=== PATIENT | female | born 1950 | race Caucasian/White ===

== ENCOUNTER 2020-04-17 18:19 | Emergency (ER) | payer MEDICARE, SELFPAY ==
[2020-04-17 18:28] VITALS: BP 155/68; PULSE 83; RESP 18; TEMP 38.6; O2SAT 99; BMI 28.3
--- NOTE | 2020-04-17 18:55 | W.ED.FEVER ---
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 On Sunday she had spent a significant amount of time sitting and talking to the patient's granddaughter across a table. Neither was masked. The granddaughter was positive for COVID at that time and had apparently been symptomatic. My patient started running a fever and having body aches yesterday. She has had a cough, decreased taste and smell, sore throat. She has body aches but notes that she has had a recent flareup of polymyalgia rheumatica and is not currently on medications for it. She denies any other medical history. She does not feel short of breath and her oxygen saturation here is 100%. Associated symptoms: Reports chills; Deny abdominal pain, flank pain, chest pain, headache(s), nausea or vomiting Review of Systems General: Reports: 10 or more systems reviewed and unremarkable except in HPI and below Const: Reports: fever(s), chills and malaise; Denies: fatigue Eyes: Denies: change in vision ENMT: Denies: odynophagia Card: Denies: chest pain or swelling of feet/ankles Resp: Reports: non-productive cough; Denies: dyspnea or productive cough GI: Denies: abdominal pain, nausea or vomiting : Denies: flank pain or difficulty voiding Musc: Denies: neck pain or back pain Skin/Breast: Denies: rash Neuro: Denies: headache(s), numbness in extremities or weakness in extremities Osmany/Lymph: Denies: easy bruising or easy bleeding Physical Exam Const: COMMON NORMALS: no acute distress, patient oriented x3, no limitations and alert GENERAL APPEARANCE: cooperative and comfortable HENMT: HEAD & SCALP: normal to inspection FACE & SINUS: normal facial exam Eye: GENERAL EYE: appearance normal, both eyes and all related structures Neck/C-Spine: COMMON NORMALS: supple, no meningeal signs and no JVD Chest: COMMONS NORMALS: normal inspection of the chest Resp: COMMON NORMALS: normal respiratory effort, No use of accessory muscles and clear to auscultation bilaterally AUSCULTATION: clear to auscultation bilaterally Cardio: COMMON NORMALS: no JVD, regular rate, regular rhythm and No murmurs present (Cardio) RATE: regular rate RHYTHM: regular rhythm GI: COMMON NORMALS: Normal to inspection, nondistended, normoactive bowel sounds present, Soft to palpation and non-tender INSPECTION: Yes normal to inspection AUSCULTATION: Yes normoactive bowel sounds PALPATION: Yes Soft to palpation Back/Pelvis: COMMON NORMALS: thoracic and lumbar spine normal to inspection Extremity: COMMON NORMALS: normal to inspection Neuro: COMMON NORMALS: patient oriented x3, moves all extremities, no focal motor deficits and no sensory deficits noted SENSORIUM/ORIENTATION: Yes alert MENINGEAL SIGNS: Yes no meningeal signs Psych: COMMON NORMALS: mental status grossly normal, cooperative and normal affect Skin: COMMON NORMALS: no rashes or lesions noted and turgor normal GENERAL SKIN EXAM: no rashes or lesions noted and turgor normal Course Vital Signs: Vital signs: Vital Signs Temperature 101.5 F H 04/17/20 18:28 Pulse Rate 86 04/17/20 19:56 Respiratory Rate 16 04/17/20 19:56 Blood Pressure 144/83 04/17/20 19:56 Pulse Oximetry 98 04/17/20 19:56 MDM - Fever MDM Narrative: Medical decision making narrative: Patient with a potentially significant exposure to a COVID positive person. This would have occurred on Sunday. Her symptoms started last night with fever. Her symptoms are also consistent with COVID. COVID test was sent and we discussed at some length when admission was recommended, when dexamethasone was recommended. She asked about hydroxychloroquine and I did not want to prescribe that as there is no evidence showing benefit and there is evidence of potential harm. We discussed checking her oxygen saturations at home and she is able to do that. She will return if she has low oxygen saturations or feels short of breath or has any other new symptoms. She will stay off work until the test result is back and if positive will stay home beyond that. Discharge Plan Discharge Patient Disposition: Home Clinical Impression: COVID-19 virus test result unknown Fever Qualifiers: Fever type: unspecified Qualified Code(s): R50.9 - Fever, unspecified Condition: Stable Discharge Orders: Discharge Order (Routine); Ordered 04/17/20 Ordered By: Elizabeth Resendiz Referrals: Beto Hoffmann MD [Primary Care Provider] - Discharge Diet: Usual diet Discharge Activity: Resume usual activity Patient Instructions: Fever in Adults (ED) Activity Restrictions/Additional Instructions: Self isolate while awaiting tests results. Continue ibuprofen and or Tylenol for fever or body aches. Check your oxygen level with a pulse ox at home. If your saturations are consistently lower than 93%, or you feel short of breath please return to the ER immediately. Discharge Date/Time: 04/17/20 20:00 Coding Level of Care Code ED Dental Laboratory Technician for Herberth Stewart
[2020-04-17] MEDS: acetaminophen 500 mg Tablet 1000 MG PO (19:38)
[2020-04-17 19:56] VITALS: BP 144/83; PULSE 86; RESP 16; O2SAT 98
[2020-04-19 15:00] LABS: Quest SARS-CoV-2 RNA DETECTED (NOT DETECTED)
== END 2020-04-17 20:00 | disposition home or self-care (01) ==
PROVIDERS: Emergency Provider Emergency Medicine; PCP Family Medicine
DX: U07.1 COVID-19 (principal)
CPT/HCPCS: 12345; 87635; 99281; 99283

== ENCOUNTER → 2020-05-10 11:05 | Outpatient (BNVA) | payer MEDICARE, SELFPAY | PROVIDERS: PCP Family Medicine; Visit Provider Internal Medicine Rheumatology | DX: M35.3 Polymyalgia rheumatica (principal); Z79.899 Other long term (current) drug therapy; Z11.59 Encounter for screening for other viral diseases; Z11.1 Encounter for screening for respiratory tuberculosis; U07.1 COVID-19; M19.90 Unspecified osteoarthritis, unspecified site | CPT/HCPCS: 20610; 36415; 80076; 82306; 82565; 85025; 85651; 86140; 86431; 86480; 86704; 86803; 87340; 99204 ==

== ENCOUNTER 2020-06-08 14:35 | Outpatient (CLI) | payer MEDICARE, SELFPAY ==
--- NOTE | 2020-06-08 14:42 | XR_ITS ---
WS: [id number] CHEST 2 VIEWS HISTORY: inflammatory arthritis COMPARISON: None available. Lungs: Clear with no abnormality. No pleural effusion or pneumothorax. Cardiac size: Normal. Mediastinum/Aorta: Normal mediastinum. Bones: Mild increase in thoracic kyphosis. XR/XR chest 2V* [id number] IMPRESSION: No acute cardiopulmonary disease.
--- NOTE | 2020-06-08 14:42 | XR_ITS ---
WS: [id number] RIGHT KNEE: 3 VIEW(S) TECHNIQUE: AP, oblique(s) and lateral. HISTORY: inflammatory arthritis COMPARISON: None available. No fracture or dislocation. Mild tricompartment joint space narrowing. No erosions or osteophytes of any significance. No joint effusion. No soft tissue abnormality. XR/XR knee RT 3V* [id number] IMPRESSION: Mild tricompartment joint space narrowing. No erosions.
--- NOTE | 2020-06-08 14:42 | XR_ITS ---
WS: [id number] LEFT KNEE: 3 VIEW(S) TECHNIQUE: AP, oblique(s) and lateral. HISTORY: inflammatory arthritis COMPARISON: None available. No fracture or dislocation. Minimal tricompartment joint space narrowing. No erosions. No joint effusion. No soft tissue abnormality. XR/XR knee LT 3V* [id number] IMPRESSION: Minimal tricompartment joint space narrowing.
== END 2020-06-08 14:36 | disposition home or self-care (01) ==
LOC: RADWPI 14:38
PROVIDERS: PCP Family Medicine; Visit Provider Internal Medicine Rheumatology
DX: M19.90 Unspecified osteoarthritis, unspecified site (principal)
CPT/HCPCS: 71046; 73562

== ENCOUNTER → 2020-06-16 14:40 | Outpatient (BNVA) | payer MEDICARE, SELFPAY | PROVIDERS: PCP Family Medicine; Visit Provider Internal Medicine Rheumatology | DX: M05.79 Rheumatoid arthritis with rheumatoid factor of multiple sites without organ or systems involvement (principal); Z79.899 Other long term (current) drug therapy; Z87.39 Personal history of other diseases of the musculoskeletal system and connective tissue; Z86.19 Personal history of other infectious and parasitic diseases | CPT/HCPCS: 99214 ==

== ENCOUNTER → 2020-07-13 13:50 | Outpatient (BNVA) | payer MEDICARE, SELFPAY | PROVIDERS: PCP Family Medicine; Visit Provider Internal Medicine Rheumatology | DX: Z79.899 Other long term (current) drug therapy (principal) | CPT/HCPCS: 36415; 80076; 82565; 85025; 85651; 86140 ==

== ENCOUNTER 2020-07-30 08:47 | Outpatient (CLI) | payer MEDICARE, SELFPAY ==
--- NOTE | 2020-07-30 09:00 | CT_ITS ---
WS: [id number] CT scan of the abdominal aorta. Additional two-dimensional coronal and sagittal reconstruction was pe rformed. MIP images were also performed. 07/30/2020 Clinical Data: AAA Comparison: None. DLP: 897.[address] scans at [facility] use at least one of these dose optimization techniques: automat ed exposure control; mA and/or kV adjustment per patient size (includes targeted exams where dose is matched to clinical indication); or iterative reconstruction. Findings: Vascular findings: The abdominal aorta is normal in size. There is minimal atherosclerotic change of the abdominal aorta extending into the common iliac arteries. The renal arteries, celiac artery, SMA and MARTHA are all normal. The common iliac arteries bifurcate into the internal and external iliac lisette kailyn and these are normal. Abdominal findings: The lower lungs show no nodules masses or effusions. There is a small hiatal hernia. The liver, splee n, gallbladder, pancreas and adrenal glands are not remarkable. The kidneys show excellent bilateral contrast excretion with small bilateral cortical cysts. No masses, hydronephrosis or renal calculi ar e noted. The stomach, small bowel and colon show no abnormalities. There is fecal material throughout the colon and numerous sigmoid diverticula. No appendicitis or diverticulitis is seen. No abscess, a denopathy, ascites, mass, obstruction, or free air is seen. There is a minute anterior umbilical ruby ia containing only fat. The bladder and uterus are unremarkable. There is minimal osteoarthritic abad ges of the lumbar vertebral bodies with disc narrowing at L4-L5. CT/CT angio abdomen pelvis [id number] Impression: 1. Negative for abdominal aortic aneurysm. 2. Negative for acute intra-abdominal or pelvic abnormalities.
[2020-07-30] MEDS: iohexol 350 mg/mL 100 mL Btl IV (09:39)
== END 2020-07-30 08:48 | disposition home or self-care (01) ==
LOC: RADWPI 08:50
PROVIDERS: PCP Family Medicine; Visit Provider Internal Medicine Cardiovascular Disease
DX: I71.4 Abdominal aortic aneurysm, without rupture (principal)
CPT/HCPCS: 74174; Q9967

== ENCOUNTER 2020-08-31 09:01 | Outpatient (CLI) | payer MEDICARE, SELFPAY ==
--- NOTE | 2020-08-31 09:37 | ECG_ITS ---
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 Baseline heart rate was 65 beats per minute. Baseline blood pressure was 166/81 millimeters of mercury. Target heart rate was 151 beats per minute. Maximum heart rate achieved was 130, which was 86 % of the target heart rate. Maximum blood pressure was 215/96 millimeters of mercury. Total exercise time was 4 minutes 30 seconds. Maximum METs achieved was 5.4, maximum VO2 was 18.9 . The reason for ending the test was maximum effort achieved. The patient complained of shortness of breath during the stress test, which then resolved at the end of the test. ELECTROCARDIOGRAM: BASELINE: Sinus rhythm, normal axis, interventricular conduction delay, otherwise no significant ST-T changes at the baseline noted. EXERCISE: At the peak exercise level, no significant ST-T changes suggestive of ischemia noted. RECOVERY: During the recovery period, heart rate dropped appropriately. No significant ST-T changes in the recovery suggestive of ischemia noted. CONCLUSION: 1. Exercise capacity poor. 2. Heart rate response was appropriate. 3. Blood pressure response was hypertensive. 4. Symptoms not suggestive of ischemia. 5. Electrocardiogram portion of the stress test was not suggestive of ischemia. 6. Nuclear scan will be documented separately. Please note that due to underachievement of METs and low exercise capacity specificity and sensitivity of EKG portion of the stress test will be low. Electronically Signed On 08-31-2020 18:52:51 CASINO MANAGER by TERESITA RÍOS [id number]
--- NOTE | 2020-08-31 09:37 | NMCV_ITS ---
NM bienvenido perf SPECT r/s* [id number] Armida Lawler Age: 69 Gender: F : 1950 Exam Date: 08/31/2020 09:37 Ordering Phys: Sierra Ríos MD ([email or web address]) Technologist: PARIS Capps Exam Location: [facility] Indications: Chest pain STRESS TEST Please see separate stress test report in [facility] for full findings IMAGE PROTOCOL Rest/Stress 1 Exercise Day Radiopharmaceutical Dose (mCi) Administration Site Administered by Rest: Tc-99m 10.7 IV Gisella Dung, POWER CLEANER OPERATOR Sestamibi Stress:Tc-99m 32.6 IV Gisella Dung, POWER CLEANER OPERATOR Sestamibi Rest: 31-Aug-2020 60 Discovery 630 Stress: 31-Aug-2020 45 Discovery 630 Radiopharmaceutical was injected at 85 % maximum heart rate. Images obtained in supine and prone position. SPECT RESULTS Technical Quality: Good Raw Data Analysis: Breast attenuation Image Corrections: Patient motion artifact - motion correction applied supine stress only. Summed Stress Score: 0 Summed Rest Score: 0 Summed Difference Score: 0 PERFUSION FINDINGS SPECT images demonstrate homogeneous tracer distribution throughout the myocardium. FUNCTIONAL RESULTS (calculated via Gated SPECT) Stress Image LV EF (%): 76 Stress EDV (mL):54 TID: 0.84 Stress ESV (mL):13 Rest Image LV EF (%): 76 FUNCTIONAL FINDINGS: There is normal left ventricular systolic function. IMPRESSIONS Myocardial perfusion imaging is normal and low probability for obstructive coronary artery disease. EKG segment will be documented separately. Sierra Ríos MD (Electronically Signed) Final Date: 31 August 2020 18:46 S
[2020-08-31 09:40] VITALS: BMI 28.3
[2020-08-31 11:39] VITALS: BP 193/74; PULSE 98
== END 2020-08-31 09:02 | disposition home or self-care (01) ==
LOC: CDL 09:05
PROVIDERS: PCP Family Medicine; Visit Provider Internal Medicine Cardiovascular Disease
DX: R07.9 Chest pain, unspecified (principal)
CPT/HCPCS: 78452; 93017; A9500

== ENCOUNTER → 2020-09-23 12:56 | Outpatient (BNVA) | payer MEDICARE, SELFPAY | PROVIDERS: PCP Family Medicine; Visit Provider Internal Medicine Rheumatology | DX: M05.79 Rheumatoid arthritis with rheumatoid factor of multiple sites without organ or systems involvement (principal); Z87.39 Personal history of other diseases of the musculoskeletal system and connective tissue; Z79.899 Other long term (current) drug therapy; Z86.19 Personal history of other infectious and parasitic diseases | CPT/HCPCS: 99214 ==

== ENCOUNTER 2021-02-23 15:32 | Outpatient (RCR) | payer MEDICARE, SELFPAY | END 2021-03-16 23:59 | disposition home or self-care (01) | LOC: SPT 15:32 | PROVIDERS: PCP Family Medicine; Referring Provider Internal Medicine Rheumatology; Visit Provider Internal Medicine Rheumatology | DX: M05.79 Rheumatoid arthritis with rheumatoid factor of multiple sites without organ or systems involvement (principal) | CPT/HCPCS: 97161 ==

== ENCOUNTER 2021-03-17 06:00 | Outpatient (RCR) | payer MEDICARE, SELFPAY | END 2021-04-16 23:59 | disposition home or self-care (01) | LOC: SPT 06:00 | PROVIDERS: PCP Family Medicine; Referring Provider Internal Medicine Rheumatology; Visit Provider Internal Medicine Rheumatology | DX: M05.79 Rheumatoid arthritis with rheumatoid factor of multiple sites without organ or systems involvement (principal) | CPT/HCPCS: 97110 ==

== ENCOUNTER 2021-05-18 14:12 | Outpatient (CLI) | payer MEDICARE, SELFPAY | END 2021-05-18 16:00 | disposition home or self-care (01) | LOC: LAB 07-18 15:30 | PROVIDERS: PCP Family Medicine; Referring Provider Internal Medicine Rheumatology; Visit Provider Internal Medicine Rheumatology | DX: M05.79 Rheumatoid arthritis with rheumatoid factor of multiple sites without organ or systems involvement (principal); Z79.899 Other long term (current) drug therapy | CPT/HCPCS: 36415; 80076; 82565; 85025; 86140; 99214 ==

== ENCOUNTER → 2021-06-14 14:49 | Outpatient (BNVA) | payer MEDICARE, SELFPAY | PROVIDERS: PCP Family Medicine; Visit Provider Podiatrist Foot & Ankle Surgery | DX: M77.32 Calcaneal spur, left foot (principal); M25.572 Pain in left ankle and joints of left foot; M25.571 Pain in right ankle and joints of right foot | CPT/HCPCS: 73630 ==

== ENCOUNTER 2021-08-04 14:14 | Inpatient (IN) | payer MEDICARE, SELFPAY ==
[2021-08-04] VITALS (8 sets, daily range): BP systolic 86–129; BP diastolic 48–105; PULSE 67–92; RESP 19–38; TEMP 36.2–36.6; O2SAT 88–99; BMI 27.9
--- NOTE | 2021-08-04 15:17 | XR_ITS ---
WS: [id number] Exam: XR chest 1V portable [id number] Date/Time of Exam: 08/04/2021 3:33 PM Reason For Exam: SOB Comparison 06/08/2020 Mild interstitial groundglass infiltrate in the mid left lung. The right lung is clear. No pleural ef fusion or pneumothorax. Normal cardiomediastinal structures and bony elements. XR/XR chest 1V portable [id number] IMPRESSION: 1. Mild interstitial groundglass infiltrate in the mid left lung suspicious for pneumonia
--- NOTE | 2021-08-04 16:21 | ED_ITS ---
Documented by User: [email or web address] Peña 08/04/21 16:23 HPI - SOB/Dyspnea General: Chief Complaint: Shortness of Breath/Dyspnea Stated Complaint: SOB Time Seen by Provider: 08/04/21 15:10 History of Present Illness: HPI Narrative: Patient presents with increasing shortness of breath over the last 4 weeks. Has had labs drawn by primary care provider and they are still trying to figure out what is going on. Patient is post Covid 1 year. Patient complains about dizziness with standing. Feels weak. Also was told she had low iron. MD elicited complaint: shortness of breath Pertinent past history: other (Covid x1 year ago) Onset (ago): week(s) Timing: constant and progressively worsening Severity: severe Exacerbating factors: exertion Relieving factors: rest Associated symptoms: Reports lightheadedness and other (Denies black tarry stools or vomiting of blood); Deny abdominal pain, extremity pain, fever(s), nausea or vomiting Treatment prior to arrival: none Review of Systems Const: Reports: other (Weakness); Denies: fever(s), chills or body aches Eyes: Denies: change in vision or blurry vision ENMT: Denies: throat pain or nasal congestion Card: Reports: lightheadedness Resp: Reports: dyspnea; Denies: productive cough or non-productive cough GI: Denies: abdominal pain, nausea or vomiting Musc: Denies: extremity pain Skin/Breast: Denies: rash Neuro: Denies: headache(s) Psych: Denies: anxiety or depression Osmany/Lymph: Denies: easy bruising PFSH ED PFSH: Medical History Chest pain COVID-19 virus infection Family history of aortic aneurysm Family history of aortic aneurysm Frequent epistaxis High risk medication use History of polymyalgia rheumatica Hypertension Immunization counseling Inflammatory arthritis Joint pain Osteoarthritis Polymyalgia rheumatica Seropositive rheumatoid arthritis of multiple sites Uncontrolled hypertension Surgical History History of ankle surgery Family History Mother Aortic aneurysm Other Hypertension Rheumatoid arthritis Stroke Denies family history of Diabetes Lupus CAD (coronary artery disease) Cancer Social History Alcohol intake: never History of recent travel: No Physical Exam Const: COMMON NORMALS: no acute distress, average body habitus and patient oriented x3 HENMT: COMMON NORMALS: normocephalic HEAD & SCALP: normal to inspection and normocephalic FACE & SINUS: normal facial exam Eye: GENERAL EYE: appearance normal, both eyes and all related structures CONJUNCTIVA: Yes conjunctival abnormal (Very pale) Neck/C-Spine: COMMON NORMALS: no JVD Chest: COMMONS NORMALS: normal inspection of the chest Resp: COMMON NORMALS: normal respiratory effort and clear to auscultation bilaterally AUSCULTATION: clear to auscultation bilaterally Cardio: COMMON NORMALS: no JVD, regular rate and regular rhythm RATE: regular rate RHYTHM: regular rhythm GI: COMMON NORMALS: Normal to inspection, nondistended, normoactive bowel sounds present Extremity: COMMON NORMALS: normal to inspection and full ROM Neuro: COMMON NORMALS: patient oriented x3 Skin: OTHER: Patient appears pale Course Vital Signs: Vital signs: Vital Signs Temperature 97.2 F L 08/04/21 14:49 Pulse Rate 67 08/04/21 19:00 Respiratory Rate 36 H 08/04/21 19:00 Blood Pressure 120/67 08/04/21 19:00 Pulse Oximetry 88 L 08/04/21 19:00 MDM - SOB/Dyspnea Lab Data: Labs: Lab Results 08/04/21 08/04/21 08/04/21 16:43 16:43 16:43 WBC 11.7 10^3/uL H 10 ^3/uL (4.0-10.0) RBC 4.69 10^6/uL 10^6 /uL (4.1-5.3) Hgb 14.6 g/dL g/dL (11.5-15.3) Hct 40.2 % % (37.0-47.0) MCV 85.7 fl fl (81-99) MCH 31.1 pg pg (28.0-34.0) MCHC 36.3 g/dL H g/dL (30.0-36.0) RDW 13.6 % % (12.1-15.1) Plt Count 359 10^3/cmm 10^3 /cmm (130-400) MPV 10.4 fL fL (7.4-10.4) Lymph % (Auto) Not Reportable Carbon % (Auto) Not Reportable Lymph # (Auto) Not Reportable Carbon # (Auto) Not Reportable Total Counted 100 (0-100) Atypical Lymphs % 3.0 % % (0-5) Absolute Neutrophi ls 7.4 10^3/cmm H 10 ^3/cmm (1.4-6.5) Segmented Neutroph ils 49 % % Abs Segm Neuts (Ma n) 5.7 10/cmm 10/cmm (1.6-7.1) Band Neutrophils 14.0 % % Abs Band Neuts (Ma n) 1.6 10^3/cmm H 10 ^3/cmm (0.0-1.2) Absolute Lymphocyt es 2.7 10^3/cmm 10^3 /cmm (1.2-3.4) Lymphocytes (Manua l) 20 % % Monocytes (Manual) 8.0 % % Absolute Monocytes 0.9 10^3/cmm H 10 ^3/cmm (0.1-0.6) Eosinophils (Manua l) 5 % % Absolute Eosinophi ls 0.5 10^3/cmm 10^3 /cmm (0.0-0.7) Basophils (Manual) 0.0 % % Absolute Basophils 0.0 10^3/cmm 10^3 /cmm (0.0-0.2) Metamyelocytes 1.0 % % Platelet Estimate Normal (Normal) PT 15.30 SECONDS H S ECONDS (12.1-14.9) INR 1.17 (0.8-1.2) D-Dimer 1.91 ug/mIFEU H u g/mIFEU (0-0.59) Specimen Type Sample Site Jose Test VBG pH VBG pCO2 VBG pO2 VBG HCO3 VBG Base Excess VBG Hematocrit O2 Delivery Device Crib Pad Maker ID Sodium 125 mmol/L L mmol /L (136-145) Potassium 3.3 mmol/L L mmol /L (3.5-5.1) Chloride 87 mmol/L L mmol/ L (98-107) Carbon Dioxide 22 mmol/L mmol/L (22-29) Anion Gap 19.3 H (5-19) BUN 23 mg/dL mg/dL (8-23) Creatinine 2.0 mg/dL H mg/dL (0.5-0.9) GFR Calculation 24.6 mL/min L mL/ min (90-130) Glucose 95 mg/dL mg/dL (65-115) Calculated Osmolal ity 263 mOsm/kg L mOs m/kg (285-295) Lactic Acid Calcium 10.8 mg/dL H mg/d L (8.5-10.5) Total Bilirubin 0.2 mg/dL mg/dL (0.15-1.2) AST 20 U/L U/L (0-32) ALT 11 U/L U/L (0-33) Alkaline Phosphata se 74 IU/L IU/L (35-105) NT-Pro-B Natriuret Pep Total Protein 6.8 g/dL g/dL (6.6-8.7) Albumin 3.5 g/dL g/dL (3.5-5.2) Globulin 3.3 g/dL g/dL (1.3-4.6) Blood Type Rho(D) Type Antibody Screen 08/04/21 08/04/21 08/04/21 16:43 16:43 16:43 WBC RBC Hgb Hct MCV MCH MCHC RDW Plt Count MPV Lymph % (Auto) Carbon % (Auto) Lymph # (Auto) Carbon # (Auto) Total Counted Atypical Lymphs % Absolute Neutrophi ls Segmented Neutroph ils Abs Segm Neuts (Ma n) Band Neutrophils Abs Band Neuts (Ma n) Absolute Lymphocyt es Lymphocytes (Manua l) Monocytes (Manual) Absolute Monocytes Eosinophils (Manua l) Absolute Eosinophi ls Basophils (Manual) Absolute Basophils Metamyelocytes Platelet Estimate PT INR D-Dimer Specimen Type Sample Site Jose Test VBG pH VBG pCO2 VBG pO2 VBG HCO3 VBG Base Excess VBG Hematocrit O2 Delivery Device Crib Pad Maker ID Sodium Potassium Chloride Carbon Dioxide Anion Gap BUN Creatinine GFR Calculation Glucose Calculated Osmolal ity Lactic Acid 1.3 mmol/L mmol/L (0.5-2.2) Calcium Total Bilirubin Cancelled AST ALT Alkaline Phosphata se NT-Pro-B Natriuret Pep Total Protein Albumin Globulin Blood Type A Negative Rho(D) Type Negative Antibody Screen Negative 08/04/21 08/04/21 16:43 18:18 WBC RBC Hgb Hct MCV MCH MCHC RDW Plt Count MPV Lymph % (Auto) Carbon % (Auto) Lymph # (Auto) Carbon # (Auto) Total Counted Atypical Lymphs % Absolute Neutrophi ls Segmented Neutroph ils Abs Segm Neuts (Ma n) Band Neutrophils Abs Band Neuts (Ma n) Absolute Lymphocyt es Lymphocytes (Manua l) Monocytes (Manual) Absolute Monocytes Eosinophils (Manua l) Absolute Eosinophi ls Basophils (Manual) Absolute Basophils Metamyelocytes Platelet Estimate PT INR D-Dimer Specimen Type Venous Sample Site Not Reportable Jose Test N/a VBG pH 7.35 (7.32-7.42) VBG pCO2 44.2 mmHg mmHg (41-51) VBG pO2 29.8 mmHg mmHg (25-40) VBG HCO3 24.6 mmol/L mmol/ L (24-28) VBG Base Excess -1.0 mmol/L mmol/ L (-3.0-3.0) VBG Hematocrit 30.8 % L % (37-47) O2 Delivery Device Not Reportable Crib Pad Maker ID Cak Sodium Potassium Chloride Carbon Dioxide Anion Gap BUN Creatinine GFR Calculation Glucose Calculated Osmolal ity Lactic Acid Calcium Total Bilirubin AST ALT Alkaline Phosphata se NT-Pro-B Natriuret Pep 201 pg/mL H pg/mL (0-125) Total Protein Albumin Globulin Blood Type Rho(D) Type Antibody Screen Discharge Plan Discharge Patient Disposition: Admitted As Inpatient Clinical Impression: Hypoxia, NATALIA (acute kidney injury) Condition: Stable Coding Level of Care Code ED Physician Recruiter for g Fwd Exam Comprehensive Documented by User: Nickolas Pena MD 08/04/21 19:58 HPI - SOB/Dyspnea General: Chief Complaint: Shortness of Breath/Dyspnea Stated Complaint: SOB Time Seen by Provider: 08/04/21 15:10 PFSH ED PFSH: Medical History Chest pain COVID-19 virus infection Family history of aortic aneurysm Family history of aortic aneurysm Frequent epistaxis High risk medication use History of polymyalgia rheumatica Hypertension Immunization counseling Inflammatory arthritis Joint pain Osteoarthritis Polymyalgia rheumatica Seropositive rheumatoid arthritis of multiple sites Uncontrolled hypertension Surgical History History of ankle surgery Family History Mother Aortic aneurysm Other Hypertension Rheumatoid arthritis Stroke Denies family history of Diabetes Lupus CAD (coronary artery disease) Cancer Social History Alcohol intake: never History of recent travel: No Course ED course: Assumed care of patient at 1630 this afternoon. Reexamined and took history from patient. States she has had a generalized weakness intermittent nausea and vomiting shortness of breath for the last 4 weeks. No significant change today. She has had numerous visit with her primary care provider with labs as recently as last week. Has not gotten any answers with this. No significant change today she is here because her primary doctor was afraid that she had a blood clot. Denies fevers chills chest pain endorses shortness of breath nausea vomiting no diarrhea or constipation no rashes no altered mental status endorses generalized weakness denies dysuria. Patient has an elevated creatinine at 2.0 which is much higher than her baseline. She also continues to require 3 L of oxygen. Imaging did not show any acute issues but did show a contrast-enhancing lesion behind the gallbladder to the liver which will need further evaluation. Will discuss with hospitalist regarding admission Spoke to hospitalist who agrees with admission Vital Signs: Vital signs: Vital Signs Temperature 97.2 F L 08/04/21 14:49 Pulse Rate 67 08/04/21 19:00 Respiratory Rate 36 H 08/04/21 19:00 Blood Pressure 120/67 08/04/21 19:00 Pulse Oximetry 88 L 08/04/21 19:00 MDM - SOB/Dyspnea MDM Narrative: Medical decision making narrative: Patient is a 70-year-old female here with hypotension generalized weakness nausea and vomiting. Requiring oxygen Differential is broad including sepsis, pneumonia, pulmonary embolism, neoplasm. Will do broad work-up on her as far as immediate concerns she is hypotensive Lab Data: Labs: Lab Results 08/04/21 08/04/21 08/04/21 16:43 16:43 16:43 WBC 11.7 10^3/uL H 10 ^3/uL (4.0-10.0) RBC 4.69 10^6/uL 10^6 /uL (4.1-5.3) Hgb 14.6 g/dL g/dL (11.5-15.3) Hct 40.2 % % (37.0-47.0) MCV 85.7 fl fl (81-99) MCH 31.1 pg pg (28.0-34.0) MCHC 36.3 g/dL H g/dL (30.0-36.0) RDW 13.6 % % (12.1-15.1) Plt Count 359 10^3/cmm 10^3 /cmm (130-400) MPV 10.4 fL fL (7.4-10.4) Lymph % (Auto) Not Reportable Carbon % (Auto) Not Reportable Lymph # (Auto) Not Reportable Carbon # (Auto) Not Reportable Total Counted 100 (0-100) Atypical Lymphs % 3.0 % % (0-5) Absolute Neutrophi ls 7.4 10^3/cmm H 10 ^3/cmm (1.4-6.5) Segmented Neutroph ils 49 % % Abs Segm Neuts (Ma n) 5.7 10/cmm 10/cmm (1.6-7.1) Band Neutrophils 14.0 % % Abs Band Neuts (Ma n) 1.6 10^3/cmm H 10 ^3/cmm (0.0-1.2) Absolute Lymphocyt es 2.7 10^3/cmm 10^3 /cmm (1.2-3.4) Lymphocytes (Manua l) 20 % % Monocytes (Manual) 8.0 % % Absolute Monocytes 0.9 10^3/cmm H 10 ^3/cmm (0.1-0.6) Eosinophils (Manua l) 5 % % Absolute Eosinophi ls 0.5 10^3/cmm 10^3 /cmm (0.0-0.7) Basophils (Manual) 0.0 % % Absolute Basophils 0.0 10^3/cmm 10^3 /cmm (0.0-0.2) Metamyelocytes 1.0 % % Platelet Estimate Normal (Normal) PT 15.30 SECONDS H S ECONDS (12.1-14.9) INR 1.17 (0.8-1.2) D-Dimer 1.91 ug/mIFEU H u g/mIFEU (0-0.59) Specimen Type Sample Site Jose Test VBG pH VBG pCO2 VBG pO2 VBG HCO3 VBG Base Excess VBG Hematocrit O2 Delivery Device Crib Pad Maker ID Sodium 125 mmol/L L mmol /L (136-145) Potassium 3.3 mmol/L L mmol /L (3.5-5.1) Chloride 87 mmol/L L mmol/ L (98-107) Carbon Dioxide 22 mmol/L mmol/L (22-29) Anion Gap 19.3 H (5-19) BUN 23 mg/dL mg/dL (8-23) Creatinine 2.0 mg/dL H mg/dL (0.5-0.9) GFR Calculation 24.6 mL/min L mL/ min (90-130) Glucose 95 mg/dL mg/dL (65-115) Calculated Osmolal ity 263 mOsm/kg L mOs m/kg (285-295) Lactic Acid Calcium 10.8 mg/dL H mg/d L (8.5-10.5) Total Bilirubin 0.2 mg/dL mg/dL (0.15-1.2) AST 20 U/L U/L (0-32) ALT 11 U/L U/L (0-33) Alkaline Phosphata se 74 IU/L IU/L (35-105) NT-Pro-B Natriuret Pep Total Protein 6.8 g/dL g/dL (6.6-8.7) Albumin 3.5 g/dL g/dL (3.5-5.2) Globulin 3.3 g/dL g/dL (1.3-4.6) Blood Type Rho(D) Type Antibody Screen 08/04/21 08/04/21 08/04/21 16:43 16:43 16:43 WBC RBC Hgb Hct MCV MCH MCHC RDW Plt Count MPV Lymph % (Auto) Carbon % (Auto) Lymph # (Auto) Carbon # (Auto) Total Counted Atypical Lymphs % Absolute Neutrophi ls Segmented Neutroph ils Abs Segm Neuts (Ma n) Band Neutrophils Abs Band Neuts (Ma n) Absolute Lymphocyt es Lymphocytes (Manua l) Monocytes (Manual) Absolute Monocytes Eosinophils (Manua l) Absolute Eosinophi ls Basophils (Manual) Absolute Basophils Metamyelocytes Platelet Estimate PT INR D-Dimer Specimen Type Sample Site Jose Test VBG pH VBG pCO2 VBG pO2 VBG HCO3 VBG Base Excess VBG Hematocrit O2 Delivery Device Crib Pad Maker ID Sodium Potassium Chloride Carbon Dioxide Anion Gap BUN Creatinine GFR Calculation Glucose Calculated Osmolal ity Lactic Acid 1.3 mmol/L mmol/L (0.5-2.2) Calcium Total Bilirubin Cancelled AST ALT Alkaline Phosphata se NT-Pro-B Natriuret Pep Total Protein Albumin Globulin Blood Type A Negative Rho(D) Type Negative Antibody Screen Negative 08/04/21 08/04/21 16:43 18:18 WBC RBC Hgb Hct MCV MCH MCHC RDW Plt Count MPV Lymph % (Auto) Carbon % (Auto) Lymph # (Auto) Carbon # (Auto) Total Counted Atypical Lymphs % Absolute Neutrophi ls Segmented Neutroph ils Abs Segm Neuts (Ma n) Band Neutrophils Abs Band Neuts (Ma n) Absolute Lymphocyt es Lymphocytes (Manua l) Monocytes (Manual) Absolute Monocytes Eosinophils (Manua l) Absolute Eosinophi ls Basophils (Manual) Absolute Basophils Metamyelocytes Platelet Estimate PT INR D-Dimer Specimen Type Venous Sample Site Not Reportable Jose Test N/a VBG pH 7.35 (7.32-7.42) VBG pCO2 44.2 mmHg mmHg (41-51) VBG pO2 29.8 mmHg mmHg (25-40) VBG HCO3 24.6 mmol/L mmol/ L (24-28) VBG Base Excess -1.0 mmol/L mmol/ L (-3.0-3.0) VBG Hematocrit 30.8 % L % (37-47) O2 Delivery Device Not Reportable Crib Pad Maker ID Cak Sodium Potassium Chloride Carbon Dioxide Anion Gap BUN Creatinine GFR Calculation Glucose Calculated Osmolal ity Lactic Acid Calcium Total Bilirubin AST ALT Alkaline Phosphata se NT-Pro-B Natriuret Pep 201 pg/mL H pg/mL (0-125) Total Protein Albumin Globulin Blood Type Rho(D) Type Antibody Screen EKG Data^: EKG 1: Attestation: I personally reviewed and interpreted this EKG as follows: EKG Interpretation Date: 08/04/21 EKG interpretation time: 18:13 Interpretation: Normal sinus rhythm rate 67 MS interval 145 QRS 98 QTC 410 axis normal no evidence of ischemia or infarct Discharge Plan Discharge Patient Disposition: Admitted As Inpatient Clinical Impression: Hypoxia, NATALIA (acute kidney injury) Condition: Stable Coding Level of Care Code ED Physician Recruiter for [place] Fwd Exam Comprehensive
--- NOTE | 2021-08-04 16:34 | ECG_ITS ---
[facility] Test Date: 2021-08-04 Pat Name: Armida Lawler Department: Room: Gender: Female [employer] Professional: : 1950 Requested By: Nickolas Isaac Order Number: [id number] Aris MD: Irais Isaac M.D. 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 [id number]
--- NOTE | 2021-08-04 16:46 | CTR_ITS ---
PROCEDURE INFORMATION: Exam: CTA Chest With Contrast Exam date and time: 08/04/2021 4:46 PM Age: 70 years old Clinical indication: Nausea and vomiting; Shortness of breath; Additional info: SOB, o2 req. Eval for pe. N/v, hypotension TECHNIQUE: Imaging protocol: Computed tomographic angiography of the chest with contrast. 3D rendering (Not supervised by radiologist): MIP and/or 3D reconstructed images were created by the technologist. Radiation optimization: All CT scans at this facility use at least one of these dose optimization techniques: automated exposure control; mA and/or kV adjustment per patient size (includes targeted exams where dose is matched to clinical indication); or iterative reconstruction. Contrast material: VISI 320; Contrast volume: 95 ml; Contrast route: INTRAVENOUS (IV); COMPARISON: CR XR chest 1V portable [id number] 08/04/2021 3:31 PM RADIATION DOSE METRICS: Total DLP (mGy-cm): 1377.28 FINDINGS: Pulmonary arteries: Normal. No pulmonary emboli. Aorta: Unremarkable. No aortic aneurysm. No aortic dissection. Lungs: Patchy bilateral ground-glass airspace opacities suggestive of an infectious process. Pleural spaces: Unremarkable. No pneumothorax. No pleural effusion. Heart: Coronary artery atherosclerotic calcifications. Lymph nodes: Prominent mediastinal lymph nodes measuring up to 17 mm, nonspecific. Bones/joints: Unremarkable. No acute fracture. Soft tissues: Unremarkable. IMPRESSION: 1. Negative for pulmonary embolus. 2. Prominent mediastinal lymph nodes measuring up to 17 mm, nonspecific. 3. Coronary artery atherosclerotic calcifications. 4. Patchy bilateral ground-glass airspace opacities suggestive of an infectious process. PROCEDURE INFORMATION: Exam: CT Abdomen And Pelvis With Contrast Exam date and time: 08/04/2021 4:46 PM Age: 70 years old Clinical indication: Nausea and vomiting; Shortness of breath; Additional info: SOB, o2 req. Eval for pe. N/v, hypotension TECHNIQUE: Imaging protocol: Computed tomography of the abdomen and pelvis with contrast. Radiation optimization: All CT scans at this facility use at least one of these dose optimization techniques: automated exposure control; mA and/or kV adjustment per patient size (includes targeted exams where dose is matched to clinical indication); or iterative reconstruction. Contrast material: VISI 320; Contrast volume: 95 ml; Contrast route: INTRAVENOUS (IV); COMPARISON: CR XR chest 1V portable [id number] 08/04/2021 3:31 PM RADIATION DOSE METRICS: Total DLP (mGy-cm): 1377.28 FINDINGS: Liver: Cystic lesion adjacent to the posterior aspect of the gallbladder measuring 3.6 cm in with suggestion of a small enhancing mural nodule on series 3, image 29, appears to be arising from the liver, similar to prior exam, consider further evaluation with a MRI given small enhancing nodule. Gallbladder and bile ducts: Normal. No calcified stones. No ductal dilation. Pancreas: Normal. No ductal dilation. Spleen: Normal. No splenomegaly. Adrenal glands: Normal. No mass. Kidneys and ureters: Right kidney cyst, negative for follow-up advised. Right kidney cysts, negative for follow-up advised. Stomach and bowel: Diverticulosis without diverticulitis. Appendix: No evidence of appendicitis. Intraperitoneal space: Unremarkable. No free air. No significant fluid collection. Vasculature: Unremarkable. No abdominal aortic aneurysm. Lymph nodes: Unremarkable. No enlarged lymph nodes. Urinary bladder: Unremarkable as visualized. Reproductive: Unremarkable as visualized. Bones/joints: Unremarkable. No acute fracture. Soft tissues: Unremarkable. CT/CT angio chest w abd pel w con IMPRESSION: 1. Negative for focal acute inflammatory process in the abdomen or pelvis. 2. Right kidney cyst, negative for follow-up advised. 3. Cystic lesion adjacent to the posterior aspect of the gallbladder measuring 3.6 cm in with suggestion of a small enhancing mural nodule on series 3, image 29, appears to be arising from the liver, similar to prior exam, consider further evaluation with a MRI given small enhancing nodule. 4. Right kidney cysts, negative for follow-up advised. 5. Diverticulosis without diverticulitis. Radiation Dose CTDIVOL = (mGy): DLP = 1377.28~1377.28 (mGy-cm)
[2021-08-04] MEDS: sodium chloride 0.9% 1,000 ML 999 ML IV (16:52)
--- NOTE | 2021-08-04 17:02 | PC.PHAR ---
PT STATES SHE TAKES CARE OF HER OWN MEDICATIONS-PT STATES SHE STOP TAKING HER METHOTREXATE ON SUNDAY STATES SHE DIDNT THINK IT WAS HELPING HER SO SHE STOPPED-PT STATES SHE IS NOT ALLERGIC TO IT-
[2021-08-04 17:27] LABS: Hematocrit 40.2 % (37.0-47.0); Hemoglobin 14.6 g/dL (11.5-15.3); Mean Corpuscular HGB Conc 36.3 g/dL (30.0-36.0); Mean Corpuscular Hemoglobin 31.1 pg (28.0-34.0); Mean Corpuscular Volume 85.7 fl (81-99); Mean Platelet Volume 10.4 fL (7.4-10.4); Platelet Count 359 10^3/cmm (130-400); Red Blood Count 4.69 10^6/uL (4.1-5.3); Red Cell Distribution Width 13.6 % (12.1-15.1); White Blood Count 11.7 10^3/uL (4.0-10.0)
[2021-08-04 17:29] LABS: Lactic Sepsis W/Reflex 1.3 mmol/L (0.5-2.2); Slide Review Slide Review Perform
[2021-08-04 17:31] LABS: Absolute Eosinophils 0.5 10^3/cmm (0.0-0.7); Absolute Segmented Neutrophil 5.7 10/cmm (1.6-7.1); Band Neutrophils Absolute 1.6 10^3/cmm (0.0-1.2); Eosinophils 5 %; Lymphocytes 20 %; Lymphocytes Absolute 2.7 10^3/cmm (1.2-3.4); Monocytes Absolute 0.9 10^3/cmm (0.1-0.6); Segmented Neutrophils 49 %; Total Cells Counted 100 (0-100)
[2021-08-04 17:33] LABS: Absolute Neutrophil 7.4 10^3/cmm (1.4-6.5); Platelet Estimate Normal (Normal)
[2021-08-04 17:35] LABS: Alanine Aminotransferase 11 U/L (0-33); Albumin Level 3.5 g/dL (3.5-5.2); Alkaline Phosphatase 74 IU/L (35-105); Anion Gap 19.3 (5-19); Aspartate Amino Transferase 20 U/L (0-32); Blood Urea Nitrogen 23 mg/dL (8-23); Calcium 10.8 mg/dL (8.5-10.5); Carbon Dioxide 22 mmol/L (22-29); Chloride 87 mmol/L (98-107); Globulin 3.3 g/dL (1.3-4.6); Glomerular Filtration Rate 24.6 mL/min (90-130); Glucose 95 mg/dL (65-115); INR 1.17 (0.8-1.2); Osmolality Calculated 263 mOsm/kg (285-295); Potassium 3.3 mmol/L (3.5-5.1); Sodium 125 mmol/L (136-145); Total Bilirubin 0.2 mg/dL (0.15-1.2); Total Protein 6.8 g/dL (6.6-8.7)
[2021-08-04 17:38] LABS: D Dimer 1.91 ug/mIFEU (0-0.59)
[2021-08-04] MEDS: iodixanol 320 mg/mL 100mL Btl IV (17:53)
[2021-08-04 18:14] LABS: NT Pro B Type Natriuretic Pept 201 pg/mL (0-125)
[2021-08-04 18:49] LABS: Blood Gas Operator Identificat CAK; Blood Gas Sample Type Venous; HCO3 VBG 24.6 mmol/L (24-28); PCO2 VBG 44.2 mmHg (41-51); PO2 VBG 29.8 mmHg (25-40); Venous Blood Gas Hematocrit 30.8 % (37-47); pH VBG 7.35 (7.32-7.42)
[2021-08-04 20:55] LABS: SARS Covid-2 Antigen Negative (Negative)
--- NOTE | 2021-08-04 21:55 | PM.HP ---
Providers/Chief Complaint Admitting Physician: Dacia Evans MD Primary Care Provider: Beto Hoffmann MD Chief Complaint: SOB History of Present Illness Armida Lawler is a 70 year old female with h/o RA on MTX and intermittent prn steroids, reports frequency to be once every 2-3 months, takes 10 days at a time. Presenting today with worsening shortness of breath over the past 4-6 weeks. Does not recall any preceeding URi symptoms or acute events priro to onset. Has noticed increased dyspnea on exertion over this time frame, now feeling SOB with less than usual activity. Dry cough+. No expectoration or hemoptysis. no chest pain, palpitations, syncope. No LE edema. No orthopnea. No known cardiac history. No fever. No past h/o COPD. reports seasonal asthma but has not needed inhalers in 10 years. h/o COVID 04/2020. Currently unvaccinated for covid 19. influenza vaccination taken. Non smoker. No occupational exposure. No significant travel history. ROS + for frequent nausea, vomiting, weight loss ~15 pounds over last 8 weeks. Upon presentation her sytsolic BP was noted to be 60s, improved with iv hydration Review of Systems General: Reports: 10 or more systems reviewed and unremarkable except in HPI and below Const: Denies: fever(s), chills or body aches Eyes: Denies: change in vision, blurry vision or photophobia ENMT: Reports: hoarseness; Denies: throat pain, enlarged tonsils, odynophagia or nasal congestion Card: Denies: chest pain, palpitations, irregular heart rhythm, edema, swelling of feet/ankles, lightheadedness, pre-syncope, dyspnea on exertion or orthopnea Resp: Denies: dyspnea, productive cough, non-productive cough, wheezing, stridor, pain on inspiration, change in phlegm color, hemoptysis or chest congestion GI: Denies: abdominal pain, nausea, vomiting, hematemesis, coffee ground emesis, dysphagia, heartburn, diarrhea, constipation, GI cramping, change in stool character, hematochezia or melena : Denies: flank pain, difficulty voiding, dysuria, urinary frequency, urinary urgency, urinary hesitancy or hematuria Musc: Denies: neck pain, back pain, extremity pain, joint swelling, joint warmth or deformity Neuro: Denies: headache(s), numbness in extremities, weakness in extremities, sensory changes, difficulty walking, frequent falls, dizziness, vertigo, behavioral changes, Slurred speech present or seizure-like activity Psych: Denies: anxiety, depression, suicidal ideation or homicidal ideation Endo: Denies: polyuria, polydipsia, tired all the time, cold intolerance or hot flashes Osmany/Lymph: Denies: easy bruising or easy bleeding Medications/Allergies Home Medications Medication Instructions Recorded Confirmed Last Taken Type venlafaxine 150 mg 300 mg PO QAM cap 05/10/20 08/04/21 08/04/21 07:00 History capsule,extended release 24 hr ondansetron HCl 4 mg tablet 4 mg PO DAILY PRN tab 07/21/20 08/04/21 Unknown History prednisone 10 mg tablet See Rx Instructions PO .COMPLEX 05/18/21 08/04/21 Unknown Rx PRN #30 tab cholecalciferol (vitamin D3) 25 mcg PO DAILY 08/04/21 08/04/21 Unknown History [Vitamin D3] diclofenac sodium 2 g TOPICAL QID PRN 08/04/21 08/04/21 Unknown History folic acid 1 mg PO QAM 08/04/21 08/04/21 08/04/21 07:00 History melatonin 10 mg PO BEDTIME PRN 08/04/21 08/04/21 Unknown History pantoprazole 40 mg PO QAM 08/04/21 08/04/21 08/04/21 07:00 History valsartan-hydrochlorothiazide 1 tab PO QAM 08/04/21 08/04/21 08/04/21 07:00 History Allergies Allergy/AdvReac Type Severity Reaction Status Date / Time No Known Allergies Allergy Verified 08/04/21 21:46 PFSH Acute PFSH: Medical History (Updated 08/05/21 @ 06:58 by Dacia Evans MD) Chest pain COVID-19 virus infection 04/2020 Family history of aortic aneurysm Family history of aortic aneurysm Frequent epistaxis High risk medication use History of polymyalgia rheumatica Hypertension Immunization counseling Inflammatory arthritis Joint pain Osteoarthritis Polymyalgia rheumatica Seropositive rheumatoid arthritis of multiple sites Uncontrolled hypertension Surgical History History of ankle surgery Family History Mother Aortic aneurysm Other Hypertension Rheumatoid arthritis Stroke Denies family history of Diabetes Lupus CAD (coronary artery disease) Cancer Social History Alcohol intake: never History of recent travel: No Vitals/I&O/Wt Last Vital Signs Temp 97.8 F 08/04/21 21:33 Pulse 71 08/04/21 21:33 Resp 19 H 08/04/21 21:33 BP 108/64 08/04/21 21:33 Pulse Ox 93 08/04/21 21:33 08/04/21 08/04/21 08/04/21 06:59 14:59 22:59 Intake Total 1000 / 1000 Balance 1000 / 1000 Weight last 48 hrs Weight 76.204 kg Physical Exam Narrative: EXAM NARRATIVE: General: No acute distress, AO x3 HEENT: PERRLA, pupils bilaterally equal and reactive, pallors not present Chest: Normal vesicular breath sounds, no added sounds, equal good air entry bilaterally CVS: S1-S2 regular, no murmurs, no tachycardia, no gallops, no rubs Abdomen: Soft, nontender, no organomegaly, bowel sounds present Neuro: No focal deficits, no facial deformity, AO x3, power 5/5 in all limbs Data : 08/04/21 16:43 08/05/21 04:56 Micro: Microbiology 08/04/21 18:00 Blood Culture - Preliminary Blood SPECIMEN COLLECTED 08/04/21 18:18 Blood Culture - Preliminary Blood SPECIMEN COLLECTED Attestation for Other Data: I personally reviewed and interpreted the following: Other data: Laboratory Results WBC 11.7 10^3/uL (4.0-10.0) H 08/04/21 16:43 RBC 4.69 10^6/uL (4.1-5.3) 08/04/21 16:43 Hgb 14.6 g/dL (11.5-15.3) 08/04/21 16:43 Hct 40.2 % (37.0-47.0) 08/04/21 16:43 MCV 85.7 fl (81-99) 08/04/21 16:43 MCH 31.1 pg (28.0-34.0) 08/04/21 16:43 MCHC 36.3 g/dL (30.0-36.0) H 08/04/21 16:43 RDW 13.6 % (12.1-15.1) 08/04/21 16:43 Plt Count 359 10^3/cmm (130-400) 08/04/21 16:43 MPV 10.4 fL (7.4-10.4) 08/04/21 16:43 Lymph % (Auto) Not Reportable 08/04/21 16:43 [place] % (Auto) Not Reportable 08/04/21 16:43 Lymph # (Auto) Not Reportable 08/04/21 16:43 [place] # (Auto) Not Reportable 08/04/21 16:43 Total Counted 100 (0-100) 08/04/21 16:43 Atypical Lymphs % 3.0 % (0-5) 08/04/21 16:43 Absolute Neutrophils 7.4 10^3/cmm (1.4-6.5) H 08/04/21 16:43 Segmented Neutrophils 49 % 08/04/21 16:43 Abs Segm Neuts (Man) 5.7 10/cmm (1.6-7.1) 08/04/21 16:43 Band Neutrophils 14.0 % 08/04/21 16:43 Abs Band Neuts (Man) 1.6 10^3/cmm (0.0-1.2) H 08/04/21 16:43 Absolute Lymphocytes 2.7 10^3/cmm (1.2-3.4) 08/04/21 16:43 Lymphocytes (Manual) 20 % 08/04/21 16:43 Monocytes (Manual) 8.0 % 08/04/21 16:43 Absolute Monocytes 0.9 10^3/cmm (0.1-0.6) H 08/04/21 16:43 Eosinophils (Manual) 5 % 08/04/21 16:43 Absolute Eosinophils 0.5 10^3/cmm (0.0-0.7) 08/04/21 16:43 Basophils (Manual) 0.0 % 08/04/21 16:43 Absolute Basophils 0.0 10^3/cmm (0.0-0.2) 08/04/21 16:43 Metamyelocytes 1.0 % 08/04/21 16:43 Platelet Estimate Normal (Normal) 08/04/21 16:43 PT 15.30 SECONDS (12.1-14.9) H 08/04/21 16:43 INR 1.17 (0.8-1.2) 08/04/21 16:43 D-Dimer 1.91 ug/mIFEU (0-0.59) H 08/04/21 16:43 Specimen Type Venous 08/04/21 18:18 Sample Site Not Reportable 08/04/21 18:18 Jose Test N/a 08/04/21 18:18 VBG pH 7.35 (7.32-7.42) 08/04/21 18:18 VBG pCO2 44.2 mmHg (41-51) 08/04/21 18:18 VBG pO2 29.8 mmHg (25-40) 08/04/21 18:18 VBG HCO3 24.6 mmol/L (24-28) 08/04/21 18:18 VBG Base Excess -1.0 mmol/L (-3.0-3.0) 08/04/21 18:18 VBG Hematocrit 30.8 % (37-47) L 08/04/21 18:18 O2 Delivery Device Not Reportable 08/04/21 18:18 Executive Officer ID Cak 08/04/21 18:18 Sodium 131 mmol/L (136-145) L 08/05/21 04:56 Potassium 3.2 mmol/L (3.5-5.1) L 08/05/21 04:56 Chloride 96 mmol/L (98-107) L 08/05/21 04:56 Carbon Dioxide 20 mmol/L (22-29) L 08/05/21 04:56 Anion Gap 18.2 (5-19) 08/05/21 04:56 BUN 23 mg/dL (8-23) 08/05/21 04:56 Creatinine 1.6 mg/dL (0.5-0.9) H 08/05/21 04:56 GFR Calculation 31.9 mL/min (90-130) L 08/05/21 04:56 Glucose 88 mg/dL (65-115) 08/05/21 04:56 Calculated Osmolality 275 mOsm/kg (285-295) L 08/05/21 04:56 Lactic Acid 1.3 mmol/L (0.5-2.2) 08/04/21 16:43 Calcium 9.3 mg/dL (8.5-10.5) 08/05/21 04:56 Total Bilirubin 0.2 mg/dL (0.15-1.2) 08/05/21 04:56 AST 15 U/L (0-32) 08/05/21 04:56 ALT 9 U/L (0-33) 08/05/21 04:56 Alkaline Phosphatase 62 IU/L (35-105) 08/05/21 04:56 Lactate Dehydrogenase 313 U/L (135-214) H 08/04/21 16:43 NT-Pro-B Natriuret Pep 201 pg/mL (0-125) H 08/04/21 16:43 Total Protein 5.6 g/dL (6.6-8.7) L 08/05/21 04:56 Albumin 3.0 g/dL (3.5-5.2) L 08/05/21 04:56 Globulin 2.6 g/dL (1.3-4.6) 08/05/21 04:56 Procalcitonin 0.34 ng/mL (0-0.5) 08/04/21 16:43 TSH 15.44 uIU/mL (0.27-4.20) H 08/04/21 16:43 Random Cortisol 26.29 ug/dL (2.47-19.5) H 08/04/21 16:43 Influenza Type A Ag Negative (Negative) 08/04/21 23:00 Influenza Type B Ag Negative (Negative) 08/04/21 23:00 SARS-CoV-2 Ag (Rapid) Negative (Negative) 08/04/21 19:43 Blood Type A Negative 08/04/21 16:43 Rho(D) Type Negative 08/04/21 16:43 Antibody Screen Negative 08/04/21 16:43 Impressions Chest X-Ray 08/04/21 15:17 IMPRESSION: 1. Mild interstitial groundglass infiltrate in the mid left lung suspicious for pneumonia Chest/Abdomen/Pelvis CT 08/04/21 16:46 IMPRESSION: 1. Negative for focal acute inflammatory process in the abdomen or pelvis. 2. Right kidney cyst, negative for follow-up advised. 3. Cystic lesion adjacent to the posterior aspect of the gallbladder measuring 3.6 cm in with suggestion of a small enhancing mural nodule on series 3, image 29, appears to be arising from the liver, similar to prior exam, consider further evaluation with a MRI given small enhancing nodule. 4. Right kidney cysts, negative for follow-up advised. 5. Diverticulosis without diverticulitis. Radiation Dose CTDIVOL = (mGy): DLP = 1377.28~1377.28 (mGy-cm) A&P Assessment and plan (1) Ground glass opacity present on imaging of lung: non specific GGOs present B/L in all ling gudino new 02 requirement of 3lpm supplemental 02 denies URI type symptoms however cannot exclude viral pneumonitis- check influenza and COVID 19 PCR CTa negative for PE clinically does appear to have hypervolemia and pulmonary edema given chronic intermittent steroids concern also for possible mild PJP with imaging findings, check screening LDH and BDG, PJP PCR from induced aputum preferentially. Sputum gram stain and cx, urine legionella ag monitor off abx for now echocardiogram Status: Acute (2) NATALIA (acute kidney injury): hypotensive on admission to 60s, given 2L fluid bolus with improvement. NS to continue at 50 cc/hr hold valsartan- HCTZ Given also mild hypercalcemia and NATALIA, will check SPEP for MM/MGUS Status: Acute (3) Hypotension: may be dehydration from GI fluid loses hold antihypertensives Check random cortisol, TSH (not currently on prednisone, last used 10 days ago) Status: Acute Qualifiers: Hypotension type: other hypotension type Qualified Code(s): I95.89 - Other hypotension (4) Recurrent vomiting: Status: Acute (5) Seropositive rheumatoid arthritis of multiple sites: Holding off steroids for now patient stopped MTX on Sunday Status: Acute (6) Hyponatremia: may be related to dehydration vs HCTZ check urine lytes hold HCTZ recheck with am labs TSH, random cortisol as above Status: Acute Attestations Medical Necessity Statement*: antcipate >2midnight admission for above care Coding Level of Care Code 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
[2021-08-04] MEDS: sodium chloride 0.9% 1,000 ML 50 ML IV (21:57)
[2021-08-04 22:51] LABS: Cortisol Random 26.29 ug/dL (2.47-19.5); Procalcitonin 0.34 ng/mL (0-0.5); Thyroid Stimulating Hormone 15.44 uIU/mL (0.27-4.20)
[2021-08-04 23:01] LABS: Lactate Dehydrogenase 313 U/L (135-214)
[2021-08-05] VITALS: BP 98/59; PULSE 71; RESP 18; TEMP 37.1; O2SAT 92
[2021-08-05 00:14] LABS: Influenza A by IFA Negative (Negative); Influenza B by IFA Negative (Negative)
[2021-08-05 04:00] VITALS: BP 98/62; PULSE 65; RESP 17; TEMP 36.7; O2SAT 94
[2021-08-05 05:57] LABS: Basophils # 0.1 10^3/uL (0.0-0.1); Basophils % 0.9 %; Eosinophils # 0.5 10^3/uL (0.0-0.8); Eosinophils % 4.8 %; Hematocrit 27.2 % (37.0-47.0); Hemoglobin 9.3 g/dL (11.5-15.3); Lymphocytes # 2.8 10^3/uL (0.8-4.8); Mean Corpuscular HGB Conc 34.2 g/dL (30.0-36.0); Mean Corpuscular Hemoglobin 31.7 pg (28.0-34.0); Mean Corpuscular Volume 92.8 fl (81-99); Mean Platelet Volume 10.4 fL (7.4-10.4); Monocytes # 1.5 10^3/uL (0.2-0.9); Monocytes % 15.1 %; Neutrophils # 4.98 10^3/uL (1.8-7.7); Neutrophils % 49.7 %; Nucleated Red Blood Cells % 0 %; Platelet Count 364 10^3/cmm (130-400); Red Blood Count 2.93 10^6/uL (4.1-5.3); Red Cell Distribution Width 13.7 % (12.1-15.1)
[2021-08-05 06:23] LABS: Alanine Aminotransferase 9 U/L (0-33); Alkaline Phosphatase 62 IU/L (35-105); Anion Gap 18.2 (5-19); Aspartate Amino Transferase 15 U/L (0-32); Blood Urea Nitrogen 23 mg/dL (8-23); Calcium 9.3 mg/dL (8.5-10.5); Carbon Dioxide 20 mmol/L (22-29); Chloride 96 mmol/L (98-107); Globulin 2.6 g/dL (1.3-4.6); Glomerular Filtration Rate 31.9 mL/min (90-130); Glucose 88 mg/dL (65-115); Osmolality Calculated 275 mOsm/kg (285-295); Potassium 3.2 mmol/L (3.5-5.1); Sodium 131 mmol/L (136-145); Total Bilirubin 0.2 mg/dL (0.15-1.2); Total Protein 5.6 g/dL (6.6-8.7)
[2021-08-05] MEDS: folic acid 1 mg Tablet PO (06:41)
[2021-08-05] MEDS: pantoprazole DR 40 mg Tablet PO (06:42)
[2021-08-05] MEDS: venlafaxine ER (24HR) 150 mg Capsule 300 MG PO (06:42)
[2021-08-05 07:34] VITALS: BP 103/64; PULSE 67; RESP 17; TEMP 36.6; O2SAT 94
[2021-08-05 07:47] LABS: Slide Review Slide Review Perform
[2021-08-05 11:42] VITALS: BP 105/71; PULSE 74; RESP 18; TEMP 36.8; O2SAT 94
[2021-08-05] MEDS: levothyroxine 25 mcg Tablet PO (12:30)
--- NOTE | 2021-08-05 13:22 | P.PN_ITS ---
Subjective Subjective: Interval history: Patient was seen this morning, she tells me that she has a family history of rheumatoid arthritis, and a family history of Sridhar's granulomatosis, she was taking methotrexate rheumatoid arthritis, but she stopped taking it a week ago, she is thought that maybe it was a reason why she was not feeling well, she has been feeling well for the last few weeks, has been experiencing increased shortness of breath with exertion, no fevers, no cough, no lightheadedness, dizziness, no chest pain, no palpitations, no asthma history no COPD history, no smoking, no cardiovascular history, 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 [employer] Vitals/I&O/Wt Last Vital Signs Temp 98.2 F 08/05/21 11:42 Pulse 74 08/05/21 11:42 Resp 18 08/05/21 11:42 BP 105/71 08/05/21 11:42 Pulse Ox 94 08/05/21 11:42 08/04/21 08/05/21 08/05/21 22:59 06:59 14:59 Intake Total 1200 / 1200 200 / 1400 360 / 360 Balance 1200 / 1200 200 / 1400 360 / 360 Weight last 48 hrs Weight 76.204 kg Physical Exam Const: COMMON NORMALS: no acute distress and patient oriented x3 Resp: COMMON NORMALS: normal respiratory effort, No retractions, No use of accessory muscles and clear to auscultation bilaterally AUSCULTATION: clear to auscultation bilaterally Cardio: COMMON NORMALS: regular rate, regular rhythm, S1 normal heart sound present and S2 normal heart sound present RATE: regular rate RHYTHM: regular rhythm HEART SOUNDS: S1 normal heart sound present and S2 normal heart sound present GI: COMMON NORMALS: Normal to inspection, nondistended, normoactive bowel sounds present, Soft to palpation and non-tender PALPATION: Yes Soft to palpation Extremity: COMMON NORMALS: no pedal edema Neuro: COMMON NORMALS: patient oriented x3 Psych: COMMON NORMALS: mental status grossly normal Data : 08/05/21 04:56 08/05/21 04:56 Micro: Microbiology 08/04/21 18:00 Blood Culture - Preliminary Blood SPECIMEN COLLECTED 08/04/21 18:18 Blood Culture - Preliminary Blood SPECIMEN COLLECTED A&P Assessment and plan (1) Ground glass opacity present on imaging of lung: non specific GGOs present B/L in all ling gudino new 02 requirement of 3lpm supplemental 02 denies URI type symptoms however cannot exclude viral pneumonitis- COVID 19 PCR CTa negative for PE clinically does appear to have hypervolemia and pulmonary edema given chronic intermittent steroids concern also for possible mild PJP with imaging findings, check screening LDH and BDG, PJP PCR from induced aputum preferentially. Sputum gram stain and cx, urine legionella ag C-ANCA given family history of Sridhar's granulomatosis echocardiogram Status: Acute (2) NATALIA (acute kidney injury): hypotensive on admission to 60s, given 2L fluid bolus with improvement. NS to continue at 50 cc/hr hold valsartan- HCTZ Given also mild hypercalcemia and NATALIA, will check SPEP for MM/MGUS Status: Acute (3) Hypotension: may be dehydration from GI fluid loses hold antihypertensives Check random cortisol elevated, TSH elevated, will start 25 mcg of levothyroxine Status: Acute Qualifiers: Hypotension type: other hypotension type Qualified Code(s): I95.89 - Other hypotension (4) Recurrent vomiting: Status: Acute (5) Seropositive rheumatoid arthritis of multiple sites: Holding off steroids for now patient stopped MTX on Sunday Status: Acute (6) Hyponatremia: may be related to dehydration vs HCTZ check urine lytes hold HCTZ recheck with am labs Receiving IV fluids Status: Acute Attestations Medical Necessity Statement*: Patient requires hospitalization due to hypoxia, NATALIA, hyponatremia Coding Level of Care Code 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 [employer] Fwd Diagnoses Ground glass opacity present on imaging of lung R91.8 NATALIA (acute kidney injury) N17.9 Hypotension I95.89 Hypotension type: other hypotension type Recurrent vomiting R11.10 Seropositive rheumatoid arthritis of multiple sites M05.79 Hyponatremia E87.1
--- NOTE | 2021-08-05 13:26 | PC.CHAP ---
Pastoral Care Encounter/Spiritual Assessment Type of Contact [] Declined termite treater helper visit [] Patient/Family/Request visit [] Outpatient visit [] Follow-up visit [] Physician referral [] Code/Alert [] Routine visit [] Staff referral [] Actively dying [] Patient sleeping [] Family support [] [] Out of room [] Palliative care [] [] Receiving care in room [] Pre-surgical visit [] Trauma [] Long length of stay [] ICU visit [xx] Other: ISOLATION Relational/Emotional Strength [] Patient feels connected with others/family/visitors/staff [] Distress [] Loneliness/isolation [] Abandonment Spirituality of Patient [] Person of [place]u [] Attends Zoroastrianism of their [place] [] Believes in Prayer [] Reads Bible or Latter-Day materials [] There are Spiritual issues to be addressed Steamfitter Supervisor Interventions [] Prayer [] Active listening [] Non-anxious presence [] Spiritual/emotional support [] Crisis/trauma care [] Spiritual counseling [] Bereavement support [] Provided bereavement packet [] Provided Bible/devotional materials [] Provided toy/stuffed animal, coloring book to patient or family member [] Provided Communion [] Anointing/[place] [] Salvation [] Completed spiritual assessment [] Other: Impact on Illness or Injury [] Angry [] Fearful [] Anxious [] Often cries [] Exhaustion [] Unable to work [] Unable to attend baptism [] Unable to walk/stand [] Unable to read [] Unable to drive [] Unable to eat/drink [] Unable to sleep [] Unable to be with family [] Patient intubated [] Other: Summary Time spent with patient
[2021-08-05 14:53] LABS: Coronavirus Test Green County Not Detected
[2021-08-05 15:06] LABS: HIV 1 & 2 Antigen Non-Reactive (Non-Reactiv)
[2021-08-05 15:07] LABS: HIV 1 & 2 Antibody Non-Reactive (Non-Reactiv)
[2021-08-05 15:16] LABS: Hepatitis A Antibody IgM Non-Reactive (Nonreactive); Hepatitis B Core IgM Non-Reactive (Nonreactive); Hepatitis B Surface Antigen Non-Reactive (Nonreactive); Hepatitis C Virus Antibody Non-Reactive (Nonreactive)
[2021-08-05 16:00] VITALS: BP 112/69; PULSE 71; RESP 16; TEMP 36.8; O2SAT 90
[2021-08-05] MEDS: potassium chloride ER 20 mEq Tablet 40 MEQ PO (17:11)
[2021-08-05] MEDS: sodium chloride 0.9% 1,000 ML 50 ML IV (17:11)
[2021-08-05 20:00] VITALS: BP 132/73; PULSE 96; RESP 16; TEMP 37.1; O2SAT 98
--- NOTE | 2021-08-05 21:50 | USCV_ITS ---
Armida Lawler Age: 70 Gender: F : 1950 Exam Date: 08/05/2021 05:14 Ordering Phys: Dacia Evans MD Technologist: Elham Whitehead Exam Location: [facility] [place] Indication: SOB BP: 98 / 59 HR: 63 Rhythm: Sinus Technical Quality: Fair MEASUREMENTS (Male / Female) Normal Values 2D ECHO LV Diastolic Diameter PLAX 3.7 cm 4.2 - 5.9 / 3.9 - 5.3 cm LV Systolic Diameter PLAX 2.3 cm LV Chamber Size 3.1 cm IVS Diastolic Thickness 1.4 cm 0.6 - 1.0 / 0.6 - 0.9 cm IVS Systolic Thickness 2.0 cm LVPW Diastolic Thickness 1.5 cm 0.6 - 1.0 / 0.6 - 0.9 cm LVPW Systolic Thickness 1.6 cm RV Chamber Size 3.1 cm LVOT Diameter 2.0 cm LV Ejection Fraction 2D Teich 67.8 % LV Ejection Fraction MOD 2C 67.2 % LV Ejection Fraction 2C AL 65.3 % LA Diameter 2.9 cm LA Width 2.8 cm LA Height 3.6 cm RA Width 2.8 cm RA Height 3.4 cm Aorta at Sinotubular Diameter 2.6 cm M-MODE LV Diastolic Diameter MM 3.8 cm 4.2 - 5.9 / 3.9 - 5.3 cm LV Systolic Diameter MM 2.5 cm LV Ejection Fraction MM Teich 63.1 % IVS Diastolic Thickness MM 1.3 cm 0.6 - 1.0 / 0.6 - 0.9 cm IVS Systolic Thickness MM 1.5 cm LVPW Diastolic Thickness MM 1.6 cm 0.6 - 1.0 / 0.6 - 0.9 cm LVPW Systolic Thickness MM 1.8 cm Aortic Annulus Diameter 2.5 cm LA Ao Ratio MM 1.5 MV E Point Septal Separation 0.5 cm DOPPLER AV Peak Velocity 158.0 cm/s LVOT Peak Velocity 114.0 cm/s AV Area Cont Eq vti 2.4 cm squared AV Area Cont Eq pk 2.4 cm squared MV Area PHT 3.2 cm squared Mitral E to A Ratio 1.1 MV E' Velocity 50.0 cm/s Mitral E to MV E' Ratio 10.1 Mitral E to LV E' Lateral Ratio 10.1 Mitral E to LV E' Septal Ratio 10.2 TR Peak Velocity 161.1 cm/s TR Peak Gradient 10.4 mmHg TR Mean Velocity 123.5 cm/s TR Mean Gradient 7.5 mmHg TR Velocity Time Integral 48.0 cm TV Peak E Velocity 63.0 cm/s PV Peak Velocity 67.0 cm/s RV Acceleration Time 0.1 s RV Ejection Time 0.4 s RV AcT/ET 0.3 FINDINGS Left Ventricle Normal left ventricular size and systolic function, EF 55 %. No regional wall motion abnormalities. Right Ventricle The right ventricle is normal in size and function. Right Atrium The right atrium is normal in size. Left Atrium The left atrium is normal in size. Mitral Valve Trace mitral valve regurgitation. Aortic Valve Thickened aortic valve. Tricuspid Valve Trace tricuspid valve regurgitation. Pulmonic Valve No gross abnormalities noted Pericardium Normal pericardium without effusion. Aorta Normal ascending aorta dimension. CONCLUSIONS Normal left ventricular size and systolic function, EF 55 %. No regional wall motion abnormalities. Minimally thickened aortic valve Trace mitral valve regurgitation. There is no pericardial effusion. There are no intracardiac masses. No previous study is available for comparison. Dr Nelson Ambrose MD FACC (Electronically Signed) Final Date: 05 August 2021 14:02 S
[2021-08-06] VITALS (8 sets, daily range): BP systolic 99–110; BP diastolic 58–70; PULSE 70–85; RESP 16–18; TEMP 36.7–38; O2SAT 91–98
[2021-08-06] MEDS: levothyroxine 25 mcg Tablet PO (06:20)
[2021-08-06] MEDS: pantoprazole DR 40 mg Tablet PO (06:20)
[2021-08-06] MEDS: venlafaxine ER (24HR) 150 mg Capsule 300 MG PO (06:20)
[2021-08-06] MEDS: folic acid 1 mg Tablet PO (06:20)
[2021-08-06 06:39] LABS: Basophils # 0.1 10^3/uL (0.0-0.1); Basophils % 0.7 %; Eosinophils # 0.5 10^3/uL (0.0-0.8); Eosinophils % 6.2 %; Hematocrit 28.6 % (37.0-47.0); Hemoglobin 9.3 g/dL (11.5-15.3); Lymphocytes # 1.6 10^3/uL (0.8-4.8); Lymphocytes % 21.6 %; Mean Corpuscular HGB Conc 32.5 g/dL (30.0-36.0); Mean Corpuscular Hemoglobin 31.1 pg (28.0-34.0); Mean Corpuscular Volume 95.7 fl (81-99); Mean Platelet Volume 10.3 fL (7.4-10.4); Monocytes # 0.8 10^3/uL (0.2-0.9); Monocytes % 11.1 %; Neutrophils # 4.49 10^3/uL (1.8-7.7); Neutrophils % 59.1 %; Nucleated Red Blood Cells % 0 %; Platelet Count 322 10^3/cmm (130-400); Red Blood Count 2.99 10^6/uL (4.1-5.3); White Blood Count 7.6 10^3/uL (4.0-10.0)
[2021-08-06 07:04] LABS: Alanine Aminotransferase 8 U/L (0-33); Albumin Level 2.7 g/dL (3.5-5.2); Alkaline Phosphatase 60 IU/L (35-105); Aspartate Amino Transferase 15 U/L (0-32); Blood Urea Nitrogen 14 mg/dL (8-23); Calcium 9.7 mg/dL (8.5-10.5); Carbon Dioxide 19 mmol/L (22-29); Chloride 98 mmol/L (98-107); Creatinine Clr Calc Pharmacy 53.4522; Globulin 2.7 g/dL (1.3-4.6); Glomerular Filtration Rate 54.8 mL/min (90-130); Glucose 107 mg/dL (65-115); Magnesium 1.5 mg/dL (1.7-2.3); Osmolality Calculated 271 mOsm/kg (285-295); Phosphorus 3.5 mg/dL (2.5-4.5); Sodium 130 mmol/L (136-145); Total Bilirubin 0.2 mg/dL (0.15-1.2); Total Protein 5.4 g/dL (6.6-8.7)
[2021-08-06] MEDS: diphenhydrAMINE 50 mg/mL SDV 1mL 25 MG IVP (11:06)
[2021-08-06] MEDS: vancomycin 1,250 MG/250 ML PIGGYBACK 250 MG IV (11:59)
[2021-08-06] MEDS: levofloxacin-dextrose 5 % 750 MG/150 ML PREMIX 100 MG IV (13:08)
[2021-08-06] MEDS: piperacillin-tazobactam 3.375 GM in sodium chloride 0.9% (plus) 50 ML IV (15:07)
[2021-08-06] MEDS: sodium chloride 0.9% 1,000 ML 50 ML IV (16:50)
--- NOTE | 2021-08-06 17:01 | P.PN_ITS ---
Subjective Subjective: Interval history: Patient was seen this morning, she was febrile overnight, low-grade fevers, is on 3 L, no chest pain, no shortness of breath, no lightheadedness or dizziness, no nausea, vomiting, no diarrhea Vitals/I&O/Wt Last Vital Signs Temp 98.1 F 08/06/21 16:00 Pulse 82 08/06/21 16:00 Resp 16 08/06/21 16:00 BP 108/70 08/06/21 16:00 Pulse Ox 98 08/06/21 16:00 08/06/21 08/06/21 08/06/21 06:59 14:59 22:59 Intake Total 240 / 2161.667 1600 / 1600 Output Total 400 / 400 Balance 240 / 9324.303 2940 / 1600 -400 / 1200 Physical Exam Const: COMMON NORMALS: no acute distress and patient oriented x3 Resp: COMMON NORMALS: normal respiratory effort, No retractions, No use of accessory muscles and clear to auscultation bilaterally AUSCULTATION: clear to auscultation bilaterally Cardio: COMMON NORMALS: regular rate, regular rhythm, S1 normal heart sound present and S2 normal heart sound present RATE: regular rate RHYTHM: reg ular rhythm HEART SOUNDS: S1 normal heart sound present and S2 normal heart sound present GI: COMMON NORMALS: Normal to inspection, nondistended, normoactive bowel sounds present, Soft to palpation, non-tender and No hepatosplenomegaly present PALPATION: Yes Soft to palpation and Yes No hepatosplenomegaly present Extremity: COMMON NORMALS: no pedal edema Neuro: COMMON NORMALS: patient oriented x3 Psych: COMMON NORMALS: mental status grossly normal Data : 08/06/21 06:00 08/06/21 06:00 Micro: Microbiology 08/04/21 18:00 Blood Culture - Preliminary Blood NEGATIVE TO DATE 08/04/21 18:18 Blood Culture - Preliminary Blood NEGATIVE TO DATE A&P Assessment and plan (1) Ground glass opacity present on imaging of lung: non specific GGOs present B/L in all ling gudino new 02 requirement of 3lpm supplemental 02 -COVID-19 PCR negative denies URI type symptoms however cannot exclude viral pneumonitis CTa negative for PE clinically does appear to have hypervolemia and pulmonary edema given chronic intermittent steroids concern also for possible mild PJP with imaging findings, check screening LDH high at 313 and BDG pending, PJP PCR from induced aputum preferentially however she cannot cough. Sputum gram stain and cx, urine legionella ag C-ANCA given family history of Sridhar's granulomatosis echocardiogram shows normal ejection fraction of 55%, no regional wall motion abnormalities Blood cultures so far unremarkable For now we will start vancomycin, Zosyn, Levaquin Hopefully will have a bronchoscopy on Sunday by pulmonary service Status: Acute (2) NATALIA (acute kidney injury): hypotensive on admission to 60s, given 2L fluid bolus with improvement. NS to continue at 50 cc/hr hold valsartan- HCTZ Given also mild hypercalcemia and NATALIA, will check SPEP for MM/MGUS Status: Acute (3) Hypotension: may be dehydration from GI fluid loses hold antihypertensives Check random cortisol elevated, TSH elevated, will start 25 mcg of levothyroxine Status: Acute Qualifiers: Hypotension type: other hypotension type Qualified Code(s): I95.89 - Other hypotension (4) Recurrent vomiting: Status: Acute (5) Seropositive rheumatoid arthritis of multiple sites: Holding off steroids for now patient stopped MTX on Sunday Status: Acute (6) Hyponatremia: may be related to dehydration vs HCTZ check urine lytes hold HCTZ recheck with am labs Receiving IV fluids Status: Acute (7) Hypoxia: Status: Acute Attestations Medical Necessity Statement*: Patient requires hospitalization for hypoxia, groundglass opacities in lungs, Coding Level of Care Code 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
[2021-08-06] MEDS: magnesium sulfate premix 2 GM/50 ML PIGGYBACK IV (21:07)
[2021-08-07] VITALS: BP 104/60; PULSE 88; RESP 20; TEMP 37.6; O2SAT 96
[2021-08-07] MEDS: piperacillin-tazobactam 3.375 GM in sodium chloride 0.9% (plus) 50 ML IV ×3 (03:13→20:41)
[2021-08-07 04:00] VITALS: BP 98/62; PULSE 82; RESP 18; TEMP 37.7; O2SAT 90
[2021-08-07 05:28] LABS: Basophils % 0.2 %; Eosinophils # 1.1 10^3/uL (0.0-0.8); Eosinophils % 11.6 %; Hematocrit 28.9 % (37.0-47.0); Hemoglobin 9.5 g/dL (11.5-15.3); Lymphocytes # 1.3 10^3/uL (0.8-4.8); Lymphocytes % 13.9 %; Mean Corpuscular HGB Conc 32.9 g/dL (30.0-36.0); Mean Corpuscular Hemoglobin 31.1 pg (28.0-34.0); Mean Corpuscular Volume 94.8 fl (81-99); Mean Platelet Volume 10.5 fL (7.4-10.4); Monocytes # 1.1 10^3/uL (0.2-0.9); Monocytes % 11.6 %; Neutrophils # 5.52 10^3/uL (1.8-7.7); Neutrophils % 60.2 %; Nucleated Red Blood Cells % 0 %; Platelet Count 350 10^3/cmm (130-400); Red Blood Count 3.05 10^6/uL (4.1-5.3); Red Cell Distribution Width 14.1 % (12.1-15.1); White Blood Count 9.2 10^3/uL (4.0-10.0)
[2021-08-07] MEDS: levothyroxine 25 mcg Tablet PO (05:40)
[2021-08-07] MEDS: venlafaxine ER (24HR) 150 mg Capsule 300 MG PO (05:41)
[2021-08-07] MEDS: pantoprazole DR 40 mg Tablet PO (05:41)
[2021-08-07] MEDS: folic acid 1 mg Tablet PO (05:41)
[2021-08-07 05:46] LABS: NT Pro B Type Natriuretic Pept 408 pg/mL (0-125); Procalcitonin 0.11 ng/mL (0-0.5)
[2021-08-07 06:00] LABS: Alanine Aminotransferase 7 U/L (0-33); Albumin Level 2.6 g/dL (3.5-5.2); Alkaline Phosphatase 57 IU/L (35-105); Anion Gap 15.1 (5-19); Aspartate Amino Transferase 13 U/L (0-32); Blood Urea Nitrogen 11 mg/dL (8-23); C Reactive Protein 67.7 mg/L (0.0-4.9); Calcium 9.1 mg/dL (8.5-10.5); Carbon Dioxide 21 mmol/L (22-29); Chloride 97 mmol/L (98-107); Creatine Phosphokinase 26 U/L (26-192); Ferritin 228 ng/mL (15-150); Globulin 2.5 g/dL (1.3-4.6); Glomerular Filtration Rate 54.8 mL/min (90-130); Glucose 90 mg/dL (65-115); Magnesium 1.6 mg/dL (1.7-2.3); Osmolality Calculated 267 mOsm/kg (285-295); Phosphorus 2.8 mg/dL (2.5-4.5); Potassium 4.1 mmol/L (3.5-5.1); Sodium 129 mmol/L (136-145); Total Bilirubin 0.2 mg/dL (0.15-1.2); Total Protein 5.1 g/dL (6.6-8.7)
[2021-08-07 06:01] LABS: Creatinine Clr Calc Pharmacy 53.4522
[2021-08-07 06:18] LABS: Slide Review Slide Review Perform
[2021-08-07 07:15] VITALS: BP 96/62; PULSE 78; RESP 16; TEMP 36.6; O2SAT 92
[2021-08-07] MEDS: vancomycin 1,250 MG/250 ML PIGGYBACK 250 MG IV (10:11)
[2021-08-07] MEDS: levofloxacin-dextrose 5 % 750 MG/150 ML PREMIX 100 MG IV (11:39)
[2021-08-07 11:54] VITALS: BP 98/68; PULSE 79; RESP 16; TEMP 36.9; O2SAT 95
--- NOTE | 2021-08-07 12:10 | PC.SOCIAL ---
IMM Update Pg. 2 of IMM Updated and reviewed with patient, who verbalized understanding. Copy provided.
--- NOTE | 2021-08-07 15:04 | P.PN_ITS ---
Subjective Subjective: Interval history: Patient continued to have low-grade fevers overnight, no nausea, no vomiting, no chest pain, no palpitations, no diarrhea, no dysuria, Vitals/I&O/Wt Last Vital Signs Temp 98.4 F 08/07/21 11:54 Pulse 79 08/07/21 11:54 Resp 16 08/07/21 11:54 BP 98/68 08/07/21 11:54 Pulse Ox 95 08/07/21 11:54 08/07/21 08/07/21 08/07/21 06:59 14:59 22:59 Intake Total 50 / 50 Output Total 550 / 550 Balance -500 / -500 Physical Exam Const: COMMON NORMALS: no acute distress and patient oriented x3 Resp: COMMON NORMALS: normal respiratory effort, No retractions, No use of accessory muscles and clear to auscultation bilaterally AUSCULTATION: clear to auscultation bilaterally Cardio: COMMON NORMALS: regular rate, regular rhythm, S1 normal heart sound present and S2 normal heart sound present RATE: regular rate RHYTHM: regu lar rhythm HEART SOUNDS: S1 normal heart sound present and S2 normal heart sound present GI: COMMON NORMALS: Normal to inspection, nondistended, normoactive bowel sounds present, Soft to palpation, non-tender and No hepatosplenomegaly present PALPATION: Yes Soft to palpation and Yes No hepatosplenomegaly present Extremity: COMMON NORMALS: no pedal edema Neuro: COMMON NORMALS: patient oriented x3 Psych: COMMON NORMALS: mental status grossly normal Data : 08/07/21 04:33 08/07/21 04:33 A&P Assessment and plan (1) Ground glass opacity present on imaging of lung: non specific GGOs present B/L in all ling gudino new 02 requirement of 3lpm supplemental 02 -COVID-19 PCR negative denies URI type symptoms however cannot exclude viral pneumonitis CTa negative for PE clinically does not appearto have hypervolemia and pulmonary edema given chronic intermittent steroids concern also for possible mild PJP with imaging findings, check screening LDH high at 313 and BDG pending, PJP PCR from induced aputum preferentially however she cannot cough. Sputum gram stain and cx, urine legionella ag C-ANCA given family history of Sridhar's granulomatosis echocardiogram shows normal ejection fraction of 55%, no regional wall motion abnormalities Blood cultures so far unremarkable For now we will start vancomycin, Zosyn, Levaquin Hopefully will have a bronchoscopy on Sunday by pulmonary service Status: Acute (2) NATALIA (acute kidney injury): hypotensive on admission to 60s, given 2L fluid bolus with improvement. Status post IV fluids, creatinine 1.0 hold valsartan- HCTZ Given also mild hypercalcemia and NATALIA, will check SPEP for MM/MGUS Status: Acute (3) Hypotension: may be dehydration from GI fluid loses hold antihypertensives Check random cortisol elevated, TSH elevated, will start 25 mcg of levothyroxine Status: Acute Qualifiers: Hypotension type: other hypotension type Qualified Code(s): I95.89 - Other hypotension (4) Recurrent vomiting: Status: Acute (5) Seropositive rheumatoid arthritis of multiple sites: Holding off steroids for now patient stopped MTX on Sunday Status: Acute (6) Hyponatremia: may be related to dehydration vs HCTZ check urine lytes hold HCTZ recheck with am labs Stop IV fluids Status: Acute (7) Hypoxia: Status: Acute Attestations Medical Necessity Statement*: Patient requires hospitalization for groundglass opacities, requiring bronchoscopy Coding Level of Care Code 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
[2021-08-07 15:19] VITALS: BP 93/61; PULSE 92; RESP 21; TEMP 36.7; O2SAT 91
[2021-08-07] MEDS: magnesium sulfate premix 2 GM/50 ML PIGGYBACK IV ×2 (16:30→16:32)
[2021-08-07] MEDS: sodium chloride 0.9% 1,000 ML 50 ML IV (16:31)
[2021-08-07 20:00] VITALS: BP 100/66; PULSE 89; RESP 17; TEMP 36.8; O2SAT 96
[2021-08-08] VITALS (7 sets, daily range): BP systolic 92–149; BP diastolic 47–84; PULSE 71–81; RESP 16–18; TEMP 36.3–37.1; O2SAT 93–100
[2021-08-08] MEDS: piperacillin-tazobactam 3.375 GM in sodium chloride 0.9% (plus) 50 ML IV ×2 (03:40→17:25)
[2021-08-08 03:56] LABS: Basophils % 0.4 %; Eosinophils # 1.4 10^3/uL (0.0-0.8); Eosinophils % 14.6 %; Hematocrit 27.8 % (37.0-47.0); Lymphocytes # 1.5 10^3/uL (0.8-4.8); Lymphocytes % 15.5 %; Mean Corpuscular HGB Conc 32.4 g/dL (30.0-36.0); Mean Corpuscular Volume 95.9 fl (81-99); Mean Platelet Volume 10.6 fL (7.4-10.4); Monocytes # 1.3 10^3/uL (0.2-0.9); Monocytes % 12.6 %; Neutrophils # 5.24 10^3/uL (1.8-7.7); Nucleated Red Blood Cells % 0 %; Platelet Count 322 10^3/cmm (130-400); Red Cell Distribution Width 14.3 % (12.1-15.1); White Blood Count 9.9 10^3/uL (4.0-10.0)
[2021-08-08 04:26] LABS: NT Pro B Type Natriuretic Pept 160 pg/mL (0-125); Procalcitonin 0.12 ng/mL (0-0.5)
[2021-08-08 04:39] LABS: Alanine Aminotransferase 7 U/L (0-33); Albumin Level 2.6 g/dL (3.5-5.2); Alkaline Phosphatase 57 IU/L (35-105); Anion Gap 12.1 (5-19); Aspartate Amino Transferase 13 U/L (0-32); Blood Urea Nitrogen 12 mg/dL (8-23); C Reactive Protein 72.6 mg/L (0.0-4.9); Calcium 8.9 mg/dL (8.5-10.5); Carbon Dioxide 25 mmol/L (22-29); Chloride 98 mmol/L (98-107); Creatine Phosphokinase 26 U/L (26-192); Ferritin 231 ng/mL (15-150); Globulin 2.4 g/dL (1.3-4.6); Glomerular Filtration Rate 49.1 mL/min (90-130); Glucose 88 mg/dL (65-115); Magnesium 1.8 mg/dL (1.7-2.3); Osmolality Calculated 271 mOsm/kg (285-295); Phosphorus 3.3 mg/dL (2.5-4.5); Potassium 4.1 mmol/L (3.5-5.1); Sodium 131 mmol/L (136-145); Total Bilirubin 0.2 mg/dL (0.15-1.2)
[2021-08-08] MEDS: pantoprazole DR 40 mg Tablet PO (06:03)
[2021-08-08] MEDS: folic acid 1 mg Tablet PO (06:04)
[2021-08-08] MEDS: levothyroxine 25 mcg Tablet PO (06:04)
[2021-08-08] MEDS: venlafaxine ER (24HR) 150 mg Capsule 300 MG PO (06:04)
[2021-08-08 10:11] LABS: ABG PCO2 33.9 mmHg (35-45); ABG PH Result 7.47 (7.35-7.45); Alveolar-Arterial Oxygen Gradi 15.2 mmHg (5-10); Arterial Blood Gas Hematocrit 29.6 % (37-47); Base Excess ABG 1.2 mmol/L (-2.0-2.0); Blood Gas Allen Test Pos; Blood Gas Operator Identificat MONRO; Blood Gas Sample Site Radial, right; Blood Gas Sample Type Arterial; HCO3 ABG 24.7 mmol/L (22-26); HGB O2 Sat 94.1 % (95-100); Ionized Calcium Level - ABG 1.3 mmol/L (1.1-1.4); Methemoglobin 0.8 % (0.4-1.5); Oxygen Device NC; Oxygen Saturation ABG 95.8; PO2 ABG 70.8 mmHg (80.0-100.0); Total Hemoglobin 9.7 g/dL (12-16)
[2021-08-08] MEDS: vancomycin 1,250 MG/250 ML PIGGYBACK 250 MG IV (10:57)
--- NOTE | 2021-08-08 11:43 | PC.NURSE ---
Vancomycin paused d/t pt being taken to GI lab.
[2021-08-08] MEDS: sodium chloride 0.9% 1,000 ML 30 ML IV (11:50)
[2021-08-08 12:12] LABS: COMPLEMENT COMPONENT C3C 133 mg/dL (83-193); COMPLEMENT COMPONENT C4C 21 mg/dL (15-57)
[2021-08-08 12:41] LABS: CENTROMERE B ANTIBODY <1.0 NEG AI (<1.0 NEG); JO-1 ANTIBODY <1.0 NEG AI (<1.0 NEG); RNP ANTIBODY <1.0 NEG AI (<1.0 NEG); SCL-70 ANTIBODY <1.0 NEG AI (<1.0 NEG); SJOGREN'S ANTIBODY (SS-A) <1.0 NEG AI (<1.0 NEG); SM ANTIBODY <1.0 NEG AI (<1.0 NEG); SS-B <1.0 NEG AI (<1.0 NEG)
--- NOTE | 2021-08-08 12:48 | ANES.PREANE2 ---
Pre-Anesthetic Assessment Pre-Anesthetic Assessment: Height/Weight: Height 5 ft 5 in Weight 76.204 kg Temp Pulse Resp BP Pulse Ox 97.9 F 71 18 109/59 99 08/08/21 11:32 08/08/21 11:32 08/08/21 11:32 08/08/21 11:32 08/08/21 11:32 Preop Diagnosis: SOB Proposed Procedure: Operation Date: 08/08/21 15:10 Proposed Procedures p Bronchoscopy(Not Applicable) Olga Suárez MD Was Beta Skyla taken within 24 hours: N/A Was Clonidine taken within 24 hours: N/A Social: Social History: No alcohol and No tobacco Exam: Pre-Anes Outpt Exam: alert, oriented x 3, clear to auscultation bilaterally and regular rate & rhythm Airway: Submandibular: WNL MP: 2 Dentition: False (upper) History/ROS: No significant history except as noted Pulmonary: Pulmonary: LAN and SOB Comments: requiring O2 during hospital stay CV/HEM: CV/HEM: HTN : Comments: NATALIA Hepatic: Hepatic: None reported GI: GI: None reported Metabolic: Metabolic: None reported Musc/skel: Musc/skel: RA (methotrexate therapy) Neuropsych: Neuropsych: Anxiety and Depression Anesthetic Plan: ASA status: 2 Anesthesia: Anesthesia Evaluation and MAC Risk of > 500 ml blood loss (7ml/kg in children): No Meds/Allergies Current Medications: Current Medications Generic Name Dose Route Start Last Admin Trade Name Freq PRN Reason Stop Dose Admin Folic Acid 1 mg 08/05/21 06:00 08/08/21 06:04 Folic Acid 1 Mg Tablet PO 1 mg QAM AMADOR Administration Vancomycin/PEG/NAD A/Lysine/Water 1,250 mg in 250 m ls @ 250 mls/hr 08/06/21 10:00 08/08/21 11:12 Vancocin IV 0 mls/hr Q24H AMADOR Infusion Piperacillin Sod/T azobactam 50 mls @ 12.5 mls /hr 08/06/21 11:30 08/08/21 07:49 Sod 3.375 gm/ So dium Chloride IV Infused Q8H AMADOR Infusion Levofloxacin/Dextr ose 750 mg in 150 mls @ 100 mls/hr 08/06/21 11:00 08/07/21 18:53 Levaquin-D5w IV Infused Q24H AMADOR Infusion Protocol Levothyroxine Sodi um 25 mcg 08/05/21 09:05 08/08/21 06:04 Levothyroxine 25 Mcg Tablet PO 25 mcg QAM AMADOR Administration Pantoprazole Sodiu m 40 mg 08/05/21 06:00 08/08/21 06:[address] 40 Mg Tablet PO 40 mg QAM AMADOR Administration Venlafaxine HCl 300 mg 08/05/21 06:00 08/08/21 06:04 Venlafaxine Er ( 24hr) 150 Mg Capsu le PO 300 mg QAM AMADOR Administration PFSH Anesthesia PFSH: Medical History (Updated 08/05/21 @ 06:58 by Dacia Evans MD) Chest pain COVID-19 virus infection 04/2020 Family history of aortic aneurysm Family history of aortic aneurysm Frequent epistaxis High risk medication use History of polymyalgia rheumatica Hypertension Immunization counseling Inflammatory arthritis Joint pain Osteoarthritis Polymyalgia rheumatica Seropositive rheumatoid arthritis of multiple sites Uncontrolled hypertension Surgical History History of ankle surgery Family History Mother Aortic aneurysm Other Hypertension Rheumatoid arthritis Stroke Denies family history of Diabetes Lupus CAD (coronary artery disease) Cancer Social History Alcohol intake: never History of recent travel: No Data Anesthesia CBC & Chem 7: 08/08/21 03:03 08/08/21 03:03 Other Labs: Laboratory Results - last 48 hr 08/05/21 08/07/21 08/07/21 14:17 04:33 04:33 WBC 9.2 RBC 3.05 L Hgb 9.5 L Hct 28.9 L MCV 94.8 MCH 31.1 MCHC 32.9 RDW 14.1 Plt Count 350 MPV 10.5 H Neut % (Auto) 60.2 Lymph % (Auto) 13.9 [place] % (Auto) 11.6 Eos % (Auto) 11.6 Baso % (Auto) 0.2 Neut # (Auto) 5.52 Lymph # (Auto) 1.3 Madison # (Auto) 1.1 H Eos # (Auto) 1.1 H Baso # (Auto) 0.0 Nucleated RBC % (auto) 0 Nucleated RBCs # 0.0 Specimen Type Sample Site ABG pH ABG pCO2 ABG pO2 ABG HCO3 ABG O2 Saturation ABG Base Excess Jose Test A-a O2 Gradient Hematocrit Hgb O2 Saturation Carboxyhemoglobin Methemoglobin Total Hemoglobin Ionized Calcium O2 Delivery Device O2 Liters/Min FiO2 Gauge And Weigh Machine Operator ID Sodium 129 L Potassium 4.1 Chloride 97 L Carbon Dioxide 21 L Anion Gap 15.1 BUN 11 Creatinine 1.0 H GFR Calculation 54.8 L Glucose 90 Calculated Osmolality 267 L Calcium 9.1 Phosphorus 2.8 Magnesium 1.6 L Ferritin 228 H Total Bilirubin 0.2 AST 13 ALT 7 Alkaline Phosphatase 57 Creatine Kinase 26 C-Reactive Protein 67.7 H NT-Pro-B Natriuret Pep 408 H Total Protein 5.1 L Albumin 2.6 L Globulin 2.5 Procalcitonin 0.11 HIMANSHU-1 Antibody <1.0 neg SS-A Antibody <1.0 neg SS-B Antibody <1.0 neg Sm (Desir) Antibody <1.0 neg BRICK SIDING APPLICATOR Antibody <1.0 neg Scl-70 Antibody <1.0 neg Centromere B Antibody <1.0 neg Complement C3c 133 Complement C4c 08/08/21 08/08/21 08/08/21 03:03 03:03 10:00 WBC 9.9 RBC 2.90 L Hgb 9.0 L Hct 27.8 L MCV 95.9 MCH 31.0 MCHC 32.4 RDW 14.3 Plt Count 322 MPV 10.6 H Neut % (Auto) 53.0 Lymph % (Auto) 15.5 [place] % (Auto) 12.6 Eos % (Auto) 14.6 Baso % (Auto) 0.4 Neut # (Auto) 5.24 Lymph # (Auto) 1.5 Madison # (Auto) 1.3 H Eos # (Auto) 1.4 H Baso # (Auto) 0.0 Nucleated RBC % (auto) 0 Nucleated RBCs # 0.0 Specimen Type Arterial Sample Site Radial, right ABG pH 7.47 H ABG pCO2 33.9 L ABG pO2 70.8 L ABG HCO3 24.7 ABG O2 Saturation 95.8 ABG Base Excess 1.2 Jose Test Pos A-a O2 Gradient 15.2 H Hematocrit 29.6 L Hgb O2 Saturation 94.1 L Carboxyhemoglobin 1.0 Methemoglobin 0.8 Total Hemoglobin 9.7 L Ionized Calcium 1.3 O2 Delivery Device Nc O2 Liters/Min 3.0 FiO2 32.0 Gauge And Weigh Machine Operator ID Monro Sodium 131 L 133.0 Potassium 4.1 4.0 Chloride 98 Carbon Dioxide 25 Anion Gap 12.1 BUN 12 Creatinine 1.1 H GFR Calculation 49.1 L Glucose 88 88.0 Calculated Osmolality 271 L Calcium 8.9 Phosphorus 3.3 Magnesium 1.8 Ferritin 231 H Total Bilirubin 0.2 AST 13 ALT 7 Alkaline Phosphatase 57 Creatine Kinase 26 C-Reactive Protein 72.6 H NT-Pro-B Natriuret Pep 160 H Total Protein 5.0 L Albumin 2.6 L Globulin 2.4 Procalcitonin 0.12 HIMANSHU-1 Antibody SS-A Antibody SS-B Antibody Sm (Desir) Antibody BRICK SIDING APPLICATOR Antibody Scl-70 Antibody Centromere B Antibody Complement C3c Complement C4c Micro: Microbiology 08/04/21 15:00 Urine Culture - Final Urine,Clean Catch Cardiac Studies: Echocardiogram 08/05/21
[2021-08-08 12:56] LABS: COMPLEMENT, TOTAL (CH50) >60 U/mL (31-60)
--- NOTE | 2021-08-08 13:03 | P.CONIM_ITS ---
Providers/Reason For Consult Consulting Physician/Specialty*: Chepe Suárez MD/ Pulmonary Critical Care Reason for Consult*: Acute hypoxia in patient with underlying seropositive rheumatoid arthritis on immunosuppression Requesting Physician: Gianni Rueda MD Attending Physician: To Harris MD Primary Care Provider: Beto Hoffmann MD History of Present Illness History of Present Illness Upon chart review since admission, patient sent from GI clinic to ER on 08/04/2021 for worsening shortness of breath and desaturation to mid to low 80s on room air. Armida Lawler is a 70 year old female with h/o RA on MTX and intermittent prn steroids, reports frequency to be once every 2-3 months, takes 10 days at a time. Presented to ED on 08/04/2021 with worsening shortness of breath over the past 4-6 weeks. As per admitting note, she does not recall any preceeding URi symptoms or acute events prior to onset. Has noticed increased dyspnea on exertion over this time frame, now feeling SOB with less than usual activity. Dry cough+. No expectoration or hemoptysis. no chest pain, palpitations, syncope. No LE edema. No orthopnea. No known cardiac history. No fever. No past h/o COPD. reports seasonal asthma but has not needed inhalers in 10 years. h/o COVID 04/2020. Currently unvaccinated for covid 19. influenza vaccination taken. Non smoker. No occupational exposure. No significant travel history. Reported family history of rheumatoid arthritis and Sridhar's granulomatosis. She stopped taking her methotrexate 1 week back. 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 ROS + for frequent nausea, vomiting for several days, weight loss ~15 pounds over last 8 weeks. Upon presentation her sytsolic BP was noted to be 60s, improved with iv hydration. She required 3 L oxygen to maintain saturations greater than 90%. Since admission patient has a low-grade fevers and still requiring 3 L nasal cannula. CTA showed patchy bilateral ground-glass airspace opacities but negative for PE. Blood cultures negative to date. urine cultures were negative, low procalcitonin 0.12. Flu antigen, Covid rapid antigen and PCR negative. ANCA screen pending. LDH 313, CRP 72, BNP 160. Echo 08/05/2021 reported normal LV size and systolic function with EF 55% with no regional wall motion abnormalities. Minimally thickened AV and trace MV regurgitation. Pulmonary consultation requested for acute hypoxia and patient's with underlying rheumatoid arthritis on methotrexate and intermittent steroids and possible bronchoscopy to obtain BAL samples. Patient seen at bedside today Currently on 3 L nasal cannula saturating 93% -ABG today morning 7.4 /70/20 4/95% saturation on 3 L nasal cannula -Reported mild respiratory distress, no other complaints Labs and imaging reviewed Review of Systems General: Reports: 10 or more systems reviewed and unremarkable except in HPI and below Meds/Allergies Home Medications and Allergies Home Medications Medication Instructions Recorded Confirmed Last Taken Type venlafaxine 150 mg 300 mg PO QAM cap 05/10/20 08/04/21 08/04/21 07:00 History capsule,extended release 24 hr ondansetron HCl 4 mg tablet 4 mg PO DAILY PRN tab 07/21/20 08/04/21 Unknown History prednisone 10 mg tablet See Rx Instructions PO .COMPLEX 05/18/21 08/04/21 Unknown Rx PRN #30 tab cholecalciferol (vitamin D3) 25 mcg PO DAILY 08/04/21 08/04/21 Unknown History [Vitamin D3] diclofenac sodium 2 g TOPICAL QID PRN 08/04/21 08/04/21 Unknown History folic acid 1 mg PO QAM 08/04/21 08/04/21 08/04/21 07:00 History melatonin 10 mg PO BEDTIME PRN 08/04/21 08/04/21 Unknown History pantoprazole 40 mg PO QAM 08/04/21 08/04/21 08/04/21 07:00 History valsartan-hydrochlorothiazide 1 tab PO QAM 08/04/21 08/04/21 08/04/21 07:00 History Allergies Allergy/AdvReac Type Severity Reaction Status Date / Time No Known Allergies Allergy Verified 08/04/21 21:46 Current Medications Current Medications Generic Name Dose Route Start Last Admin Trade Name Freq PRN Reason Stop Dose Admin Folic Acid 1 mg 08/05/21 06:00 08/08/21 06:04 Folic Acid 1 Mg Tablet PO 1 mg QAM AMADOR Administration Vancomycin/PEG/NADA/Lysine/Water 1,250 mg in 250 mls @ 250 mls/hr 08/06/21 10:00 08/08/21 11:12 Vancocin IV 0 mls/hr Q24H AMADOR Infusion Piperacillin Sod/Tazobactam 50 mls @ 12.5 mls/hr 08/06/21 11:30 08/08/21 07:49 Sod 3.375 gm/ Sodium Chloride IV Infused Q8H AMADOR Infusion Levofloxacin/Dextrose 750 mg in 150 mls @ 100 mls/hr 08/06/21 11:00 08/07/21 18:53 Levaquin-D5w IV Infused Q24H AMADOR Infusion Protocol Levothyroxine Sodium 25 mcg 08/05/21 09:05 08/08/21 06:04 Levothyroxine 25 Mcg Tablet PO 25 mcg QAM AMADOR Administration Pantoprazole Sodium 40 mg 08/05/21 06:00 08/08/21 06:[address] 40 Mg Tablet PO 40 mg QAM AMADOR Administration Venlafaxine HCl 300 mg 08/05/21 06:00 08/08/21 06:04 Venlafaxine Er (24hr) 150 Mg Capsule PO 300 mg QAM AMADOR Administration PFSH Acute PFSH: Medical History Chest pain COVID-19 virus infection 04/2020 Family history of aortic aneurysm Family history of aortic aneurysm Frequent epistaxis High risk medication use History of polymyalgia rheumatica Hypertension Immunization counseling Inflammatory arthritis Joint pain Osteoarthritis Polymyalgia rheumatica Seropositive rheumatoid arthritis of multiple sites Uncontrolled hypertension Surgical History History of ankle surgery Family History Mother Aortic aneurysm Other Hypertension Rheumatoid arthritis Stroke Denies family history of Diabetes Lupus CAD (coronary artery disease) Cancer Social History Alcohol intake: never History of recent travel: No Vitals/I&O/Wt Last Vital Signs Temp 97.9 F 08/08/21 11:32 Pulse 71 08/08/21 11:32 Resp 18 08/08/21 11:32 BP 109/59 08/08/21 11:32 Pulse Ox 99 08/08/21 11:32 08/07/21 08/08/21 08/08/21 22:59 06:59 14:59 Intake Total 570 / 1620 50 / 1670 1212.5 / 1212.5 Output Total 300 / 850 Balance 270 / 770 50 / 820 1212.5 / 1212.5 Physical Exam Narrative: EXAM NARRATIVE: General: alert, NAD HEENT: conj clear, EOMI, PERRL, mmm, Neck: supple, no meningismus Heme: no cervical LAP Pulmonary: CTAB, no wheezing, rhonchi, crackles Cardiovascular: rrr, nl s1s2, no mrg Abdomen: soft, nt, nd, no r/g, bs+ Extremities: pulses +, no edema, no c/c : no CVA tenderness Skin: intact, no rash MSK: no back or neck pain Neurologic: grossly intact Data Labs: Other Labs: Laboratory Results WBC 9.9 10^3/uL (4.0- 10.0) 08/08/21 03:03 RBC 2.90 10^6/uL (4.1 -5.3) L 08/08/21 03:03 Hgb 9.0 g/dL (11.5-15 .3) L 08/08/21 03:03 Hct 27.8 % (37.0-47.0 ) L 08/08/21 03:03 MCV 95.9 fl (81-99) 08/08/21 03:03 MCH 31.0 pg (28.0-34. 0) 08/08/21 03:03 MCHC 32.4 g/dL (30.0-3 6.0) 08/08/21 03:03 RDW 14.3 % (12.1-15.1 ) 08/08/21 03:03 Plt Count 322 10^3/cmm (130 -400) 08/08/21 03:03 MPV 10.6 fL (7.4-10.4 ) H 08/08/21 03:03 Neut % (Auto) 53.0 % 08/08/21 03:03 Lymph % (Auto) 15.5 % 08/08/21 03:03 [place] % (Auto) 12.6 % 08/08/21 03:03 Eos % (Auto) 14.6 % 08/08/21 03:03 Baso % (Auto) 0.4 % 08/08/21 03:03 Neut # (Auto) 5.24 10^3/uL (1.8 -7.7) 08/08/21 03:03 Lymph # (Auto) 1.5 10^3/uL (0.8- 4.8) 08/08/21 03:03 [place] # (Auto) 1.3 10^3/uL (0.2- 0.9) H 08/08/21 03:03 Eos # (Auto) 1.4 10^3/uL (0.0- 0.8) H 08/08/21 03:03 Baso # (Auto) 0.0 10^3/uL (0.0- 0.1) 08/08/21 03:03 Nucleated RBC % (a uto) 0 % 08/08/21 03:03 Total Counted 100 (0-100) 08/04/21 16:43 Atypical Lymphs % 3.0 % (0-5) 08/04/21 16:43 Absolute Neutrophi ls 7.4 10^3/cmm (1.4 -6.5) H 08/04/21 16:43 Segmented Neutroph ils 49 % 08/04/21 16:43 Abs Segm Neuts (Ma n) 5.7 10/cmm (1.6-7 .1) 08/04/21 16:43 Band Neutrophils 14.0 % 08/04/21 16:43 Abs Band Neuts (Ma n) 1.6 10^3/cmm (0.0 -1.2) H 08/04/21 16:43 Absolute Lymphocyt es 2.7 10^3/cmm (1.2 -3.4) 08/04/21 16:43 Lymphocytes (Manua l) 20 % 08/04/21 16:43 Monocytes (Manual) 8.0 % 08/04/21 16:43 Absolute Monocytes 0.9 10^3/cmm (0.1 -0.6) H 08/04/21 16:43 Eosinophils (Manua l) 5 % 08/04/21 16:43 Absolute Eosinophi ls 0.5 10^3/cmm (0.0 -0.7) 08/04/21 16:43 Basophils (Manual) 0.0 % 08/04/21 16:43 Absolute Basophils 0.0 10^3/cmm (0.0 -0.2) 08/04/21 16:43 Metamyelocytes 1.0 % 08/04/21 16:43 Nucleated RBCs # 0.0 /100WBC 08/08/21 03:03 Platelet Estimate Normal (Normal) 08/04/21 16:43 PT 15.30 SECONDS (12 .1-14.9) H 08/04/21 16:43 INR 1.17 (0.8-1.2) 08/04/21 16:43 D-Dimer 1.91 ug/mIFEU (0- 0.59) H 08/04/21 16:43 Specimen Type Arterial 08/08/21 10:00 Sample Site Radial, right 08/08/21 10:00 ABG pH 7.47 (7.35-7.45) H 08/08/21 10:00 ABG pCO2 33.9 mmHg (35-45) L 08/08/21 10:00 ABG pO2 70.8 mmHg (80.0-1 00.0) L 08/08/21 10:00 ABG HCO3 24.7 mmol/L (22-2 6) 08/08/21 10:00 ABG O2 Saturation 95.8 08/08/21 10:00 ABG Base Excess 1.2 mmol/L (-2.0- 2.0) 08/08/21 10:00 Jose Test Pos 08/08/21 10:00 VBG pH 7.35 (7.32-7.42) 08/04/21 18:18 VBG pCO2 44.2 mmHg (41-51) 08/04/21 18:18 VBG pO2 29.8 mmHg (25-40) 08/04/21 18:18 VBG HCO3 24.6 mmol/L (24-2 8) 08/04/21 18:18 VBG Base Excess -1.0 mmol/L (-3.0 -3.0) 08/04/21 18:18 VBG Hematocrit 30.8 % (37-47) L 08/04/21 18:18 A-a O2 Gradient 15.2 mmHg (5-10) H 08/08/21 10:00 Hematocrit 29.6 % (37-47) L 08/08/21 10:00 Hgb O2 Saturation 94.1 % (95-100) L 08/08/21 10:00 Carboxyhemoglobin 1.0 %THgb (0.4-20 .1) 08/08/21 10:00 Methemoglobin 0.8 % (0.4-1.5) 08/08/21 10:00 Total Hemoglobin 9.7 g/dL (12-16) L 08/08/21 10:00 Sodium 133.0 mmol/L (131 -143) 08/08/21 10:00 Potassium 4.0 mmol/L (3.5-5 .0) 08/08/21 10:00 Glucose 88.0 mg/dL (70-11 5) 08/08/21 10:00 Ionized Calcium 1.3 mmol/L (1.1-1 .4) 08/08/21 10:00 O2 Delivery Device Nc 08/08/21 10:00 O2 Liters/Min 3.0 % 08/08/21 10:00 FiO2 32.0 % 08/08/21 10:00 Lithopone [employer] Worker ID [place] 08/08/21 10:00 Sodium 131 mmol/L (136-1 45) L 08/08/21 03:03 Potassium 4.1 mmol/L (3.5-5 .1) 08/08/21 03:03 Chloride 98 mmol/L (98-107 ) 08/08/21 03:03 Carbon Dioxide 25 mmol/L (22-29) 08/08/21 03:03 Anion Gap 12.1 (5-19) 08/08/21 03:03 BUN 12 mg/dL (8-23) 08/08/21 03:03 Creatinine 1.1 mg/dL (0.5-0. 9) H 08/08/21 03:03 GFR Calculation 49.1 mL/min (90-1 30) L 08/08/21 03:03 Glucose 88 mg/dL (65-115) 08/08/21 03:03 Calculated Osmolal ity 271 mOsm/kg (285- 295) L 08/08/21 03:03 Lactic Acid 1.3 mmol/L (0.5-2 .2) 08/04/21 16:43 Calcium 8.9 mg/dL (8.5-10 .5) 08/08/21 03:03 Phosphorus 3.3 mg/dL (2.5-4. 5) 08/08/21 03:03 Magnesium 1.8 mg/dL (1.7-2. 3) 08/08/21 03:03 Ferritin 231 ng/mL (15-150 ) H 08/08/21 03:03 Total Bilirubin 0.2 mg/dL (0.15-1 .2) 08/08/21 03:03 AST 13 U/L (0-32) 08/08/21 03:03 ALT 7 U/L (0-33) 08/08/21 03:03 Alkaline Phosphata se 57 IU/L (35-105) 08/08/21 03:03 Lactate Dehydrogen ase 313 U/L (135-214) H 08/04/21 16:43 Creatine Kinase 26 U/L (26-192) 08/08/21 03:03 C-Reactive Protein 72.6 mg/L (0.0-4. 9) H 08/08/21 03:03 NT-Pro-B Natriuret Pep 160 pg/mL (0-125) H 08/08/21 03:03 Total Protein 5.0 g/dL (6.6-8.7 ) L 08/08/21 03:03 Albumin 2.6 g/dL (3.5-5.2 ) L 08/08/21 03:03 Globulin 2.4 g/dL (1.3-4.6 ) 08/08/21 03:03 Jhtwo-5-Kztqxtdji 0.5 g/dL (0.2-0.3 ) H 08/04/21 04:56 Qutjn-0-Teqedisfd 1.0 g/dL (0.5-0.9 ) H 08/04/21 04:56 Gzzj-8-Ujaosamz 0.3 g/dL (0.4-0.6 ) L 08/04/21 04:56 Uylw-1-Bzbwksmp 0.3 g/dL (0.2-0.5 ) 08/04/21 04:56 Gamma Globulins 0.5 g/dL (0.8-1.7 ) L 08/04/21 04:56 Abnorm Protein Ban d 1 Not Reportable 08/04/21 04:56 Procalcitonin 0.12 ng/mL (0-0.5 ) 08/08/21 03:03 TSH 15.44 uIU/mL (0.2 7-4.20) H 08/04/21 16:43 Random Cortisol 26.29 ug/dL (2.47 -19.5) H 08/04/21 16:43 Ur Random Sodium 67 mmol/L 08/08/21 16:15 Ur Random Potassiu m 36 mmol/L 08/08/21 16:15 Ur Random Chloride 32 mmol/L 08/08/21 16:15 U Abnormal Prot Ba nd 2 Not Reportable 08/04/21 04:56 U Abnormal Prot Ba nd 3 Not Reportable 08/04/21 04:56 Pro Electrophoresi s Int See note 08/04/21 04:56 SARA IFA Animal Tis Res Negative (NEGATI VE) 08/05/21 14:17 HIMANSHU-1 Antibody <1.0 neg AI (<1.0 NEG) 08/05/21 14:17 SS-A Antibody <1.0 neg AI (<1.0 NEG) 08/05/21 14:17 SS-B Antibody <1.0 neg AI (<1.0 NEG) 08/05/21 14:17 Sm (Desir) Antibod y <1.0 neg AI (<1.0 NEG) 08/05/21 14:17 CHIEF INFORMATICS OFFICER Antibody <1.0 neg AI (<1.0 NEG) 08/05/21 14:17 Scl-70 Antibody <1.0 neg AI (<1.0 NEG) 08/05/21 14:17 Centromere B Antib cas <1.0 neg AI (<1.0 NEG) 08/05/21 14:17 Thyroid Peroxidase Ab 36 IU/mL (<9) H 08/05/21 14:17 Complement C3c 133 mg/dL (83-193 ) 08/05/21 14:17 Complement C4c 21 mg/dL (15-57) 08/05/21 14:17 CH50 Classical Pat hway >60 U/mL (31-60) H 08/05/21 14:17 Nasal/Oral COVID-1 9 PCR Not detected 08/04/21 23:00 Hepatitis A IgM Ab Non-reactive (No nreactive) 08/05/21 14:17 Hep Bs Antigen Non-reactive (No nreactive) 08/05/21 14:17 Hep B Core IgM Ab Non-reactive (No nreactive) 08/05/21 14:17 Hepatitis C Antibo dy Non-reactive (No nreactive) 08/05/21 14:17 HIV 1&2 Ab & HIV 1 Ag Non-reactive (No n-Reactiv) 08/05/21 14:17 HIV 1&2 Antibody Non-reactive (No n-Reactiv) 08/05/21 14:17 Influenza Type A A g Negative (Negati ve) 08/04/21 23:00 Influenza Type B A g Negative (Negati ve) 08/04/21 23:00 SARS-CoV-2 Ag (Rap id) Negative (Negati ve) 08/04/21 19:43 Blood Type A Negative 08/04/21 16:43 Rho(D) Type Negative 08/04/21 16:43 Antibody Screen Negative 08/04/21 16:43 Impressions Chest X-Ray 08/04/21 15:17 IMPRESSION: 1. Mild interstitial groundglass infiltrate in the mid left lung suspicious for pneumonia Chest/Abdomen/Pelvis CT 08/04/21 16:46 IMPRESSION: 1. Negative for focal acute inflammatory process in the abdomen or pelvis. 2. Right kidney cyst, negative for follow-up advised. 3. Cystic lesion adjacent to the posterior aspect of the gallbladder measuring 3.6 cm in with suggestion of a small enhancing mural nodule on series 3, image 29, appears to be arising from the liver, similar to prior exam, consider further evaluation with a MRI given small enhancing nodule. 4. Right kidney cysts, negative for follow-up advised. 5. Diverticulosis without diverticulitis. Radiation Dose CTDIVOL = (mGy): DLP = 1377.28~1377.28 (mGy-cm) Micro: Micro: Microbiology 08/04/21 15:00 Urine Culture - Fi nal Urine,Clean Catch A&P Assessment and plan (1) Acute respiratory failure with hypoxia: Status: Acute (2) NATALIA (acute kidney injury): Status: Acute (3) Shortness of breath: Status: Chronic (4) Recurrent vomiting: Status: Acute (5) Uncontrolled hypertension: Status: Acute (6) History of polymyalgia rheumatica: Status: Acute (7) Seropositive rheumatoid arthritis of multiple sites: Status: Acute (8) High risk medication use: Status: Acute (9) COVID-19 virus infection: Status: Acute (10) Immunosuppression-related infectious disease: Status: Acute #Dyspnea secondary to acute hypoxia requiring 3 L oxygen in patient with underlying seropositive rheumatoid arthritis on immunosuppressive medications #Patient was methotrexate until 1 week prior to admission #Chronic intermittent use of [id number]-72-gtc course once in every 2 to 3 months #Previous COVID-19 infection April 2020-unvaccinated #At risk for infectious diseases like PCP given her immunosuppression #Reported family history of Sridhar's granulomatosis #Bilateral patchy diffuse GGO's on CT chest-viral pneumonitis/PCP/exacerbation of ? RA-ILD /aspiration pneumonitis due persistent nausea/vomitings for several days prior to admission- -Currently requiring 3 L nasal cannula-ABG 7.4 /70/20 4/95% -A gradient 15, PF ratio 219 -Blood cultures negative to date. urine cultures were negative, Flu antigen, Covid rapid antigen and PCR negative. -LDH 313, CRP 72, BNP 160 -Echo 08/05/2021 reported normal LV size and systolic function with EF 55% with no regional wall motion abnormalities. Minimally thickened AV and trace MVR. -Low procalcitonin 0.12. Currently patient on vancomycin, Zosyn and levofloxacin -I ordered MRSA nares, respiratory viral panel, urine Legionella antigen, urine analysis to check for proteinuria, ANCA screen pending -Also patient underwent bronchoscopy today-which showed copious clear secretions bilaterally with normal mucosa and no endobronchial lesions -BAL obtained from RML and sent for Covid PCR, viral panel PCR, microbiology cultures, fungal cultures, beta D glucan assay, PCP PCR and staining -Recommended to start prednisone 60 mg daily for? NSIP pattern on her CT chest -Oxygen supplementation to keep saturations > 90% and supportive care for possible underlying viral pneumonitis untill results available -Based on PF ratio (219) and A-a gradient 15-patient has mild ARDS and given her history of immunosuppression-recommended to give atovaquone and treat as mild PCP until results are available -If MRSA nares negative-please discontinue vancomycin; discontinue Zosyn and Levaquin after total 7 days -Follow-up BAL cultures, PCP PCR, Covid PCR, viral panel, urine Legionella, Respiratory viral panel -Low suspicion for aspergillosis patient is not neutropenic and hence galactomannan is not sent Medical condition, related medications, treatment plan, bronchoscopy, possible complications-everything explained in detail to the patient. She verbalized understanding and agreed with the plan. Recommendations conveyed to hospitalist taking care of the patient Consult Attestations Medical Necessity Statement: Deferred to hospitalist taking care of the patient Time Spent in Patient Care: Greater than 35 minutes (>than 50% of time spent in counselling and/or direct pt care on unit) . 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
[2021-08-08 13:52] LABS: THYROID PEROXIDASE ANTIBODIES 36 IU/mL (<9)
--- NOTE | 2021-08-08 14:27 | PM.OP ---
Operative Report Date of procedure: August 08, 2021 Procedure: Flexible bronchoscopy with airway inspection, airway clearance of secretions and obtaining bronchoalveolar lavage sample Pre-Operative Diagnosis: Pneumonia Post-Operative Diagnosis: Same Indication: Bilateral patchy diffuse groundglass opacities on CT chest in patient with history of rheumatoid arthritis on methotrexate/intermittent 10-day courses of steroids-suspect viral pneumonitis/PCP pneumonia/bacterial pneumonia Anesthesia: MAC sedation as per anesthesia Pre-procedure Evaluation: Patient was evaluated clinically and ancillary testing reviewed. The risk of having active MTB infection is very low in my clinical judgement. ASA: 3 Malampati score: Grade 2 Consent: Consents were obtained from patient and placed in the chart Procedure Details: Time out was performed by the procedure team and nursing staff. The bronchoscope was introduced through bite caden. A bronchoscopic airway exam was performed to evaluate the visible tracheobronchial tree to the segmental level. Summary of Significant Findings: -Bronchoscope passed through bite caden, glottis identified, 4 ml 1% lidocaine instilled at the level of glottis and bronchoscope passed through mobile vocal cords into the main trachea and 2 mL of 1% lidocaine instilled in the trachea and main andrews visualized which were sharp and normal. After instilling 2 mL 1% lidocaine in each main bronchus, the scope was passed through the left mainstem bronchus, JOAN, Lingula, and LLL bronchi to the segmental and subsegmental level. No active bleeding noted. Mucosa appeared normal. Copious amounts of clear secretions noted which were suctioned right away. Then the scope was passed through the right bronchial tree to assess right mainstem bronchus, RBI, and RUL/RML/RLL bronchi to the segmental and subsegmental levels. No active bleeding noted. Mucosa appeared normal. Copious amounts of clear secretions noted through all segments and subsegments. 60 cc normal saline introduced into right middle lobe and after obtaining bronchoalveolar lavage samples, the bronchoscope was then removed and the procedure terminated. Estimated Blood Loss: None Specimens: Bronchoalveolar lavage was taken from right middle lobe and sent for microbiology cultures, viral PCR, fungal cultures, PCP PCR and staining, beta D glucan assay, Covid PCR. Complications:None; patient tolerated the procedure well. Disposition: Patient remains hemodynamically stable and saturating 95% on 3 L nasal cannula was transferred back to [facility] Chepe Suárez MD Pulmonary critical Care Medicine [facility] Pre-op Diagnosis: SOB Associated Problem List Diagnoses (1) Immunosuppression-related infectious disease: (2) Acute respiratory failure with hypoxia: (3) Ground glass opacity present on imaging of lung: (4) Shortness of breath: (5) High risk medication use:
[2021-08-08 14:53] LABS: ANA SCREEN, IFA NEGATIVE (NEGATIVE)
--- NOTE | 2021-08-08 14:55 | ANE.PACU2 ---
Inpatient post-anesthesia follow up: Airway intact: Yes Vital signs: Temperature 97.4 F Pulse Rate 77 Respiratory Rate 18 Blood Pressure 104/47 Pulse Oximetry 96 Oxygen Delivery Me thod Nasal Cannula Oxygen Flow Rate 4 Fraction of Inspir ed Oxygen Hydration adequate: Yes Nausea and vomiting: No Pain level: 2 Mental status: Baseline
[2021-08-08 15:28] LABS: ALBUMIN 2.5 g/dL (3.8-4.8); ALPHA 1 GLOBULIN 0.5 g/dL (0.2-0.3); BETA 1 GLOBULIN 0.3 g/dL (0.4-0.6); BETA 2 GLOBULIN 0.3 g/dL (0.2-0.5); GAMMA GLOBULIN 0.5 g/dL (0.8-1.7)
[2021-08-08] MEDS: levofloxacin-dextrose 5 % 750 MG/150 ML PREMIX 100 MG IV (16:10)
[2021-08-08] MEDS: diphenhydrAMINE 25 mg Capsule PO (17:25)
--- NOTE | 2021-08-08 17:30 | P.PN_ITS ---
Subjective Subjective: Interval history: Patient was seen and examined this morning continues to have shortness of breath with exertion, continues to require 4 L oxygen, has remained afebrile overnight. Currently n.p.o. for bronchoscopy today. Her other vitals and labs have been reviewed. Vitals/I&O/Wt Last Vital Signs Temp 97.4 F L 08/08/21 13:32 Pulse 77 08/08/21 13:45 Resp 18 08/08/21 13:45 BP 104/47 08/08/21 13:45 Pulse Ox 96 08/08/21 13:45 08/08/21 08/08/21 08/08/21 06:59 14:59 22:59 Intake Total 50 / 1670 1712.5 / 1712.5 187.5 / 1900.0 Output Total 1200 / 1200 Balance 50 / 820 1712.5 / 1712.5 -1012.5 / 700.0 Physical Exam Const: COMMON NORMALS: patient oriented x3 HENMT: COMMON NORMALS: normocephalic and atraumatic HEAD & SCALP: normocephalic and atraumatic Resp: COMMON NORMALS: clear to auscultation bilaterally EFFORT & INSPECTION: Yes symmetric chest movement AUSCULTATION: clear to auscultation bilaterally Cardio: COMMON NORMALS: regular rate, regular rhythm, S1 normal heart sound present, S2 normal heart sound present, No gallops present (Cardio), No murmurs present (Cardio), No rub (Cardio) and Peripheral pulses 2+ throughout RATE: regular rate RHYTHM: regular rhythm HEART SOUNDS: S1 normal heart sound present and S2 normal heart sound present PERIPHERAL PULSES: Peripheral pulses 2+ throughout GI: COMMON NORMALS: Normal to inspection, nondistended, normoactive bowel sounds present, Soft to palpation, non-tender, No hepatosplenomegaly present and no masses AUSCULTATION: Yes normoactive bowel sounds PALPATION: Yes Soft to palpation and Yes No hepatosplenomegaly present RECTAL EXAM: deferred Extremity: COMMON NORMALS: no clubbing, cyanosis or edema and no pedal edema Neuro: COMMON NORMALS: patient oriented x3 Data : 08/08/21 03:03 08/08/21 03:03 Micro: Microbiology 08/04/21 15:00 Urine Culture - Final Urine,Clean Catch A&P Assessment and plan (1) Ground glass opacity present on imaging of lung: non specific GGOs present B/L in all ling gudino new 02 requirement of 3lpm supplemental 02 -COVID-19 PCR negative denies URI type symptoms however cannot exclude viral pneumonitis CTa negative for PE clinically does not appearto have hypervolemia and pulmonary edema given chronic intermittent steroids concern also for possible mild PJP with imaging findings, check screening LDH high at 313 and BDG pending, PJP PCR from induced aputum preferentially however she cannot cough. Sputum gram stain and cx, urine legionella ag C-ANCA given family history of Sridhar's granulomatosis echocardiogram shows normal ejection fraction of 55%, no regional wall motion abnormalities Blood cultures so far unremarkable For now we will start vancomycin, Zosyn, Levaquin -On therapeutic dose Bactrim for PJP -Solu-Medrol 60 IV daily for for possible ILD, as well as PJP, (Given desaturation with exertion ) S/P bronchoscopy: Follow :BAL: Culture and Gram stain, glucan assay, PJP PCR, Covid PCR, RSV PCR, Status: Acute (2) NATALIA (acute kidney injury): hypotensive on admission to 60s, given 2L fluid bolus with improvement. Status post IV fluids, creatinine 1.0 hold valsartan- HCTZ Given also mild hypercalcemia and NATALIA, will check SPEP for MM/MGUS Status: Acute (3) Hypotension: may be dehydration from GI fluid loses hold antihypertensives Check random cortisol elevated, TSH elevated, will start 25 mcg of levothyroxine Status: Acute Qualifiers: Hypotension type: other hypotension type Qualified Code(s): I95.89 - Other hypotension (4) Recurrent vomiting: Status: Acute (5) Seropositive rheumatoid arthritis of multiple sites: Holding off steroids for now patient stopped MTX on Sunday Status: Acute (6) Hyponatremia: may be related to dehydration vs HCTZ check urine lytes hold HCTZ recheck with am labs Stop IV fluids Status: Acute (7) Hypoxia: Status: Acute Attestations Medical Necessity Statement*: Patient is to be in hospital for management of pneumonia. Coding Level of Care Code Acute Field Interviewer for [facility] Diagnoses Ground glass opacity present on imaging of lung R91.8 NATALIA (acute kidney injury) N17.9 Hypotension I95.89 Hypotension type: other hypotension type Recurrent vomiting R11.10 Seropositive rheumatoid arthritis of multiple sites M05.79 Hyponatremia E87.1 Hypoxia R09.02
[2021-08-08] MEDS: sulfamethoxazole-trimeth DS 160-800 mg Tablet 2 TAB PO ×2 (17:36→23:26)
[2021-08-08 18:06] LABS: Potassium, Radom Urine 36 mmol/L; Urine Random Chloride 32 mmol/L; Urine Random Sodium 67 mmol/L
[2021-08-08 19:51] LABS: Add Urine Microscopic? NO; Charge for UA Resulting for Rev
[2021-08-08 19:56] LABS: Bilirubin Urine Neg (Negative); Blood Urine Neg (Negative); Glucose Urine UA Norm (Normal); Ketones Urine Negative (Negative); Leukocyte Esterase Urine Negative (Negative); Nitrate Urine Negative (Negative); Protein Urine Neg (Negative); Urine Appearance Clear (CLEAR); Urine Color Yellow (Yellow); Urobilinogen Urine Norm (Negative); pH Urine 5 (5-7)
[2021-08-09] VITALS (10 sets, daily range): BP systolic 85–116; BP diastolic 48–65; PULSE 65–79; RESP 16–21; TEMP 36.4–37.2; O2SAT 92–95
[2021-08-09] MEDS: piperacillin-tazobactam 3.375 GM in sodium chloride 0.9% (plus) 50 ML IV (01:28)
[2021-08-09] MEDS: diphenhydrAMINE 25 mg Capsule PO ×3 (03:08→20:05)
[2021-08-09] MEDS: sulfamethoxazole-trimeth DS 160-800 mg Tablet 2 TAB PO ×4 (05:16→23:14)
[2021-08-09] MEDS: folic acid 1 mg Tablet PO (05:16)
[2021-08-09] MEDS: venlafaxine ER (24HR) 150 mg Capsule 300 MG PO (05:16)
[2021-08-09] MEDS: levothyroxine 25 mcg Tablet PO (05:16)
[2021-08-09] MEDS: pantoprazole DR 40 mg Tablet PO (05:16)
[2021-08-09 06:56] LABS: NT Pro B Type Natriuretic Pept 213 pg/mL (0-125); Procalcitonin 0.12 ng/mL (0-0.5)
[2021-08-09 07:07] LABS: Creatine Phosphokinase 28 U/L (26-192)
--- NOTE | 2021-08-09 07:28 | PC.NURSE ---
I reported the low bp to the nurse. 85/48
[2021-08-09 08:22] LABS: Ferritin 255 ng/mL (15-150)
[2021-08-09 08:45] LABS: C Reactive Protein 72.6 mg/L (0.0-4.9)
[2021-08-09 09:40] LABS: Basophils % 0.2 %; Eosinophils # 1.3 10^3/uL (0.0-0.8); Eosinophils % 14.5 %; Hematocrit 29.3 % (37.0-47.0); Hemoglobin 9.4 g/dL (11.5-15.3); Lymphocytes # 1.9 10^3/uL (0.8-4.8); Lymphocytes % 21.3 %; Mean Corpuscular HGB Conc 32.1 g/dL (30.0-36.0); Mean Corpuscular Hemoglobin 31.2 pg (28.0-34.0); Mean Corpuscular Volume 97.3 fl (81-99); Monocytes # 1.1 10^3/uL (0.2-0.9); Monocytes % 12.5 %; Neutrophils # 4.35 10^3/uL (1.8-7.7); Neutrophils % 48.8 %; Nucleated Red Blood Cells % 0 %; Platelet Count 314 10^3/cmm (130-400); Red Blood Count 3.01 10^6/uL (4.1-5.3); Red Cell Distribution Width 14.4 % (12.1-15.1); White Blood Count 8.9 10^3/uL (4.0-10.0)
[2021-08-09 10:06] LABS: Slide Review Slide Review Perform
[2021-08-09] MEDS: psyllium powder Pkt 1 PACKET PO (10:14)
[2021-08-09 10:21] LABS: Alanine Aminotransferase 9 U/L (0-33); Albumin Level 2.5 g/dL (3.5-5.2); Alkaline Phosphatase 57 IU/L (35-105); Anion Gap 18.5 (5-19); Aspartate Amino Transferase 19 U/L (0-32); Blood Urea Nitrogen 13 mg/dL (8-23); Calcium 8.6 mg/dL (8.5-10.5); Carbon Dioxide 20 mmol/L (22-29); Chloride 99 mmol/L (98-107); Globulin 2.8 g/dL (1.3-4.6); Glomerular Filtration Rate 49.1 mL/min (90-130); Glucose 71 mg/dL (65-115); Osmolality Calculated 275 mOsm/kg (285-295); Potassium 4.5 mmol/L (3.5-5.1); Sodium 133 mmol/L (136-145); Total Bilirubin 0.2 mg/dL (0.15-1.2); Total Protein 5.3 g/dL (6.6-8.7)
--- NOTE | 2021-08-09 11:10 | PC.SOCIAL ---
IMM Updated Updated pt on IMM. No questions voiced. Provided pt a copy. Initialed, dated, & timed copy in chart.
[2021-08-09] MEDS: sodium chloride 0.9% 1,000 ML 30 ML IV (13:15)
--- NOTE | 2021-08-09 13:47 | P.PN_ITS ---
Subjective Subjective: Interval history: Patient was seen and examined this morning, shortness of breath is slightly improved, currently requiring 3 L supplemental oxygen, she has developed generalized erythematous rash throughout the body, likely secondary to drug reaction. Continue to remain afebrile. Medications: Reviewed: Yes Vitals/I&O/Wt Last Vital Signs Temp 98.2 F 08/09/21 10:44 Pulse 71 08/09/21 11:32 Resp 16 08/09/21 10:44 BP 101/61 08/09/21 10:44 Pulse Ox 92 08/09/21 11:32 08/08/21 08/09/21 08/09/21 22:59 06:59 14:59 Intake Total 507.5 / 2220.0 530 / 2750.0 360 / 360 Output Total 1200 / 1200 900 / 2100 Balance -692.5 / 1020.0 -370 / 650.0 360 / 360 Physical Exam Const: COMMON NORMALS: patient oriented x3 HENMT: COMMON NORMALS: normocephalic and atraumatic HEAD & SCALP: normocephalic and atraumatic Resp: COMMON NORMALS: clear to auscultation bilaterally EFFORT & INSPECTION: Yes symmetric chest movement AUSCULTATION: clear to auscultation bilaterally Cardio: COMMON NORMALS: regular rate, regular rhythm, S1 normal heart sound present, S2 normal heart sound present, No gallops present (Cardio), No murmurs present (Cardio), No rub (Cardio) and Peripheral pulses 2+ throughout RATE: regular rate RHYTHM: regular rhythm HEART SOUNDS: S1 normal heart sound present and S2 normal heart sound present PERIPHERAL PULSES: Peripheral pulses 2+ throughout GI: COMMON NORMALS: Normal to inspection, nondistended, normoactive bowel sounds present, Soft to palpation, non-tender, No hepatosplenomegaly present and no masses AUSCULTATION: Yes normoactive bowel sounds PALPATION: Yes Soft to palpation and Yes No hepatosplenomegaly present RECTAL EXAM: deferred Extremity: COMMON NORMALS: no clubbing, cyanosis or edema and no pedal edema Neuro: COMMON NORMALS: patient oriented x3 Data : 08/09/21 05:54 08/09/21 05:54 Micro: Microbiology 08/08/21 13:20 Gram Stain - Final Lung Right Middle Lobe Bronchoalveolar Lavage Culture - Preliminary 08/08/21 16:15 Legionella Urinary Antigen - Final Urine,Voided Bacterial Antigens - Final 08/04/21 15:00 Urine Culture - Final Urine,Clean Catch A&P Assessment and plan (1) Ground glass opacity present on imaging of lung: non specific GGOs present B/L in all ling gudino new requirement of 3lpm supplemental 02 -COVID-19 PCR negative denies URI type symptoms however cannot exclude viral pneumonitis CTa negative for PE clinically does not appearto have hypervolemia and pulmonary edema given chronic intermittent steroids concern also for possible mild PJP with imaging findings, check screening LDH high at 313 and BDG pending, PJP PCR from induced aputum preferentially however she cannot cough. Sputum gram stain and cx, urine legionella ag C-ANCA given family history of Sridhar's granulomatosis echocardiogram shows normal ejection fraction of 55%, no regional wall motion abnormalities Blood cultures so far unremarkable For now we will start vancomycin, Zosyn, Levaquin -On therapeutic dose Bactrim for PJP -Solu-Medrol 60 IV daily for for possible ILD, as well as PJP, (Given desaturation with exertion ) S/P bronchoscopy: Follow :BAL: Culture and Gram stain, glucan assay, PJP PCR, Covid PCR, RSV PCR, Status: Acute (2) NATALIA (acute kidney injury): hypotensive on admission to 60s, given 2L fluid bolus with improvement. Status post IV fluids, creatinine 1.0 hold valsartan- HCTZ Given also mild hypercalcemia and NATALIA, will check SPEP for MM/MGUS Status: Acute (3) Hypotension: may be dehydration from GI fluid loses hold antihypertensives Check random cortisol elevated, TSH elevated, will start 25 mcg of levothyroxine Status: Acute Qualifiers: Hypotension type: other hypotension type Qualified Code(s): I95.89 - O ther hypotension (4) Recurrent vomiting: Status: Acute (5) Seropositive rheumatoid arthritis of multiple sites: Holding off steroids for now patient stopped MTX on Sunday Status: Acute (6) Hyponatremia: may be related to dehydration vs HCTZ check urine lytes hold HCTZ recheck with am labs Stop IV fluids Status: Acute (7) Hypoxia: Status: Acute Additional A&P Information # Drug-induced rash : Patient has diffuse erythematous rash throughout the body which is itchy. Likely secondary to antibiotics, we have discontinued Vanco and Zosyn and Lovenox, will continue with Bactrim only. Continued Solu-Medrol and Benadryl will add Pepcid. Attestations Medical Necessity Statement*: Patient needs to be in hospital for management of above-defined problems. Coding Level of Care Code Acute Maintenance Aide for [facility] Diagnoses Ground glass opacity present on imaging of lung R91.8 NATALIA (acute kidney injury) N17.9 Hypotension I95.89 Hypotension type: other hypotension type Recurrent vomiting R11.10 Seropositive rheumatoid arthritis of multiple sites M05.79 Hyponatremia E87.1 Hypoxia R09.02
[2021-08-09 14:58] LABS: Vancomycin Trough 10.7 ug/mL (10-15)
[2021-08-10] MEDS: levothyroxine 25 mcg Tablet PO (05:38)
[2021-08-10] MEDS: folic acid 1 mg Tablet PO (05:38)
[2021-08-10] MEDS: venlafaxine ER (24HR) 150 mg Capsule 300 MG PO (05:38)
[2021-08-10] MEDS: pantoprazole DR 40 mg Tablet PO (05:38)
[2021-08-10] MEDS: sulfamethoxazole-trimeth DS 160-800 mg Tablet 2 TAB PO ×3 (05:38→17:31)
[2021-08-10] MEDS: diphenhydrAMINE 25 mg Capsule PO ×2 (05:41→17:31)
[2021-08-10 06:24] LABS: Basophils % 0.3 %; Eosinophils # 0.9 10^3/uL (0.0-0.8); Eosinophils % 9.3 %; Hematocrit 26.1 % (37.0-47.0); Hemoglobin 8.4 g/dL (11.5-15.3); Lymphocytes # 3.7 10^3/uL (0.8-4.8); Lymphocytes % 36.4 %; Mean Corpuscular HGB Conc 32.2 g/dL (30.0-36.0); Mean Corpuscular Hemoglobin 31.1 pg (28.0-34.0); Mean Corpuscular Volume 96.7 fl (81-99); Mean Platelet Volume 10.4 fL (7.4-10.4); Monocytes % 9.7 %; Neutrophils # 4.29 10^3/uL (1.8-7.7); Neutrophils % 42.1 %; Nucleated Red Blood Cells % 0 %; Platelet Count 318 10^3/cmm (130-400); Red Cell Distribution Width 14.5 % (12.1-15.1); White Blood Count 10.2 10^3/uL (4.0-10.0)
[2021-08-10 06:48] LABS: Alanine Aminotransferase 9 U/L (0-33); Albumin Level 2.7 g/dL (3.5-5.2); Alkaline Phosphatase 57 IU/L (35-105); Aspartate Amino Transferase 14 U/L (0-32); Blood Urea Nitrogen 16 mg/dL (8-23); Carbon Dioxide 24 mmol/L (22-29); Chloride 104 mmol/L (98-107); Globulin 2.8 g/dL (1.3-4.6); Glomerular Filtration Rate 49.1 mL/min (90-130); Glucose 88 mg/dL (65-115); Osmolality Calculated 287 mOsm/kg (285-295); Sodium 138 mmol/L (136-145); Total Bilirubin 0.2 mg/dL (0.15-1.2); Total Protein 5.5 g/dL (6.6-8.7)
[2021-08-10 06:59] LABS: Slide Review Slide Review Perform
[2021-08-10] MEDS: psyllium powder Pkt 1 PACKET PO (07:22)
[2021-08-10] MEDS: famotidine 20 mg Tablet PO ×2 (07:22→17:31)
[2021-08-10 07:31] VITALS: BP 109/61; PULSE 63; RESP 18; TEMP 36.7; O2SAT 97
[2021-08-10 11:36] VITALS: BP 99/61; PULSE 80; RESP 18; TEMP 36.8; O2SAT 95
[2021-08-10 15:22] VITALS: BP 118/68; PULSE 74; RESP 18; TEMP 36.9; O2SAT 95
[2021-08-10 15:57] LABS: ANCA Screen NEGATIVE (NEGATIVE)
--- NOTE | 2021-08-10 17:25 | PM.PN ---
Subjective Subjective: Interval history: Patient was seen and examined this morning, shortness of breath has improved, appetite has improved, generalized erythematous rash throughout the body, likely secondary to drug reaction, has not worsened, though it has not also improved. Medications: Reviewed: Yes Vitals/I&O/Wt Last Vital Signs Temp 98.4 F 08/10/21 15:22 Pulse 74 08/10/21 15:22 Resp 18 08/10/21 15:22 BP 118/68 08/10/21 15:22 Pulse Ox 95 08/10/21 15:22 08/10/21 08/10/21 08/10/21 06:59 14:59 22:59 Intake Total 480 / 1052 480 / 480 Output Total 900 / 2450 Balance -420 / -1398 480 / 480 Physical Exam Const: COMMON NORMALS: patient oriented x3 HENMT: COMMON NORMALS: normocephalic and atraumatic HEAD & SCALP: normocephalic and atraumatic Resp: COMMON NORMALS: clear to auscultation bilaterally EFFORT & INSPECTION: Yes symmetric chest movement AUSCULTATION: clear to auscultation bilaterally Cardio: COMMON NORMALS: regular rate, regular rhythm, S1 normal heart sound present, S2 normal heart sound present, No gallops present (Cardio), No murmurs present (Cardio), No rub (Cardio) and Peripheral pulses 2+ throughout RATE: regular rate RHYTHM: regular rhythm HEART SOUNDS: S1 normal heart sound present and S2 normal heart sound present PERIPHERAL PULSES: Peripheral pulses 2+ throughout GI: COMMON NORMALS: Normal to inspection, nondistended, normoactive bowel sounds present, Soft to palpation, non-tender, No hepatosplenomegaly present and no masses AUSCULTATION: Yes normoactive bowel sounds PALPATION: Yes Soft to palpation and Yes No hepatosplenomegaly present RECTAL EXAM: deferred Extremity: COMMON NORMALS: no clubbing, cyanosis or edema and no pedal edema Neuro: COMMON NORMALS: patient oriented x3 Data : 08/10/21 05:40 08/10/21 05:40 Micro: Microbiology 08/08/21 13:20 Gram Stain - Final Lung Right Middle Lobe Bronchoalveolar Lavage Culture - Final 08/04/21 18:00 Blood Culture - Final Blood NO GROWTH AFTER 5 DAYS 08/04/21 18:18 Blood Culture - Final Blood NO GROWTH AFTER 5 DAYS 08/08/21 19:25 MRSA Culture - Final Nose A&P Assessment and plan (1) Ground glass opacity present on imaging of lung: non specific GGOs present B/L in all ling gudino new 02 requirement of 3lpm supplemental 02 -COVID-19 PCR negative denies URI type symptoms however cannot exclude viral pneumonitis CTa negative for PE clinically does not appearto have hypervolemia and pulmonary edema given chronic intermittent steroids concern also for possible mild PJP with imaging findings, check screening LDH high at 313 and BDG pending, PJP PCR from induced aputum preferentially however she cannot cough. Sputum gram stain and cx, urine legionella ag C-ANCA given family history of Sridhar's granulomatosis echocardiogram shows normal ejection fraction of 55%, no regional wall motion abnormalities Blood cultures so far unremarkable For now we will start vancomycin, Zosyn, Levaquin -On therapeutic dose Bactrim for PJP -Solu-Medrol 60 IV daily for for possible ILD, as well as PJP, (Given desaturation with exertion ) S/P bronchoscopy: Follow :BAL: Culture and Gram stain, glucan assay, PJP PCR, Covid PCR, RSV PCR, Status: Acute (2) NATALIA (acute kidney injury): hypotensive on admission to 60s, given 2L fluid bolus with improvement. Status post IV fluids, creatinine 1.0 hold valsartan- HCTZ Given also mild hypercalcemia and NATALIA, will check SPEP for MM/MGUS Status: Acute (3) Hypotension: may be dehydration from GI fluid loses hold antihypertensives Check random cortisol elevated, TSH elevated, will start 25 mcg of levothyroxine Status: Acute Qualifiers: Hypotension type: other hypotension type Qualified Code(s): I95.89 - Other hypotension (4) Recurrent vomiting: Status: Acute (5) Seropositive rheumatoid arthritis of multiple sites: Holding off steroids for now patient stopped MTX on Sunday Status: Acute (6) Hyponatremia: may be related to dehydration vs HCTZ check urine lytes hold HCTZ recheck with am labs Stop IV fluids Status: Acute (7) Hypoxia: Status: Acute (8) Drug rash: Status: Acute Additional A&P Information # Drug-induced rash : Patient has diffuse erythematous rash throughout the body which is itchy. Likely secondary to antibiotics, we have discontinued Vanco and Zosyn and Lovenox, will continue with Bactrim only. Continued Solu-Medrol and Benadryl will add Pepcid. Attestations Medical Necessity Statement*: Patient needs to be in hospital for management of drug rash. 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
[2021-08-10 18:02] LABS: Fungitell 1-3-B Glucan Assay 198 pg/mL; Interpretation POSITIVE
--- NOTE | 2021-08-10 18:09 | PM.PN ---
Subjective Subjective: Interval history: -Seen patient in the morning at bedside - diffuse MP rash over the lower extremities started on 08/07/21. no oral lesions noted.does not appear to be worsening. pt was on zosyn, vancomycin, levaquin at that time. However all those antibiotics were stopped yesterday once MRSA nares and urine legionella negative. she denied having allergic reaction to pencillin. - Bactrim started for possible PCP on 08/08/21 - Today she denied any itching and reported improvement in her dyspnea; she was saturating 97% on 3L nasal cannula- recommended RT to taper down O2 - Other labs and imaging reviewed; BAL Cultures negative; but some of the tests are still pending. Medications: Reviewed: Yes Vitals/I&O/Wt Last Vital Signs Temp 98.0 F 08/10/21 07:31 Pulse 63 08/10/21 07:31 Resp 18 08/10/21 07:31 BP 109/61 08/10/21 07:31 Pulse Ox 97 08/10/21 07:31 08/09/21 08/10/21 08/10/21 22:59 06:59 14:59 Intake Total 212 / 572 480 / 1052 240 / 240 Output Total 1550 / 1550 900 / 2450 Balance -1338 / -978 -420 / -1398 240 / 240 Physical Exam Narrative: EXAM NARRATIVE: General: alert, NAD HEENT: conj clear, EOMI, PERRL, mmm, Neck: supple, no meningismus Heme: no cervical LAP Pulmonary: CTAB, no wheezing, rhonchi, crackles Cardiovascular: rrr, nl s1s2, no mrg Abdomen: soft, nt, nd, no r/g, bs+ Extremities: pulses +, no edema, no c/c : no CVA tenderness Skin: intact, diffuse MP rash on extremities; no oral lesions noted MSK: no back or neck pain Neurologic: grossly intact Data : 08/10/21 05:40 08/10/21 05:40 Other Labs: Laboratory Results WBC 10.2 10^3/uL (4.0-10.0) H 08/10/21 05:40 RBC 2.70 10^6/uL (4.1-5.3) L 08/10/21 05:40 Hgb 8.4 g/dL (11.5-15.3) L 08/10/21 05:40 Hct 26.1 % (37.0-47.0) L 08/10/21 05:40 MCV 96.7 fl (81-99) 08/10/21 05:40 MCH 31.1 pg (28.0-34.0) 08/10/21 05:40 MCHC 32.2 g/dL (30.0-36.0) 08/10/21 05:40 RDW 14.5 % (12.1-15.1) 08/10/21 05:40 Plt Count 318 10^3/cmm (130-400) 08/10/21 05:40 MPV 10.4 fL (7.4-10.4) 08/10/21 05:40 Neut % (Auto) 42.1 % 08/10/21 05:40 Lymph % (Auto) 36.4 % 08/10/21 05:40 Hendry % (Auto) 9.7 % 08/10/21 05:40 Eos % (Auto) 9.3 % 08/10/21 05:40 Baso % (Auto) 0.3 % 08/10/21 05:40 Neut # (Auto) 4.29 10^3/uL (1.8-7.7) 08/10/21 05:40 Lymph # (Auto) 3.7 10^3/uL (0.8-4.8) 08/10/21 05:40 Hendry # (Auto) 1.0 10^3/uL (0.2-0.9) H 08/10/21 05:40 Eos # (Auto) 0.9 10^3/uL (0.0-0.8) H 08/10/21 05:40 Baso # (Auto) 0.0 10^3/uL (0.0-0.1) 08/10/21 05:40 Nucleated RBC % (auto) 0 % 08/10/21 05:40 Total Counted 100 (0-100) 08/04/21 16:43 Atypical Lymphs % 3.0 % (0-5) 08/04/21 16:43 Absolute Neutrophils 7.4 10^3/cmm (1.4-6.5) H 08/04/21 16:43 Segmented Neutrophils 49 % 08/04/21 16:43 Abs Segm Neuts (Man) 5.7 10/cmm (1.6-7.1) 08/04/21 16:43 Band Neutrophils 14.0 % 08/04/21 16:43 Abs Band Neuts (Man) 1.6 10^3/cmm (0.0-1.2) H 08/04/21 16:43 Absolute Lymphocytes 2.7 10^3/cmm (1.2-3.4) 08/04/21 16:43 Lymphocytes (Manual) 20 % 08/04/21 16:43 Monocytes (Manual) 8.0 % 08/04/21 16:43 Absolute Monocytes 0.9 10^3/cmm (0.1-0.6) H 08/04/21 16:43 Eosinophils (Manual) 5 % 08/04/21 16:43 Absolute Eosinophils 0.5 10^3/cmm (0.0-0.7) 08/04/21 16:43 Basophils (Manual) 0.0 % 08/04/21 16:43 Absolute Basophils 0.0 10^3/cmm (0.0-0.2) 08/04/21 16:43 Metamyelocytes 1.0 % 08/04/21 16:43 Nucleated RBCs # 0.0 /100WBC 08/10/21 05:40 Platelet Estimate Normal (Normal) 08/04/21 16:43 PT 15.30 SECONDS (12.1-14.9) H 08/04/21 16:43 INR 1.17 (0.8-1.2) 08/04/21 16:43 D-Dimer 1.91 ug/mIFEU (0-0.59) H 08/04/21 16:43 Specimen Type Arterial 08/08/21 10:00 Sample Site Radial, right 08/08/21 10:00 ABG pH 7.47 (7.35-7.45) H 08/08/21 10:00 ABG pCO2 33.9 mmHg (35-45) L 08/08/21 10:00 ABG pO2 70.8 mmHg (80.0-100.0) L 08/08/21 10:00 ABG HCO3 24.7 mmol/L (22-26) 08/08/21 10:00 ABG O2 Saturation 95.8 08/08/21 10:00 ABG Base Excess 1.2 mmol/L (-2.0-2.0) 08/08/21 10:00 Jose Test Pos 08/08/21 10:00 VBG pH 7.35 (7.32-7.42) 08/04/21 18:18 VBG pCO2 44.2 mmHg (41-51) 08/04/21 18:18 VBG pO2 29.8 mmHg (25-40) 08/04/21 18:18 VBG HCO3 24.6 mmol/L (24-28) 08/04/21 18:18 VBG Base Excess -1.0 mmol/L (-3.0-3.0) 08/04/21 18:18 VBG Hematocrit 30.8 % (37-47) L 08/04/21 18:18 A-a O2 Gradient 15.2 mmHg (5-10) H 08/08/21 10:00 Hematocrit 29.6 % (37-47) L 08/08/21 10:00 Hgb O2 Saturation 94.1 % (95-100) L 08/08/21 10:00 Carboxyhemoglobin 1.0 %THgb (0.4-20.1) 08/08/21 10:00 Methemoglobin 0.8 % (0.4-1.5) 08/08/21 10:00 Total Hemoglobin 9.7 g/dL (12-16) L 08/08/21 10:00 Sodium 133.0 mmol/L (131-143) 08/08/21 10:00 Potassium 4.0 mmol/L (3.5-5.0) 08/08/21 10:00 Glucose 88.0 mg/dL (70-115) 08/08/21 10:00 Ionized Calcium 1.3 mmol/L (1.1-1.4) 08/08/21 10:00 O2 Delivery Device Nc 08/08/21 10:00 O2 Liters/Min 3.0 % 08/08/21 10:00 FiO2 32.0 % 08/08/21 10:00 Set Up [employer] ID Luz 08/08/21 10:00 Sodium 138 mmol/L (136-145) 08/10/21 05:40 Potassium 4.0 mmol/L (3.5-5.1) 08/10/21 05:40 Chloride 104 mmol/L (98-107) 08/10/21 05:40 Carbon Dioxide 24 mmol/L (22-29) 08/10/21 05:40 Anion Gap 14.0 (5-19) 08/10/21 05:40 BUN 16 mg/dL (8-23) 08/10/21 05:40 Creatinine 1.1 mg/dL (0.5-0.9) H 08/10/21 05:40 GFR Calculation 49.1 mL/min (90-130) L 08/10/21 05:40 Glucose 88 mg/dL (65-115) 08/10/21 05:40 Calculated Osmolality 287 mOsm/kg (285-295) 08/10/21 05:40 Lactic Acid 1.3 mmol/L (0.5-2.2) 08/04/21 16:43 Calcium 9.0 mg/dL (8.5-10.5) 08/10/21 05:40 Phosphorus 3.3 mg/dL (2.5-4.5) 08/08/21 03:03 Magnesium 1.8 mg/dL (1.7-2.3) 08/08/21 03:03 Ferritin 255 ng/mL (15-150) H 08/09/21 05:54 Total Bilirubin 0.2 mg/dL (0.15-1.2) 08/10/21 05:40 AST 14 U/L (0-32) 08/10/21 05:40 ALT 9 U/L (0-33) 08/10/21 05:40 Alkaline Phosphatase 57 IU/L (35-105) 08/10/21 05:40 Lactate Dehydrogenase 313 U/L (135-214) H 08/04/21 16:43 Creatine Kinase 28 U/L (26-192) 08/09/21 05:54 C-Reactive Protein 72.6 mg/L (0.0-4.9) H 08/09/21 05:54 NT-Pro-B Natriuret Pep 213 pg/mL (0-125) H 08/09/21 05:54 Total Protein 5.5 g/dL (6.6-8.7) L 08/10/21 05:40 Albumin 2.7 g/dL (3.5-5.2) L 08/10/21 05:40 Globulin 2.8 g/dL (1.3-4.6) 08/10/21 05:40 Pbqbl-5-Pmnlshgrp 0.5 g/dL (0.2-0.3) H 08/04/21 04:56 Haapd-9-Srmszhybn 1.0 g/dL (0.5-0.9) H 08/04/21 04:56 Oiut-4-Mmofiamz 0.3 g/dL (0.4-0.6) L 08/04/21 04:56 Wnwr-5-Tgxvatpk 0.3 g/dL (0.2-0.5) 08/04/21 04:56 Gamma Globulins 0.5 g/dL (0.8-1.7) L 08/04/21 04:56 Abnorm Protein Band 1 Not Reportable 08/04/21 04:56 Procalcitonin 0.12 ng/mL (0-0.5) 08/09/21 05:54 TSH 15.44 uIU/mL (0.27-4.20) H 08/04/21 16:43 Random Cortisol 26.29 ug/dL (2.47-19.5) H 08/04/21 16:43 Urine Color Yellow (Yellow) 08/08/21 19:25 Urine Appearance Clear (CLEAR) 08/08/21 19:25 Urine pH 5 (5-7) 08/08/21 19:25 Ur Specific [place] 1.020 (1.005-1.030) 08/08/21 19:25 Urine Protein Neg (Negative) 08/08/21 19:25 Urine Glucose (UA) Norm (Normal) 08/08/21 19:25 Urine Ketones Negative (Negative) 08/08/21 19:25 Urine Blood Neg (Negative) 08/08/21 19:25 Urine Nitrate Negative (Negative) 08/08/21 19:25 Urine Bilirubin Neg (Negative) 08/08/21 19:25 Urine Urobilinogen Norm mg/dL (Negative) 08/08/21 19:25 Ur Leukocyte Esterase Negative (Negative) 08/08/21 19:25 Ur Random Sodium 67 mmol/L 08/08/21 16:15 Ur Random Potassium 36 mmol/L 08/08/21 16:15 Ur Random Chloride 32 mmol/L 08/08/21 16:15 U Abnormal Prot Band 2 Not Reportable 08/04/21 04:56 U Abnormal Prot Band 3 Not Reportable 08/04/21 04:56 Vancomycin Trough 10.7 ug/mL (10-15) 08/09/21 14:04 Pro Electrophoresis Int See note 08/04/21 04:56 SARA IFA Animal Tis Res Negative (NEGATIVE) 08/05/21 14:17 ANCA Screen Negative (NEGATIVE) 08/05/21 14:17 ANCA Titer Not Reportable 08/05/21 14:17 HIMANSHU-1 Antibody <1.0 neg AI (<1.0 NEG) 08/05/21 14:17 SS-A Antibody <1.0 neg AI (<1.0 NEG) 08/05/21 14:17 SS-B Antibody <1.0 neg AI (<1.0 NEG) 08/05/21 14:17 Sm (Desir) Antibody <1.0 neg AI (<1.0 NEG) 08/05/21 14:17 [employer] Antibody <1.0 neg AI (<1.0 NEG) 08/05/21 14:17 Scl-70 Antibody <1.0 neg AI (<1.0 NEG) 08/05/21 14:17 Centromere B Antibody <1.0 neg AI (<1.0 NEG) 08/05/21 14:17 Thyroid Peroxidase Ab 36 IU/mL (<9) H 08/05/21 14:17 Complement C3c 133 mg/dL (83-193) 08/05/21 14:17 Complement C4c 21 mg/dL (15-57) 08/05/21 14:17 CH50 Classical Pathway >60 U/mL (31-60) H 08/05/21 14:17 Nasal/Oral COVID-19 PCR Not detected 08/04/21 23:00 Hepatitis A IgM Ab Non-reactive (Nonreactive) 08/05/21 14:17 Hep Bs Antigen Non-reactive (Nonreactive) 08/05/21 14:17 Hep B Core IgM Ab Non-reactive (Nonreactive) 08/05/21 14:17 Hepatitis C Antibody Non-reactive (Nonreactive) 08/05/21 14:17 HIV 1&2 Ab & HIV 1 Ag Non-reactive (Non-Reactiv) 08/05/21 14:17 HIV 1&2 Antibody Non-reactive (Non-Reactiv) 08/05/21 14:17 Influenza Type A Ag Negative (Negative) 08/04/21 23:00 Influenza Type B Ag Negative (Negative) 08/04/21 23:00 SARS-CoV-2 Ag (Rapid) Negative (Negative) 08/04/21 19:43 Beta-(1,3)-D-Glucan TNP 08/08/21 13:20 B-(1,3)-D-Glucan Intrp Not Reportable 08/08/21 13:20 Blood Type A Negative 08/04/21 16:43 Rho(D) Type Negative 08/04/21 16:43 Antibody Screen Negative 08/04/21 16:43 Impressions Chest X-Ray 08/04/21 15:17 IMPRESSION: 1. Mild interstitial groundglass infiltrate in the mid left lung suspicious for pneumonia Chest/Abdomen/Pelvis CT 08/04/21 16:46 IMPRESSION: 1. Negative for focal acute inflammatory process in the abdomen or pelvis. 2. Right kidney cyst, negative for follow-up advised. 3. Cystic lesion adjacent to the posterior aspect of the gallbladder measuring 3.6 cm in with suggestion of a small enhancing mural nodule on series 3, image 29, appears to be arising from the liver, similar to prior exam, consider further evaluation with a MRI given small enhancing nodule. 4. Right kidney cysts, negative for follow-up advised. 5. Diverticulosis without diverticulitis. Radiation Dose CTDIVOL = (mGy): DLP = 1377.28~1377.28 (mGy-cm) Micro: Microbiology 08/04/21 18:00 Blood Culture - Final Blood NO GROWTH AFTER 5 DAYS 08/04/21 18:18 Blood Culture - Final Blood NO GROWTH AFTER 5 DAYS 08/08/21 19:25 MRSA Culture - Final Nose 08/08/21 13:20 Gram Stain - Final Lung Right Middle Lobe Bronchoalveolar Lavage Culture - Preliminary 08/08/21 16:15 Legionella Urinary Antigen - Final Urine,Voided Bacterial Antigens - Final A&P Assessment and plan (1) Acute respiratory failure with hypoxia: Status: Acute (2) NATALIA (acute kidney injury): Status: Acute (3) Shortness of breath: Status: Chronic (4) History of polymyalgia rheumatica: Status: Acute (5) Seropositive rheumatoid arthritis of multiple sites: Status: Acute (6) High risk medication use: Status: Acute (7) Immunosuppression-related infectious disease: Status: Acute (8) Rash: Status: Acute #Dyspnea secondary to acute hypoxia requiring 3 L oxygen in patient with underlying seropositive rheumatoid arthritis on immunosuppressive medications #Patient was methotrexate until 1 week prior to admission #Chronic intermittent use of [id number] course once in every 2 to 3 months #Previous COVID-19 infection April 2020-unvaccinated #At risk for infectious diseases like PCP given her immunosuppression #Reported family history of Sridhar's granulomatosis #Bilateral patchy diffuse GGO's on CT chest-viral pneumonitis/PCP/exacerbation of ? RA-ILD /aspiration pneumonitis due persistent nausea/vomitings for several days prior to admission--- - diffuse MP rash over the lower extremities started on 08/07/21. no oral lesions noted.does not appear to be worsening. pt was on zosyn, vancomycin, levaquin at that time. However all those antibiotics were stopped yesterday once MRSA nares and urine legionella negative. she denied having allergic reaction to pencillin. - Bactrim was started after she developed rash (less likely culprit) for possible PCP on 08/08/21 - Today she denied any itching and reported improvement in her dyspnea; she was saturating 97% on 3L nasal cannula- recommended RT to taper down O2 -Also patient underwent bronchoscopy 08/08/21-which showed copious clear secretions bilaterally with normal mucosa and no endobronchial lesions - BAL from RML - Cultures negative; but some of the tests are still pending. Post procedure specifically requested lab to send for Covid PCR, respiratory viral panel, fungal cultures, beta D glucan assay, PCP PCR and staining from BAL - results pending -MRSA nares urine Legionella antigen, Bacterial antigens, Blood cultures, urine cultures were negative, Flu antigen, Covid rapid antigen and PCR negative. -LDH 313, CRP 72, BNP 160; -Echo 08/05/2021 reported normal LV size and systolic function with EF 55% with no regional wall motion abnormalities. Minimally thickened AV and trace MVR. -Low procalcitonin 0.12. Discontinued vancomycin, Zosyn and levofloxacin - UA negative for proteinuria, ANCA screen negative -Recommended PO prednisone 40 mg daily (0.5 mg/kg/day) for ? NSIP pattern on her CT chest for atleast 2 weeks -Oxygen supplementation to keep saturations > 90% and supportive care for possible underlying viral pneumonitis untill results available -Based on PF ratio (219) and A-a gradient 15-patient has mild ARDS and given her history of immunosuppression-recommended to give atovaquone and treat as mild PCP until results are available -Follow-up BAL cultures, PCP PCR, Covid PCR, viral panel, urine Legionella, Respiratory viral panel -I am signing off the case as from Pulmonary standpoint patient is stable and requiring 2-3 liters O2 on nasal cannula and reported subjective improvement in her dyspnea; I will follow up in pulmonary clinic preferably within 1 week after hospital discharge. Upon discharge, I recommend to give PO Prednisone 40 mg X total 2 weeks and Atovaquone or alternative for mild PCP - until PCP PCR results are back. She needs home O2 evalution on discharge. -Please reconsult if necessary Medical condition, related medications, treatment plan, possible complications-everything explained in detail to the patient. She verbalized understanding and agreed with the plan. Recommendations conveyed to hospitalist taking care of the patient Attestations Medical Necessity Statement*: deferred to hospitalist Coding Level of Care Code Established Pt Acute Roll Tension Tester for Chg Fwd Patient Type Established History Comprehensive Exam Comprehensive Medical Decision Making Moderate Complexity Diagnoses Acute respiratory failure with hypoxia J96.01 NATALIA (acute kidney injury) N17.9 Shortness of breath R06.02 History of polymyalgia rheumatica Z87.39 Seropositive rheumatoid arthritis of multiple sites M05.79 High risk medication use Z79.899 Immunosuppression-related infectious disease B99.8; D84.9 Rash R21 Time Spent (min) 20
[2021-08-10 19:05] VITALS: BP 125/75; PULSE 71; RESP 17; TEMP 36.9; O2SAT 97
[2021-08-11] VITALS: BP 106/62; PULSE 69; RESP 18; TEMP 37; O2SAT 97
[2021-08-11] MEDS: sulfamethoxazole-trimeth DS 160-800 mg Tablet 2 TAB PO ×5 (02:42→23:17)
[2021-08-11 04:00] VITALS: BP 95/49; PULSE 60; RESP 18; TEMP 36.4; O2SAT 99
[2021-08-11] MEDS: diphenhydrAMINE 25 mg Capsule PO (06:35)
[2021-08-11] MEDS: venlafaxine ER (24HR) 150 mg Capsule 300 MG PO (06:36)
[2021-08-11] MEDS: levothyroxine 25 mcg Tablet PO (06:36)
[2021-08-11] MEDS: pantoprazole DR 40 mg Tablet PO (06:36)
[2021-08-11] MEDS: folic acid 1 mg Tablet PO (06:36)
[2021-08-11 06:40] LABS: Alanine Aminotransferase 9 U/L (0-33); Albumin Level 2.8 g/dL (3.5-5.2); Alkaline Phosphatase 51 IU/L (35-105); Blood Urea Nitrogen 19 mg/dL (8-23); Calcium 8.8 mg/dL (8.5-10.5); Carbon Dioxide 17 mmol/L (22-29); Chloride 102 mmol/L (98-107); Globulin 2.7 g/dL (1.3-4.6); Glomerular Filtration Rate 49.1 mL/min (90-130); Glucose 75 mg/dL (65-115); Osmolality Calculated 275 mOsm/kg (285-295); Sodium 132 mmol/L (136-145); Total Bilirubin 0.2 mg/dL (0.15-1.2); Total Protein 5.5 g/dL (6.6-8.7)
--- NOTE | 2021-08-11 06:50 | PC.SOCIAL ---
IMM Update Pg. 2 of IMM updated. Initialed, dated, and timed. Copy provided to patient.
[2021-08-11 06:58] LABS: Anion Gap 17.8 (5-19); Potassium 4.8 mmol/L (3.5-5.1)
[2021-08-11 06:59] LABS: Aspartate Amino Transferase 19 U/L (0-32)
[2021-08-11 07:20] VITALS: BP 94/49; PULSE 56; RESP 17; TEMP 36.4; O2SAT 98
[2021-08-11] MEDS: psyllium powder Pkt 1 PACKET PO (08:57)
[2021-08-11] MEDS: famotidine 20 mg Tablet PO ×2 (08:57→17:15)
[2021-08-11 09:16] LABS: Hematocrit 28.3 % (37.0-47.0); Hemoglobin 8.9 g/dL (11.5-15.3); Mean Corpuscular HGB Conc 31.4 g/dL (30.0-36.0); Mean Corpuscular Hemoglobin 30.6 pg (28.0-34.0); Mean Corpuscular Volume 97.3 fl (81-99); Mean Platelet Volume 9.9 fL (7.4-10.4); Platelet Count 358 10^3/cmm (130-400); Red Blood Count 2.91 10^6/uL (4.1-5.3); Red Cell Distribution Width 14.7 % (12.1-15.1); White Blood Count 14.1 10^3/uL (4.0-10.0)
[2021-08-11 09:36] LABS: Slide Review Slide Review Perform
[2021-08-11 09:39] LABS: Absolute Eosinophils 0.7 10^3/cmm (0.0-0.7); Absolute Segmented Neutrophil 7.2 10/cmm (1.6-7.1); Band Neutrophils Absolute 0.3 10^3/cmm (0.0-1.2); Eosinophils 5 %; Lymphocytes 31 %; Lymphocytes Absolute 5.1 10^3/cmm (1.2-3.4); Monocytes Absolute 0.6 10^3/cmm (0.1-0.6); Segmented Neutrophils 51 %; Total Cells Counted 100 (0-100)
[2021-08-11 09:41] LABS: Absolute Neutrophil 7.5 10^3/cmm (1.4-6.5); Platelet Estimate Normal (Normal)
[2021-08-11 11:26] VITALS: BP 106/47; PULSE 66; RESP 16; TEMP 36.8; O2SAT 98
--- NOTE | 2021-08-11 13:23 | P.PN_ITS ---
Subjective Subjective: Interval history: Patient was seen and examined this morning, resting comfortably today, though she continue to complain of itching mostly bad at night,other then that she deny any other complain. Rash has not spread, currently it is coleasing and likely in the resolution p hase. Medications: Reviewed: Yes Vitals/I&O/Wt Last Vital Signs Temp 98.2 F 08/11/21 11:26 Pulse 66 08/11/21 11:26 Resp 16 08/11/21 11:26 BP 106/47 08/11/21 11:26 Pulse Ox 98 08/11/21 11:26 08/10/21 08/11/21 08/11/21 22:59 06:59 14:59 Intake Total 360 / 360 Output Total 900 / 900 Balance -900 / -420 360 / 360 Physical Exam Const: COMMON NORMALS: patient oriented x3 HENMT: COMMON NORMALS: normocephalic and atraumatic HEAD & SCALP: normocephalic and atraumatic Resp: COMMON NORMALS: clear to auscultation bilaterally EFFORT & INSPECTI ON: Yes symmetric chest movement AUSCULTATION: clear to auscultation bilaterally Cardio: COMMON NORMALS: regular rate, regular rhythm, S1 normal heart sound present, S2 normal heart sound present, No gallops present (Cardio), No murmurs present (Cardio), No rub (Cardio) and Peripheral pulses 2+ throughout RATE: regular rate RHYTHM: regular rhythm HEART SOUNDS: S1 normal heart sound present and S2 normal heart sound present PERIPHERAL PULSES: Peripheral pulses 2+ throughout GI: COMMON NORMALS: Normal to inspection, nondistended, normoactive bowel sounds present, Soft to palpation, non-tender, No hepatosplenomegaly present and no masses AUSCULTATION: Yes normoactive bowel sounds PALPATION: Yes Soft to palpation and Yes No hepatosplenomegaly present RECTAL EXAM: deferred Extremity: COMMON NORMALS: no clubbing, cyanosis or edema and no pedal edema Neuro: COMMON NORMALS: patient oriented x3 Data : 08/11/21 08:52 08/11/21 05:36 Micro: Microbiology 08/08/21 13:20 Fungal Smear - Preliminary Sputum - Endotracheal Wash Mycobacterial Smear - Preliminary 08/08/21 13:20 Gram Stain - Final Lung Right Middle Lobe Bronchoalveolar Lavage Culture - Final A&P Assessment and plan (1) Ground glass opacity present on imaging of lung: non specific GGOs present B/L in all ling gudino new 02 requirement of 3lpm supplemental 02 -COVID-19 PCR negative denies URI type symptoms however cannot exclude viral pneumonitis CTa negative for PE clinically does not appearto have hypervolemia and pulmonary edema given chronic intermittent steroids concern also for possible mild PJP with imaging findings, check screening LDH high at 313 and BDG pending, PJP PCR from induced aputum preferentially however she cannot cough. Sputum gram stain and cx, urine legionella ag C-ANCA given family history of Sridhar's granulomatosis echocardiogram shows normal ejection fraction of 55%, no regional wall motion abnormalities Blood cultures so far unremarkable For now we will start vancomycin, Zosyn, Levaquin -On therapeutic dose Bactrim for PJP -Solu-Medrol 60 IV daily for for possible ILD, as well as PJP, (Given desaturation with exertion ) S/P bronchoscopy: Follow :BAL: Culture and Gram stain, glucan assay, PJP PCR, Covid PCR, RSV PCR, Status: Acute (2) NATALIA (acute kidney injury): hypotensive on admission to 60s, given 2L fluid bolus with improvement. Status post IV fluids, creatinine 1.0 hold valsartan- HCTZ Given also mild hypercalcemia and NATALIA, will check SPEP for MM/MGUS Status: Acute (3) Hypotension: may be dehydration from GI fluid loses hold antihypertensives Check random cortisol elevated, TSH elevated, will start 25 mcg of levothyroxine Status: Acute Qualifiers: Hypotension type: other hypotension type Qualified Code(s): I95.89 - Other hypotension (4) Recurrent vomiting: Status: Acute (5) Seropositive rheumatoid arthritis of multiple sites: Holding off steroids for now patient stopped MTX on Sunday Status: Acute (6) Hyponatremia: may be related to dehydration vs HCTZ check urine lytes hold HCTZ recheck with am labs Stop IV fluids Status: Acute (7) Hypoxia: Status: Acute (8) Drug rash: Status: Acute Additional A&P Information # Drug-induced rash : Patient has diffuse erythematous rash throughout the body which is itchy. Likely secondary to antibiotics, we have discontinued Vanco and Zosyn and Lovenox, will continue with Bactrim only. Continued Solu-Medrol and Benadryl will add Pepcid. Attestations Medical Necessity Statement*: Patient is in hospital for monitoring of drug rash. Coding Level of Care Code Acute Circuit Court Clerk for g Fwd Exam Detailed Diagnoses Ground glass opacity present on imaging of lung R91.8 NATALIA (acute kidney injury) N17.9 Hypotension I95.89 Hypotension type: other hypotension type Recurrent vomiting R11.10 Seropositive rheumatoid arthritis of multiple sites M05.79 Hyponatremia E87.1 Hypoxia R09.02 Drug rash L27.0
[2021-08-11 15:24] VITALS: BP 111/52; PULSE 74; RESP 16; TEMP 36.8; O2SAT 93
[2021-08-11 20:00] VITALS: BP 143/78; PULSE 87; RESP 18; TEMP 36.7; O2SAT 96
[2021-08-11] MEDS: diphenhydrAMINE 50 mg/mL SDV 1mL 12.5 MG IVP (21:15)
[2021-08-12] VITALS: BP 138/74; PULSE 68; RESP 17; TEMP 36.6; O2SAT 95
[2021-08-12 04:00] VITALS: BP 140/75; PULSE 69; RESP 17; TEMP 36.7; O2SAT 96
[2021-08-12 05:06] LABS: Basophils # 0.1 10^3/uL (0.0-0.1); Basophils % 0.4 %; Eosinophils # 0.3 10^3/uL (0.0-0.8); Eosinophils % 2.2 %; Hematocrit 25.8 % (37.0-47.0); Hemoglobin 8.3 g/dL (11.5-15.3); Lymphocytes % 41.6 %; Mean Corpuscular HGB Conc 32.2 g/dL (30.0-36.0); Mean Corpuscular Hemoglobin 31.1 pg (28.0-34.0); Mean Corpuscular Volume 96.6 fl (81-99); Mean Platelet Volume 10.5 fL (7.4-10.4); Monocytes # 1.2 10^3/uL (0.2-0.9); Monocytes % 8.1 %; Neutrophils # 6.58 10^3/uL (1.8-7.7); Neutrophils % 45.8 %; Nucleated Red Blood Cells % 0 %; Platelet Count 307 10^3/cmm (130-400); Red Blood Count 2.67 10^6/uL (4.1-5.3); Red Cell Distribution Width 14.8 % (12.1-15.1); White Blood Count 14.4 10^3/uL (4.0-10.0)
[2021-08-12 05:35] LABS: Alanine Aminotransferase 13 U/L (0-33); Albumin Level 3.2 g/dL (3.5-5.2); Alkaline Phosphatase 56 IU/L (35-105); Aspartate Amino Transferase 18 U/L (0-32); Blood Urea Nitrogen 21 mg/dL (8-23); Carbon Dioxide 22 mmol/L (22-29); Chloride 100 mmol/L (98-107); Globulin 2.8 g/dL (1.3-4.6); Glomerular Filtration Rate 44.4 mL/min (90-130); Glucose 84 mg/dL (65-115); Osmolality Calculated 282 mOsm/kg (285-295); Sodium 135 mmol/L (136-145); Total Bilirubin 0.2 mg/dL (0.15-1.2)
[2021-08-12 05:36] LABS: Anion Gap 17.7 (5-19); Potassium 4.7 mmol/L (3.5-5.1)
[2021-08-12] MEDS: sulfamethoxazole-trimeth DS 160-800 mg Tablet 2 TAB PO ×2 (05:46→11:04)
[2021-08-12] MEDS: venlafaxine ER (24HR) 150 mg Capsule 300 MG PO (05:46)
[2021-08-12] MEDS: pantoprazole DR 40 mg Tablet PO (05:47)
[2021-08-12] MEDS: levothyroxine 25 mcg Tablet PO (05:47)
[2021-08-12] MEDS: folic acid 1 mg Tablet PO (05:47)
[2021-08-12 06:03] LABS: P. Jirovecii DNA QL PCR NOT DETECTED; Pneumocystis Jirovecii DNA PCR NO DNA DETECTED copies/mL
[2021-08-12 06:08] LABS: Slide Review Slide Review Perform
[2021-08-12 07:08] VITALS: BP 103/58; PULSE 69; RESP 17; TEMP 36.6; O2SAT 98
[2021-08-12] MEDS: psyllium powder Pkt 1 PACKET PO (08:54)
[2021-08-12] MEDS: famotidine 20 mg Tablet PO (08:54)
[2021-08-12] MEDS: diphenhydrAMINE 50 mg/mL SDV 1mL 12.5 MG IVP (11:05)
[2021-08-12 11:09] VITALS: BP 116/56; PULSE 69; RESP 16; TEMP 36.7; O2SAT 98
[2021-08-12 12:43] VITALS: O2SAT 91
--- NOTE | 2021-08-12 12:53 | PC.NURSE ---
Patient was discharged at 1250. Patient left unit floor via wheelchair accompanied by nursing staff. All personal belongings were sent with patient. Patient leaving hospital via private vehicle. IV discontinued.
[2021-08-12 15:07] LABS: DNA AB (DS) CRITHIDIA,IFA NEGATIVE (NEGATIVE)
--- NOTE | 2021-08-15 22:02 | P.DS_ITS ---
Discharge Providers Date of Admission: 08/04/21 20:12 Date of Discharge: August 12, 2021 Attending Provider at Admission: Dacia Evans MD Attending Provider at Discharge: To Harris MD Primary Care Provider: Beto Hoffmann MD Diagnoses at Discharge Discharge Diagnosis (1) Ground glass opacity present on imaging of lung: Status: Acute (2) NATALIA (acute kidney injury): Status: Acute (3) Hypotension: Status: Acute Qualifiers: Hypotension type: other hypotension type Qualified Code(s): I95.89 - Other hypotension (4) Recurrent vomiting: Status: Acute (5) Seropositive rheumatoid arthritis of multiple sites: Status: Acute (6) Hyponatremia: Status: Acute (7) Hypoxia: Status: Acute (8) Drug rash: Status: Acute Reason for Visit Reason for Visit: SOB Hospital Course Hospital Course 70 year old female with h/o RA on MTX and intermittent prn steroids, reports frequency to be once every 2-3 months, takes 10 days at a time. Presenting today with worsening shortness of breath over the past 4-6 weeks. Does not recall any preceeding URi symptoms or acute events priro to onset. Has noticed increased dyspnea on exertion over this time frame, now feeling SOB with less than usual activity. Dry cough+. No expectoration or hemoptysis. no chest pain, palpitations, syncope. No LE edema. No orthopnea. No known cardiac history. No fever. No past h/o COPD. reports seasonal asthma but has not needed inhalers in 10 years. h/o COVID 04/2020. Currently unvaccinated for covid 19. influenza vaccination taken.During this hospital stay she was managed for LAN likely 2/[address] chest: Bilateral patchy diffuse GGO's on.Differential diagnosis of GGO is b road including and not limited to viral pneumonitis/PCP/exacerbation. Patient is also at risk for rheumatoid lung disease.Possibility of aspiration pna can also be ruled out as patient was having nausea and vomiting prior to admission. Patient was kept on broad spectrum abxs, COVID PCR was negative, MRSA PCR was negative, urine legionella as well as bacterial antigen panel was negative, blood culture was negative, she also underwent bronchoscopy during this hospital stay,results of BAL culture no growth, BAL fungal and mycobacterail was prelim result NTD.She was also managed for possible pjp pna and was kept on po bactrim for 7 days, she was on steroids during the hospital stay as well as discharged on po prednisone to complete 10 days course.BAL PJP results is pending. ANCA screen negative.Hospital course was also complicated by the development of Drug induced rash erythematous rash which was itchy, ,likely 2/2 Abxs ( she was on van,zosyn as well as levofloxacin ) abxs were discontinued.She was kept on pepcid,bendryl as well as steroids to which she responded well, rash was improving at the time of discharge, she was advised to follow dermatology as outpatient in a week time.she was also managed for pre renal NATALIA responded well to I.V Hydration, serum cretinine was slightly trending up on discharge likey 2/2 to bactrim use, she has been asked to do repeat BMP in a week and follow with her pcp, her scr at the time of discharge was 1.2. given the fact that she also had mild hypercalcemia and NATALIA, on admission SPEP for MM/MGUS was ordered. valsartan- HCTZ has been continued to be held on discharge. She was also started on levothroxine 25 mcg po daily for new diagnosis of hypothyroidism.She will follow with hep cp with repaet TFT in 4-6 weeks for dose readjustment. for the incidental findings on CT angio chest w abd pel w con of Cystic lesion adjacent to the posterior aspect of the gallbladder measuring 3.6 cm in with suggestion of a small enhancing mural nodule on series 3, image 29, appears to be arising from the liver, similar to prior exam, consider further evaluation with a MRI given small enhancing nodule.She will follow oncology as outpatient. 2D Echo done during the hospital stay Normal left ventricular size and systolic function, EF 55 %. No regional wall motion abnormalities. Minimally thickened aortic valve Trace mitral valve regurgitation. There is no pericardial effusion. Patient responded well to above medical management and is being discharge in stable condition to home.She will follow her pcp as well as as outpatient. Physical Exam Const: COMMON NORMALS: patient oriented x3 HENMT: COMMON NORMALS: normocephalic and atraumatic HEAD & SCALP: normocephalic and atraumatic Resp: COMMON NORMALS: clear to auscultation bilaterally EFFORT & INSPECTION: Yes symmetric chest movement AUSCULTATION: clear to auscultation bilaterally Cardio: COMMON NORMALS: regular rate, regular rhythm, S1 normal heart sound present, S2 normal heart sound present, No gallops present (Cardio), No murmurs present (Cardio), No rub (Cardio) and Peripheral pulses 2+ throughout RATE: regular rate RHYTHM: regular rhythm HEART SOUNDS: S1 normal heart sound present and S2 normal heart sound present PERIPHERAL PULSES: Peripheral pulses 2+ throughout GI: COMMON NORMALS: Normal to inspection, nondistended, normoactive bowel sounds present, Soft to palpation, non-tender, No hepatosplenomegaly present and no masses AUSCULTATION: Yes normoactive bowel sounds PALPATION: Yes Soft to palpation and Yes No hepatosplenomegaly present RECTAL EXAM: deferred Extremity: COMMON NORMALS: no clubbing, cyanosis or edema and no pedal edema Neuro: COMMON NORMALS: patient oriented x3 Discharge Data Data Completed and Pending: Completed Studies During Hospitalization Category Date Time Status CT angio chest w abd pel w con Urge nt Cat Scan 08/04/21 16:46 Completed XR chest 1V anabella ble [id number] Stat Exams 08/04/21 15:17 Completed CV. echo complete * [id number] Routine Ultrasound 08/05/21 21:50 Completed Pending at discharge Category Date Time Status Fungal Culture no t HR/SK/BL Routine Lab 08/08/21 13:20 Results Miscellaneous Sanjuana t Routine Lab 08/08/21 13:20 Received Mycobacteria, Cul ture w/Fluor Routi ne Lab 08/08/21 13:20 Results Vitals: Last Vital Signs Temp 98.1 F 08/12/21 11:09 Pulse 69 08/12/21 11:09 Resp 16 08/12/21 11:09 BP 116/56 08/12/21 11:09 Pulse Ox 91 08/12/21 12:43 Discharge Plan Discharge Patient Disposition: Home Condition: Stable Prescriptions: New sulfamethoxazole-trimethoprim 800-160 mg Tablet 2 tab PO Q6H 6 Days Qty: 48 RF: 0 levothyroxine 25 mcg Tablet 25 mcg PO QAM 30 Days Qty: 30 RF: 3 famotidine 20 mg Tablet 20 mg PO BID 7 Days Qty: 14 RF: 0 prednisone 50 mg tablet 50 mg PO DAILY 7 Days Qty: 7 RF: 0 Allergy Medicine 25 mg tablet 25 mg PO Q4H Qty: 42 RF: 0 Continued ondansetron HCl [Zofran] 4 mg tablet 4 mg PO DAILY PRN (Reason: Nausea And Vomiting) RF: 0 venlafaxine [Effexor XR] 150 mg capsule,extended release 24hr 300 mg PO QAM RF: 0 Vitamin D3 25 mcg (1,000 unit) Tablet 25 mcg PO DAILY RF: 0 melatonin 5 mg Tablet 10 mg PO BEDTIME PRN (Reason: Sleep) RF: 0 pantoprazole 40 mg tablet,delayed release (DR/EC) 40 mg PO QAM RF: 0 folic acid 1 mg tablet 1 mg PO QAM RF: 0 diclofenac sodium 1 % gel 2 g topical QID PRN (Reason: Pain) RF: 0 Held valsartan-hydrochlorothiazide 80-12.5 mg tablet 1 tab PO QAM RF: 0 Hold Instructions: Resume on 08/26/21. Discontinued prednisone 10 mg tablet See Rx Instructions PO .COMPLEX PRN (Reason: joint pain) Qty: 30 RF: 1 Discharge Orders: Discharge Order (Routine); Ordered 08/12/21 Ordered By: To Harris Other Ambulatory Orders: Basic Metabolic Panel (Routine) Timeframe: 1 Week Facility: [facility] - Location: Lab - Main Lab Ordered By: To Harris Referrals: Beto Hoffmann MD [Primary Care Provider] - (PLEASE CALLL FOR APPOINTMENT) Chepe Suárez MD [Physician] - 2 weeks Kalia Mcgowan MD [Staff Physician] - 1 month Patient Instructions: Sulfamethoxazole/Trimethoprim (By mouth) (Bactrim, Bactrim DS,..., Famotidine (By mouth) (Acid Controller, Acid Supervisor Throwing Department, Pepcid AC, Pepcid), Levothyroxine (By mouth) (Levothroid, Levoxyl, Synthroid, Tirosint), Prednisone (By mouth) (predniSONE Intensol, Prednicot, Deltasone, Samantha), Diphenhydramine (By mouth), Opioid Safety Activity Restrictions/Additional Instructions: Please do not take methotrexate until you have finished the course of bactrim. Discharge Attestations Time Spent in Discharge Care*: less than 30 min Specific Discharge Activities: educating patient, educating and/or supporting family/caregiver, discussing with pcp/other providers, discussing with ed case manager/social workers/dc planners, documenting/other paperwork and evaluating patient/reviewing data Status at Discharge: Cognitive status at discharge: cognitively intact , Behavioral status at discharge: cooperative , Functional status at discharge: independent ambulation Overall status at discharge: patient is back to baseline Quality Metrics Clinical Quality Measures During this hospital stay, did patient experience: None Coding Level of Care Code Acute Chg FW DC note Diagnoses Ground glass opacity present on imaging of lung R91.8 NATALIA (acute kidney injury) N17.9 Hypotension I95.89 Hypotension type: other hypotension type Recurrent vomiting R11.10 Seropositive rheumatoid arthritis of multiple sites M05.79 Hyponatremia E87.1 Hypoxia R09.02 Drug rash L27.0
== END 2021-08-12 12:56 | disposition home or self-care (01) | DRG 193 ==
LOC: ER 19:58 → MEDSURG 20:49
PROVIDERS: Family Medicine; Internal Medicine Pulmonary Disease; Nurse Practitioner Family; Admitting Provider Student in an Organized Health Care Education/Training Program; Emergency Provider Family Medicine; PCP Family Medicine; Visit Provider Internal Medicine
PROC: 0BJ08ZZ Inspection of Tracheobronchial Tree, Via Natural or Artificial Opening Endoscopic (ICD-10-PCS; CPT 31622; principal; 2021-08-08 15:00)
DX: J18.9 Pneumonia, unspecified organism (principal); J96.01 Acute respiratory failure with hypoxia; N17.9 Acute kidney failure, unspecified; E87.1 Hypo-osmolality and hyponatremia; Z86.16 Personal history of COVID-19; M35.3 Polymyalgia rheumatica; M05.9 Rheumatoid arthritis with rheumatoid factor, unspecified; I10 Essential (primary) hypertension; M19.90 Unspecified osteoarthritis, unspecified site; Z79.52 Long term (current) use of systemic steroids; I95.9 Hypotension, unspecified; E86.0 Dehydration; L27.1 Localized skin eruption due to drugs and medicaments taken internally; T36.95XA Adverse effect of unspecified systemic antibiotic, initial encounter
CPT/HCPCS: 31622; 31624; 36415; 36600; 71045; 71275; 74177; 80051; 80053; 80074; 80202; 81003; 82330; 82436; 82533; 82550; 82728; 82803; 82805; 83516; 83605; 83615; 83735; 83880; 84100; 84133; 84145; 84155; 84165; 84300; 84443; 85007; 85025; 85378; 85610; 86140; 86160; 86162; 86235; 86255; 86376; 86403; 86850; 86900; 87015; 87040; 87070; 87086; 87102; 87116; 87205; 87206; 87426; 87449; 87635; 87641; 87798; 87799; 87801; 87804; 87806; 93005; 93306; 96360; 99285; J1200; J1956; J2405; J2543; J2704; J2930; J3010; J3370; J3475; J7030; Q9967

== ENCOUNTER → 2021-09-21 14:21 | Outpatient (BNVA) | payer MEDICARE, SELFPAY | PROVIDERS: PCP Family Medicine; Visit Provider Internal Medicine Rheumatology | DX: M05.79 Rheumatoid arthritis with rheumatoid factor of multiple sites without organ or systems involvement (principal); R91.8 Other nonspecific abnormal finding of lung field; Z79.899 Other long term (current) drug therapy; Z86.16 Personal history of COVID-19; Z71.89 Other specified counseling | CPT/HCPCS: 99214 ==

== ENCOUNTER 2021-11-15 13:29 | Outpatient (CLI) | payer MEDICARE, SELFPAY ==
--- NOTE | 2021-11-15 14:41 | PFTS_ITS ---
Date of Study:11/15/21 Date of Dictation: MECHANICS: Forced vital capacity (FVC) is normal. Forced expiratory volume in one second (FEV1) is normal. FEV1/FVC is normal. FLOW VOLUME LOOP: Minimal scooping likely age-related. LUNG VOLUMES: Total lung capacity (TLC) is normal. Residual volume (RV) is mildly reduced. DIFFUSING CAPACITY FOR CARBON MONOXIDE: Mild reduced. INTERPRETATION: The prebronchodilator spirometry is normal. Postbronchodilator spirometry was not performed. Isolated mild reduced residual volume likely nonspecific. Normal total lung capacity. Gas exchange (DLCO) is mildly reduced. MTDD
== END 2021-11-15 13:30 | disposition home or self-care (01) ==
PROVIDERS: PCP Family Medicine; Visit Provider Internal Medicine Pulmonary Disease
DX: J96.01 Acute respiratory failure with hypoxia (principal)
CPT/HCPCS: 94010; 94618; 94726; 94729

== ENCOUNTER → 2021-12-01 13:52 | Outpatient (BNVA) | payer MEDICARE, SELFPAY | PROVIDERS: PCP Family Medicine; Visit Provider Surgery | DX: Z20.822 Contact with and (suspected) exposure to COVID-19 (principal); Z11.52 Encounter for screening for COVID-19 | CPT/HCPCS: 87635 ==

== ENCOUNTER 2021-12-02 07:08 | Day surgery (SDC) | payer MEDICARE, SELFPAY ==
[2021-11-30 09:25] VITALS: BMI 28.3
--- NOTE | 2021-12-02 07:15 | P.ANESASSM_ITS ---
Pre-Anesthetic Assessment Height/Weight: Height 1.65 m Weight 77.111 kg Preop Diagnosis: SOB Operation Date: 12/02/21 08:45 Proposed Procedures p EGD/Colon 70089; r11.2,(Not Applicable) - Marcos Holt MD s colonoscopy 67025; z12.11(Not Applicable) - Marcos Holt MD Familial anesthetic complications: None Was Beta Skyla taken within 24 hours: N/A Was Clonidine taken within 24 hours: N/A Last intake: > 8hrs Social No alcohol and No tobacco Exam alert, oriented x 3, clear to auscultation bilaterally and regular rate & rhythm Airway Mallampati: Class I Dentition: other (top plate) Pulmonary Exertional Dyspnea Took methotrexate in july for her arthritis and developed an adverse reaction which affected her lungs CV/HEM Hypertension GI Gastroesophageal Reflux Disease Metabolic Thyroid Disease [facility] [place] Rheumatoid Arthritis Anesthetic Plan ASA status: 2 Anesthesia: MAC Risk of > 500 ml blood loss (7ml/kg in children): No Medications/Allergies Home Medications Medication Instructions Recorded Confirmed Last Taken Type venlafaxine 150 mg 300 mg PO QAM cap 05/10/20 11/30/21 08/04/21 07:00 History capsule,extended release 24 hr (Effexor XR) ondansetron HCl 4 mg tablet 4 mg PO DAILY PRN tab 07/21/20 11/30/21 Unknown History (Zofran) cholecalciferol (vitamin D3) 25 25 mcg PO DAILY 08/04/21 11/30/21 Unknown History mcg (1,000 unit) tablet (Vitamin D3) folic acid 1 mg tablet 1 mg PO QAM 08/04/21 11/30/21 08/04/21 07:00 History melatonin 5 mg tablet 10 mg PO BEDTIME PRN 08/04/21 11/30/21 Unknown History pantoprazole 40 mg tablet,delayed 40 mg PO QAM 08/04/21 11/30/21 08/04/21 07:00 History release valsartan 80 1 tab PO QAM 08/04/21 11/30/21 08/04/21 07:00 History mg-hydrochlorothiazide 12.5 mg tablet diphenhydramine HCl 25 mg tablet 25 mg PO Q4H #42 tab 08/12/21 11/30/21 Unknown Rx (Allergy Medicine) levothyroxine 25 mcg tablet 25 mcg PO QAM 30 Days #30 tab 08/12/21 11/30/21 Unknown Rx prednisone 20 mg tablet See Rx Instructions PO .COMPLEX 09/21/21 11/30/21 Unknown Rx PRN #30 tab Allergies Allergy/AdvReac Type Severity Reaction Status Date / Time methotrexate Allergy Severe lung/respiratory Verified 11/30/21 09:27 issues [facility] Anesthesia Medical History Acute respiratory failure with hypoxia Chest pain COVID-19 virus infection 04/2020 Family history of aortic aneurysm Family history of aortic aneurysm Frequent epistaxis Ground glass opacity present on imaging of lung High risk medication use History of polymyalgia rheumatica Hypertension Immunization counseling Immunosuppression-related infectious disease Inflammatory arthritis Joint pain Osteoarthritis Polymyalgia rheumatica Seropositive rheumatoid arthritis of multiple sites Uncontrolled hypertension Surgical History History of ankle surgery Family History Mother Aortic aneurysm Other Hypertension Rheumatoid arthritis Stroke Denies family history of Diabetes Lupus CAD (coronary artery disease) Cancer Social History Alcohol intake: never History of recent travel: No Data Anesthesia Cardiac Studies: Echocardiogram 08/05/21 Sestamibi Stress Test (Cardiology) 08/31/20
[2021-12-02 07:45] VITALS: BP 151/77; PULSE 82; RESP 18; TEMP 36.1; O2SAT 99
[2021-12-02] MEDS: sodium chloride 0.9% 1,000 ML 30 ML IV (07:45)
--- NOTE | 2021-12-02 08:25 | W.PM.OPSFHP ---
Same Day Surgery H&P Indication for Procedure/HPI DATE OF PROCEDURE: December 02, 2021 CHIEF COMPLAINT/INDICATIONFOR SURGICAL PROCEDURE: History of nausea and vomiting PREOP DIAGNOSIS: Nausea vomiting and screening colonoscopy PLANNED PROCEDURE: Operation Date: 12/02/21 08:45 Proposed Procedures p EGD/Colon 34908; r11.2,(Not Applicable) - Marcos Holt MD s colonoscopy 26249; z12.11(Not Applicable) - Marcos Holt MD 08/04/2021 This is a 70 years old female patient referred to my practice with history of episode of repeated vomiting that started about 11 weeks ago, patient has been on steroid therapy and methotrexate for about a year and she denies history of peptic ulcer disease.? When asked the patient if she has been on acid pill and she said that she has not yet on her medication list it seems that she is receiving pantoprazole 40 mg p.o. daily.? Patient also reports that she had history of anemia.? And she was diagnosed with COVID-19 back in April 2020.? Since patient started to develop later on dyspnea and shortness of breath.? And she is undergoing work-up per her primary care provider.? Patient reports to me that her episode of Covid was not that bad.? Recently she had a chest x-ray per her description and that was reported to be normal.? Also patient reports to me that she has elevated levels of renal functions And lower.? Hemoglobin level, never had a screening colonoscopy before and she is referred to my practice to investigate her recurrent vomiting and potential diagnostic endoscopy. At my office her oxygen saturation was reported to be 83% and on repeat one it showed 87% at her left index finger.? On room air.? Mild tachypnea 20 respiratory rate per minute, patient reports that she has not been on home oxygen and was not evaluated for that. 09/21/2021 Patient comes today after hospitalization for acute shortness of breath and she had extensive work-up including but not limited to bronchoscopy and a CT scan of the chest that showed no pulmonary emboli, CTA showed patchy bilateral groundglass airspace opacities.? Blood cultures negative to date.? COVID rapid antigen and PCR negative. Currently the patient is recovering well and she is visiting with me today with the plan for diagnostic EGD and colonoscopy for screening purposes, patient continues to report history of nausea and vomiting. 12/02/21 Patient comes today for diagnostic EGD and screening colonoscopy ROS All systems have been reviewed negative except as per the above or per problem list Medications/Allergies* Home Medications Medication Instructions Recorded Confirmed Type venlafaxine 150 mg 300 mg PO QAM cap 05/10/20 11/30/21 History capsule,extended release 24 hr (Effexor XR) ondansetron HCl 4 mg tablet 4 mg PO DAILY PRN tab 07/21/20 11/30/21 History (Zofran) cholecalciferol (vitamin D3) 25 25 mcg PO DAILY 08/04/21 11/30/21 History mcg (1,000 unit) tablet (Vitamin D3) folic acid 1 mg tablet 1 mg PO QAM 08/04/21 11/30/21 History melatonin 5 mg tablet 10 mg PO BEDTIME PRN 08/04/21 11/30/21 History pantoprazole 40 mg tablet,delayed 40 mg PO QAM 08/04/21 11/30/21 History release valsartan 80 1 tab PO QAM 08/04/21 11/30/21 History mg-hydrochlorothiazide 12.5 mg tablet Allergies/Adverse Reactions Allergy/AdvReac Type Severity Reaction Status Date / Time methotrexate Allergy Severe lung/respiratory Verified 12/02/21 08:26 issues Pertinent History/Comorbid Conditions* Medical History (Updated 09/24/21 @ 07:10 by Marcos Holt MD) Acute respiratory failure with hypoxia Chest pain COVID-19 virus infection 04/2020 Family history of aortic aneurysm Family history of aortic aneurysm Frequent epistaxis Ground glass opacity present on imaging of lung High risk medication use History of polymyalgia rheumatica Hypertension Immunization counseling Immunosuppression-related infectious disease Inflammatory arthritis Joint pain Osteoarthritis Polymyalgia rheumatica Seropositive rheumatoid arthritis of multiple sites Uncontrolled hypertension Surgical History (Updated 05/10/20 @ 13:25 by Tu Beltran MD) History of ankle surgery Family History (Updated 05/10/20 @ 11:37 by Fanta Elizabeth LPN) Rheumatoid arthritis Aortic aneurysm Mother Hypertension Stroke Denies family history of Diabetes Lupus CAD (coronary artery disease) Cancer Social History Alcohol intake: never History of recent travel: No Pertinent Exam Findings alert, oriented x 3, regular rate & rhythm and procedure specific exam findings (Abdominal examination nontender nondistended soft) Recommendations Surgery/Procedure today (EGD and colonoscopy with possible biopsy) Coding Level of Care Code Acute [employer] for [employer]berth Stewart
[2021-12-02 09:13] VITALS: BP 116/61; PULSE 67; RESP 16; TEMP 36.1; O2SAT 99
--- NOTE | 2021-12-02 09:15 | ANE.PACU2 ---
Inpatient post-anesthesia follow up: Airway intact: Yes Vital signs: Temperature 97.0 F Pulse Rate 67 Respiratory Rate 16 Blood Pressure 116/61 Pulse Oximetry 99 Oxygen Delivery Me thod Room Air Oxygen Flow Rate Fraction of Inspir ed Oxygen Hydration adequate: Yes Nausea and vomiting: No Pain level: 1 Mental status: Baseline
[2021-12-02 09:20] VITALS: BP 115/70; PULSE 70; RESP 18; O2SAT 98
== END 2021-12-02 09:39 | disposition home or self-care (01) ==
PROVIDERS: PCP Family Medicine; Visit Provider Surgery
PROC: 0DJ08ZZ Inspection of Upper Intestinal Tract, Via Natural or Artificial Opening Endoscopic (ICD-10-PCS; CPT 43235; principal; 2021-12-02 08:45)
PROC: 0DJD8ZZ Inspection of Lower Intestinal Tract, Via Natural or Artificial Opening Endoscopic (ICD-10-PCS; CPT 45378; 2021-12-02 08:45)
DX: Z12.11 Encounter for screening for malignant neoplasm of colon (principal); R11.2 Nausea with vomiting, unspecified; D12.5 Benign neoplasm of sigmoid colon; K57.30 Diverticulosis of large intestine without perforation or abscess without bleeding; Z79.52 Long term (current) use of systemic steroids; Z87.11 Personal history of peptic ulcer disease; Z86.16 Personal history of COVID-19; Z79.899 Other long term (current) drug therapy; M19.90 Unspecified osteoarthritis, unspecified site; I10 Essential (primary) hypertension; K21.9 Gastro-esophageal reflux disease without esophagitis
CPT/HCPCS: 43239; 45380; 88305; 88342; J2704; J7030

== ENCOUNTER → 2021-12-08 14:11 | Outpatient (BNVA) | payer MEDICARE, SELFPAY | PROVIDERS: PCP Family Medicine; Visit Provider Internal Medicine Pulmonary Disease | DX: B99.8 Other infectious disease (principal); J96.01 Acute respiratory failure with hypoxia; D84.9 Immunodeficiency, unspecified; M35.3 Polymyalgia rheumatica; Z86.16 Personal history of COVID-19; I10 Essential (primary) hypertension | CPT/HCPCS: 99214 ==

== ENCOUNTER → 2022-01-10 13:34 | Outpatient (BNVA) | payer MEDICARE, SELFPAY | PROVIDERS: PCP Family Medicine; Visit Provider Internal Medicine Rheumatology | DX: M05.79 Rheumatoid arthritis with rheumatoid factor of multiple sites without organ or systems involvement (principal); Z79.899 Other long term (current) drug therapy; R91.8 Other nonspecific abnormal finding of lung field; J01.90 Acute sinusitis, unspecified; Z86.16 Personal history of COVID-19 | CPT/HCPCS: 36415; 80076; 82565; 85025; 86140; 99214 ==

== ENCOUNTER 2022-01-25 14:33 | Outpatient (CLI) | payer MEDICARE, SELFPAY ==
--- NOTE | 2022-01-25 14:49 | XR_ITS ---
WS: [id number] XR chest 2V* [id number] REASON FOR EXAM: R06.02 - Shortness of breath FINDINGS: Moderate tortuosity thoracic aorta without aneurysmal dilatation. Normal heart size. Elevation the right hemidiaphragm Calcified granulomatous disease in both hemithoraces. No active pulmonary parenchymal or pleural disease identified. XR/XR chest 2V* [id number] IMPRESSION: No acute chest abnormality.
== END 2022-01-25 14:34 | disposition home or self-care (01) ==
PROVIDERS: PCP Family Medicine; Visit Provider Internal Medicine Rheumatology
DX: R06.02 Shortness of breath (principal)
CPT/HCPCS: 71046

== ENCOUNTER → 2022-02-01 15:03 | Outpatient (BNVA) | payer MEDICARE, SELFPAY | PROVIDERS: PCP Family Medicine; Visit Provider Surgery | DX: K62.5 Hemorrhage of anus and rectum (principal) | CPT/HCPCS: 99213 ==

== ENCOUNTER → 2022-03-02 12:34 | Outpatient (BNVA) | payer MEDICARE, SELFPAY | PROVIDERS: PCP Family Medicine; Visit Provider Internal Medicine Pulmonary Disease | DX: R06.02 Shortness of breath (principal); B99.8 Other infectious disease; D84.9 Immunodeficiency, unspecified; M35.3 Polymyalgia rheumatica; M05.79 Rheumatoid arthritis with rheumatoid factor of multiple sites without organ or systems involvement; U07.1 COVID-19; I10 Essential (primary) hypertension | CPT/HCPCS: 99214 ==

== ENCOUNTER → 2022-04-25 14:01 | Outpatient (BNVA) | payer MEDICARE, SELFPAY | PROVIDERS: PCP Family Medicine; Visit Provider Internal Medicine Rheumatology | DX: M05.79 Rheumatoid arthritis with rheumatoid factor of multiple sites without organ or systems involvement (principal); Z79.899 Other long term (current) drug therapy; Z71.89 Other specified counseling; Z79.52 Long term (current) use of systemic steroids; Z86.16 Personal history of COVID-19 | CPT/HCPCS: 36415; 80076; 82565; 85025; 86140; 99214 ==

== ENCOUNTER 2022-05-05 12:35 | Outpatient (CLI) | payer MEDICARE, SELFPAY ==
--- NOTE | 2022-05-05 12:44 | XR_ITS ---
WS: [id number] Pelvis, AP and frog-leg views, 05/05/2022 Clinical Data: M35.3 - Polymyalgia rheumatica Comparison: None. Findings: No fractures or dislocations are seen. The SI joints and pubic symphysis are intact. The soft tissues are not remarkable. There is narrowing of both hip joints with mild sclerosis of the acetabulum. There are small acetabul ar lips. There is no fragmentation of the femoral heads. There is sclerosis and cystic change on the pelvic side of the left SI joint. The pubic symphysis is unremarkable. XR/XR pelvis 1-2V* [id number] Impression: 1. Mild osteoarthritis of both hips. 2. Left sacroiliitis.
== END 2022-05-05 12:36 | disposition home or self-care (01) ==
LOC: RAD 12:38
PROVIDERS: PCP Family Medicine; Visit Provider Internal Medicine Rheumatology
DX: M35.3 Polymyalgia rheumatica (principal); Z79.899 Other long term (current) drug therapy; M16.0 Bilateral primary osteoarthritis of hip; M46.1 Sacroiliitis, not elsewhere classified
CPT/HCPCS: 72170

== ENCOUNTER 2022-05-12 14:26 | Outpatient (CLI) | payer MEDICARE, SELFPAY ==
[2022-05-12 14:54] LABS: Hemoglobin 10.3 g/dL (11.5-15.3)
[2022-05-15 17:58] LABS: HLA-B27 NEGATIVE (NEGATIVE)
== END 2022-05-12 14:27 | disposition home or self-care (01) ==
LOC: LAB 14:29
PROVIDERS: PCP Family Medicine; Visit Provider Internal Medicine Rheumatology
DX: M19.90 Unspecified osteoarthritis, unspecified site (principal); M35.3 Polymyalgia rheumatica; R89.9 Unspecified abnormal finding in specimens from other organs, systems and tissues; Z79.899 Other long term (current) drug therapy; M45.6 Ankylosing spondylitis lumbar region
CPT/HCPCS: 82565; 85018; 86812

== ENCOUNTER 2022-05-19 17:01 | Emergency (ER) | payer MEDICARE, SELFPAY ==
[2022-05-19 17:05] VITALS: BP 104/69; PULSE 80; RESP 17; O2SAT 99; BMI 29.6
--- NOTE | 2022-05-19 17:06 | XRR_ITS ---
PROCEDURE INFORMATION: Exam: XR Chest Exam date and time: 05/19/2022 5:19 PM Age: 71 years old Clinical indication: Cough and dyspnea; Additional info: Dyspnea/cough TECHNIQUE: Imaging protocol: Radiologic exam of the chest. Views: 1 view. COMPARISON: CR XR chest 2V* [id number] 01/25/2022 2:52 PM FINDINGS: Lungs: Unremarkable. No consolidation. Pleural spaces: Unremarkable. No pleural effusion. No pneumothorax. Heart/Mediastinum: Unremarkable. No cardiomegaly. Bones/joints: Unremarkable. XR/XR chest 1V portable [id number] IMPRESSION: No acute findings.
--- NOTE | 2022-05-19 17:09 | W.ED.SOB ---
HPI - SOB/Dyspnea General: Chief Complaint: Shortness of Breath/Dyspnea Stated Complaint: SOB/ WEAKNESS Time Seen by Provider: 05/19/22 17:05 Source: patient Mode of arrival: EMS History of Present Illness: HPI Narrative: 71-year-old female presents ER via EMS with complaint of shortness of breath she has a history of rheumatoid arthritis. She has had this shortness of breath for the last 10 months. She has seen pulmonology for it. She states she has a history of rheumatoid arthritis and suspect reading her note she may have some pulmonary effects from it. She states it worsened after she had COVID last year. She is not having any difficulty at rest and at rest in bed she is at 100% states with any activity she gets unusually short of breath quickly. She has not had any chest pain. She has had varying degrees of this for the last 10 months seems little bit worse lately. She denies any abdominal pain she does not smoke no known history of COPD or asthma. No known history of coronary artery disease. No history of DVTs. MD elicited complaint: shortness of breath Onset (ago): month(s) (10) Context: other (Rheumatoid arthritis worsening symptoms after COVID) Timing: intermittent Exacerbating factors: nothing Relieving factors: nothing Associated symptoms: Deny abdominal pain, chest congestion, chest pain, cough, diaphoresis, dizziness, extremity pain, fever(s), hemoptysis, lightheadedness, myalgias, nausea, orthopnea, palpitations, paresthesias, polydipsia, polyuria, rash, sense of impending doom, syncope or vomiting Treatment prior to arrival: none Review of Systems Const: Denies: fever(s), chills or diaphoresis ENMT: Denies: throat pain, ear or mastoid pain, nasal discharge or nasal congestion Card: Denies: chest pain, palpitations, lightheadedness, syncope or orthopnea Resp: Reports: dyspnea; Denies: productive cough, non-productive cough, wheezing, hemoptysis or chest congestion GI: Denies: abdominal pain, nausea or vomiting : Denies: flank pain, difficulty voiding, dysuria, urinary frequency or urinary urgency Musc: Denies: neck pain, back pain or extremity pain Skin/Breast: Denies: rash or pruritus Neuro: Denies: dizziness Endo: Denies: polyuria or polydipsia PFSH ED PFSH: Medical History Acute respiratory failure with hypoxia Acute sinusitis Chest pain Colon polyp COVID-19 virus infection 04/2020 Diverticulosis large intestine w/o perforation or abscess w/bleeding Family history of aortic aneurysm Family history of aortic aneurysm Frequent epistaxis Ground glass opacity present on imaging of lung High risk medication use History of polymyalgia rheumatica Hypertension Immunization counseling Immunosuppression-related infectious disease Inflammatory arthritis Joint pain Osteoarthritis Polymyalgia rheumatica Seropositive rheumatoid arthritis of multiple sites Uncontrolled hypertension Surgical History History of ankle surgery Family History Mother Aortic aneurysm Other Hypertension Rheumatoid arthritis Stroke Denies family history of Diabetes Lupus CAD (coronary artery disease) Cancer Social History Smoking and tobacco status: never smoked Alcohol intake: never History of recent travel: No Physical Exam Const: COMMON NORMALS: no acute distress GENERAL APPEARANCE: cooperative and comfortable ORIENTATION/CONSCIOUSNESS: Yes awake, Yes oriented to person, Yes oriented to place and Yes oriented to time HENMT: COMMON NORMALS: normocephalic, atraumatic and hearing grossly normal bilaterally HEAD & SCALP: normocephalic and atraumatic Resp: COMMON NORMALS: normal respiratory effort, No retractions, No use of accessory muscles and clear to auscultation bilaterally AUSCULTATION: clear to auscultation bilaterally Cardio: COMMON NORMALS: regular rate, regular rhythm and No murmurs present (Cardio) RATE: regular rate RHYTHM: regular rhythm GI: COMMON NORMALS: Soft to palpation and No hepatosplenomegaly present AUSCULTATION: Yes normoactive bowel sounds PALPATION: Yes Soft to palpation, No Tenderness to palpation present (GI), No Guarding due to palpation present (GI) and Yes No hepatosplenomegaly present Extremity: COMMON NORMALS: normal to inspection, capillary refill normal, no clubbing, cyanosis or edema, no calf tenderness and no pedal edema Neuro: SENSORIUM/ORIENTATION: Yes oriented to person, Yes oriented to place and Yes oriented to time Skin: COMMON NORMALS: no rashes or lesions noted GENERAL SKIN EXAM: no rashes or lesions noted Course Vital Signs: Vital signs: Vital Signs Temperature 98.6 F 05/19/22 17:14 Pulse Rate 80 05/19/22 17:05 Respiratory Rate 17 05/19/22 17:05 Blood Pressure 104/69 05/19/22 17:05 Pulse Oximetry 100 05/19/22 18:09 Oxygen Delivery Me thod 05/19/22 17:05 MDM - SOB/Dyspnea Medical Decision Making Long discussion with the patient. At this point there is nothing that really require acute admission I suspect as Dr. Jeffers's notes that this is advancement of rheumatoid arthritis causing some lung disease. She has had work-up with pulmonology and probably needs to go back and see them again. Incidental finding of acute mild kidney injury when I talked to her she had recently started valsartan hydrochlorothiazide just a couple of months ago. Blood pressure little low when she first came in its improved now organ to have her stop that and switch to amlodipine 2.5 mg daily give her a liter of fluids here and have her recheck blood pressure and kidney function next week at her primary care doctor's office. Also encouraged her to follow-up with pulmonology as soon as she is able. Medical Records I reviewed the patient's medical records. Lab Data I reviewed the patient's lab results. : 05/19/22 17:35 05/19/22 17:35 Labs/Radiology: Radiology Impressions Chest X-Ray 05/19/22 17:06 IMPRESSION: No acute findings. Laboratory Results WBC 10.7 10^3/uL (4.0-10.0) H 05/19/22 17:35 RBC 3.51 10^6/uL (4.1-5.3) L 05/19/22 17:35 Hgb 10.8 g/dL (11.5-15.3) L 05/19/22 17:35 Hct 32.1 % (37.0-47.0) L 05/19/22 17:35 MCV 91.5 fl (81-99) 05/19/22 17:35 MCH 30.8 pg (28.0-34.0) 05/19/22 17:35 MCHC 33.6 g/dL (30.0-36.0) 05/19/22 17:35 RDW 12.1 % (12.1-15.1) 05/19/22 17:35 Plt Count 330 10^3/cmm (130-400) 05/19/22 17:35 MPV 10.8 fL (7.4-10.4) H 05/19/22 17:35 Neut % (Auto) 66.0 % 05/19/22 17:35 Lymph % (Auto) 23.6 % 05/19/22 17:35 [place] % (Auto) 8.9 % 05/19/22 17:35 Eos % (Auto) 0.6 % 05/19/22 17:35 Baso % (Auto) 0.6 % 05/19/22 17:35 Neut # (Auto) 7.09 10^3/uL (1.8-7.7) 05/19/22 17:35 Lymph # (Auto) 2.5 10^3/uL (0.8-4.8) 05/19/22 17:35 [place] # (Auto) 1.0 10^3/uL (0.2-0.9) H 05/19/22 17:35 Eos # (Auto) 0.1 10^3/uL (0.0-0.8) 05/19/22 17:35 Baso # (Auto) 0.1 10^3/uL (0.0-0.1) 05/19/22 17:35 Nucleated RBC % (auto) 0 % 05/19/22 17:35 Nucleated RBCs # 0.0 /100WBC 05/19/22 17:35 Sodium 139 mmol/L (136-145) 05/19/22 17:35 Potassium 4.2 mmol/L (3.5-5.1) 05/19/22 17:35 Chloride 100 mmol/L (98-107) 05/19/22 17:35 Carbon Dioxide 20 mmol/L (22-29) L 05/19/22 17:35 Anion Gap 23.2 (5-19) H 05/19/22 17:35 BUN 42 mg/dL (8-23) H 05/19/22 17:35 Creatinine 2.4 mg/dL (0.5-0.9) H 05/19/22 17:35 GFR Calculation Not Reportable 05/19/22 17:35 Glucose 78 mg/dL (65-115) 05/19/22 17:35 Calculated Osmolality 297 mOsm/kg (285-295) H 05/19/22 17:35 Calcium 10.3 mg/dL (8.5-10.5) 05/19/22 17:35 Total Bilirubin 0.3 mg/dL (0.15-1.2) 05/19/22 17:35 AST 16 U/L (0-32) 05/19/22 17:35 ALT 7 U/L (0-33) 05/19/22 17:35 Alkaline Phosphatase 81 U/L (35-105) 05/19/22 17:35 Total Protein 7.4 g/dL (6.6-8.7) 05/19/22 17:35 Albumin 4.4 g/dL (3.5-5.2) 05/19/22 17:35 Globulin 3.0 g/dL (1.3-4.6) 05/19/22 17:35 Discharge Plan Discharge Patient Disposition: Home Clinical Impression: Dyspnea on exertion, Rheumatoid arthritis, Benign essential HTN, Creatinine elevation Condition: Stable Prescriptions: New albuterol sulfate 90 mcg/actuation HFA aerosol inhaler 2 inh INHALATION Q4H PRN (Reason: shortness of breath or wheezing) Qty: 18 0RF amlodipine 2.5 mg tablet 2.5 mg PO DAILY Qty: 30 0RF Discontinued valsartan-hydrochlorothiazide 80-12.5 mg tablet 1 tab PO QAM Hold Instructions: Resume on 08/26/21. No Action ondansetron HCl [Zofran] 4 mg tablet 4 mg PO DAILY PRN (Reason: Nausea And Vomiting) prednisone 10 mg tablet 10 mg PO DAILY Qty: 90 1RF venlafaxine [Effexor XR] 150 mg capsule,extended release 24hr 300 mg PO QAM Enbrel 50 mg/mL (1 mL) syringe 50 mg SUBCUT .Q7days Qty: 4 3RF prednisone 2.5 mg tablet 2.5 mg PO DAILY Qty: 90 1RF acetaminophen-codeine 300-30 mg tablet 1 tab PO TID PRN (Reason: pain) Qty: 60 1RF Carafate 1 gram tablet 1 g PO TID 84 Days Qty: 252 2RF cholecalciferol (vitamin D3) [Vitamin D3] 25 mcg (1,000 unit) Tablet 25 mcg PO DAILY melatonin 5 mg Tablet 10 mg PO BEDTIME PRN (Reason: Sleep) pantoprazole 40 mg tablet,delayed release (DR/EC) 40 mg PO QAM folic acid 1 mg tablet 1 mg PO QAM levothyroxine 25 mcg Tablet 25 mcg PO QAM 30 Days Qty: 30 3RF diphenhydramine HCl [Allergy Medicine] 25 mg tablet 25 mg PO Q4H Qty: 42 0RF Discharge Orders: Discharge ED (Routine); Ordered 05/19/22 Ordered By: Kristofer Rodriguez Referrals: Beto Hoffmann MD [Primary Care Provider] - Discharge Diet: Usual diet Discharge Activity: Limit activity as instructed Patient Instructions: Opioid Safety Activity Restrictions/Additional Instructions: Avoid exertional activity. 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 Coding Level of Care Code ED [employer] Hand for [place] Fwd Exam Detailed
[2022-05-19 17:14] VITALS: TEMP 37
--- NOTE | 2022-05-19 17:23 | ECG_ITS ---
[facility] Test Date: 2022-05-19 Pat Name: Armida Lawler Department: Room: Gender: Female [employer] Ventilator: : 1950 Requested By: Kristofer Gallegos Order Number: [id number] Aris MD: Irais Isaac M.D. Measurements Intervals [place] Rate: 78 P: 20 MA: 141 QRS: 26 QRSD: 90 T: 29 QT: 387 QTc: 443 Interpretive Statements SINUS RHYTHM NONSPECIFIC T-WAVE ABNORMALITY Compared to ECG 08/04/2021 17:10:07 T-wave abnormality now present Electronically Signed On 05-20-2022 13:17:06 CDT by Irais Isaac M.D. [id number]
[2022-05-19 17:30] VITALS: BP 112/72; PULSE 90; RESP 16; O2SAT 100
[2022-05-19 17:40] LABS: Basophils # 0.1 10^3/uL (0.0-0.1); Basophils % 0.6 %; Eosinophils # 0.1 10^3/uL (0.0-0.8); Eosinophils % 0.6 %; Hematocrit 32.1 % (37.0-47.0); Hemoglobin 10.8 g/dL (11.5-15.3); Lymphocytes # 2.5 10^3/uL (0.8-4.8); Lymphocytes % 23.6 %; Mean Corpuscular HGB Conc 33.6 g/dL (30.0-36.0); Mean Corpuscular Hemoglobin 30.8 pg (28.0-34.0); Mean Corpuscular Volume 91.5 fl (81-99); Mean Platelet Volume 10.8 fL (7.4-10.4); Monocytes % 8.9 %; Neutrophils # 7.09 10^3/uL (1.8-7.7); Nucleated Red Blood Cells % 0 %; Platelet Count 330 10^3/cmm (130-400); Red Blood Count 3.51 10^6/uL (4.1-5.3); Red Cell Distribution Width 12.1 % (12.1-15.1); White Blood Count 10.7 10^3/uL (4.0-10.0)
[2022-05-19 18:00] VITALS: BP 150/62; PULSE 79; RESP 16; O2SAT 99
[2022-05-19 18:05] LABS: Alanine Aminotransferase 7 U/L (0-33); Albumin Level 4.4 g/dL (3.5-5.2); Alkaline Phosphatase 81 U/L (35-105); Anion Gap 23.2 (5-19); Aspartate Amino Transferase 16 U/L (0-32); Blood Urea Nitrogen 42 mg/dL (8-23); Calcium 10.3 mg/dL (8.5-10.5); Carbon Dioxide 20 mmol/L (22-29); Chloride 100 mmol/L (98-107); Glucose 78 mg/dL (65-115); Osmolality Calculated 297 mOsm/kg (285-295); Potassium 4.2 mmol/L (3.5-5.1); Sodium 139 mmol/L (136-145); Total Bilirubin 0.3 mg/dL (0.15-1.2); Total Protein 7.4 g/dL (6.6-8.7)
[2022-05-19 18:09] VITALS: O2SAT 100; O2SAT 95
[2022-05-19] MEDS: sodium chloride 0.9% 1,000 ML 999 ML IV (18:35)
[2022-05-19 20:12] VITALS: BP 147/69; PULSE 90; RESP 16; O2SAT 97
== END 2022-05-19 20:05 | disposition home or self-care (01) ==
PROVIDERS: Emergency Provider Family Medicine; PCP Family Medicine
DX: R06.00 Dyspnea, unspecified (principal); M06.9 Rheumatoid arthritis, unspecified; I10 Essential (primary) hypertension; R79.89 Other specified abnormal findings of blood chemistry
CPT/HCPCS: 71045; 80053; 85025; 93005; 94760; 99285; J7030

== ENCOUNTER → 2022-07-27 15:04 | Outpatient (BNVA) | payer MEDICARE, SELFPAY | PROVIDERS: PCP Family Medicine; Visit Provider Internal Medicine Rheumatology | DX: M05.79 Rheumatoid arthritis with rheumatoid factor of multiple sites without organ or systems involvement (principal); I10 Essential (primary) hypertension; Z79.899 Other long term (current) drug therapy; Z71.89 Other specified counseling; Z86.16 Personal history of COVID-19; R91.8 Other nonspecific abnormal finding of lung field; Z79.891 Long term (current) use of opiate analgesic | CPT/HCPCS: 99214 ==

== ENCOUNTER → 2023-04-03 15:07 | Outpatient (BNVA) | payer BC, SELFPAY | PROVIDERS: PCP Family Medicine; Visit Provider Internal Medicine Rheumatology | DX: M05.79 Rheumatoid arthritis with rheumatoid factor of multiple sites without organ or systems involvement (principal); I10 Essential (primary) hypertension; Z71.89 Other specified counseling; Z79.899 Other long term (current) drug therapy | CPT/HCPCS: 36415; 80076; 82085; 82550; 82565; 85025; 85651; 86140 ==

== ENCOUNTER → 2023-07-03 14:55 | Outpatient (BNVA) | payer MEDICARE, SELFPAY | PROVIDERS: Visit Provider Internal Medicine Rheumatology | DX: M05.79 Rheumatoid arthritis with rheumatoid factor of multiple sites without organ or systems involvement (principal); J84.9 Interstitial pulmonary disease, unspecified; Z79.899 Other long term (current) drug therapy; I10 Essential (primary) hypertension; Z71.89 Other specified counseling | CPT/HCPCS: 36415; 80076; 82565; 85025; 86140; 99214 ==

== ENCOUNTER 2023-07-05 06:00 | Outpatient (RCR) | payer MEDICARE, SELFPAY | END 2023-07-17 23:59 | disposition home or self-care (01) | LOC: MPT 06:00 | PROVIDERS: Visit Provider Internal Medicine Rheumatology | DX: M05.79 Rheumatoid arthritis with rheumatoid factor of multiple sites without organ or systems involvement (principal) | CPT/HCPCS: 97162 ==

== ENCOUNTER → 2023-09-24 14:15 | Outpatient (BNVA) | payer MEDICARE, SELFPAY | PROVIDERS: Visit Provider Internal Medicine Pulmonary Disease | DX: R06.02 Shortness of breath (principal); M35.3 Polymyalgia rheumatica; M05.79 Rheumatoid arthritis with rheumatoid factor of multiple sites without organ or systems involvement; Z79.899 Other long term (current) drug therapy; Z71.89 Other specified counseling; Z86.16 Personal history of COVID-19 | CPT/HCPCS: 99214 ==

== ENCOUNTER → 2023-11-23 11:02 | Outpatient (BNVA) | payer MEDICARE, SELFPAY | PROVIDERS: Visit Provider Internal Medicine Pulmonary Disease | DX: R06.02 Shortness of breath (principal); M35.3 Polymyalgia rheumatica; M05.79 Rheumatoid arthritis with rheumatoid factor of multiple sites without organ or systems involvement; Z79.899 Other long term (current) drug therapy | CPT/HCPCS: 99214 ==

== ENCOUNTER 2023-12-12 12:19 | Outpatient (CLI) | payer MEDICARE, SELFPAY ==
--- NOTE | 2023-12-12 13:30 | CTR_ITS ---
PROCEDURE INFORMATION: Exam: CT Chest Without Contrast; Diagnostic Exam date and time: 12/12/2023 12:37 PM Age: 73 years old Clinical indication: Shortness of breath; Additional info: Hrct, PT phone [phone] TECHNIQUE: Imaging protocol: Diagnostic computed tomography of the chest without contrast. Radiation optimization: All CT scans at this facility use at least one of these dose optimization techniques: automated exposure control; mA and/or kV adjustment per patient size (includes targeted exams where dose is matched to clinical indication); or iterative reconstruction. COMPARISON: CT angio chest w abd pel w con 08/04/2021 5:48 PM RADIATION DOSE METRICS: Total DLP (mGy-cm): 920.45 FINDINGS: Lungs: Large calcified granuloma in the left lower lobe. Tiny calcified granuloma in the right upper lobe. The no significant chronic lung disease. Pleural spaces: Unremarkable. No pneumothorax. No pleural effusion. Heart: Unremarkable. No cardiomegaly. No pericardial effusion. Coronary arteries: Coronary artery calcifications. Lymph nodes: Unremarkable. No enlarged lymph nodes. Vasculature: Unremarkable. No aortic aneurysm. Bones/joints: Unremarkable. No acute fracture. Soft tissues: Unremarkable. CT/CT chest con [id number] IMPRESSION: No acute findings.
== END 2023-12-12 12:20 | disposition home or self-care (01) ==
LOC: RAD 12:20
PROVIDERS: Visit Provider Internal Medicine Pulmonary Disease
DX: J84.9 Interstitial pulmonary disease, unspecified (principal)
CPT/HCPCS: 71250

== ENCOUNTER 2023-12-13 12:53 | Outpatient (CLI) | payer MEDICARE, SELFPAY | END 2023-12-13 12:54 | disposition home or self-care (01) | LOC: RT 12:53 | PROVIDERS: Visit Provider Internal Medicine Pulmonary Disease | DX: R06.02 Shortness of breath (principal) | CPT/HCPCS: 94010; 94618; 94726; 94729 ==

== ENCOUNTER → 2024-01-25 11:01 | Outpatient (BNVA) | payer MEDICARE, SELFPAY | PROVIDERS: Visit Provider Internal Medicine Pulmonary Disease | DX: R06.02 Shortness of breath (principal); M35.3 Polymyalgia rheumatica; M05.79 Rheumatoid arthritis with rheumatoid factor of multiple sites without organ or systems involvement; Z79.899 Other long term (current) drug therapy | CPT/HCPCS: 99214 ==

== ENCOUNTER → 2024-03-18 13:21 | Outpatient (BNVA) | payer MEDICARE, SELFPAY | PROVIDERS: Visit Provider Nurse Practitioner Family | DX: L91.8 Other hypertrophic disorders of the skin (principal); L57.8 Other skin changes due to chronic exposure to nonionizing radiation; L81.4 Other melanin hyperpigmentation; L82.0 Inflamed seborrheic keratosis | CPT/HCPCS: 17110; 99213 ==

== ENCOUNTER → 2024-04-16 13:07 | Outpatient (BNVA) | payer MEDICARE, SELFPAY | PROVIDERS: Visit Provider Internal Medicine Rheumatology | DX: M05.79 Rheumatoid arthritis with rheumatoid factor of multiple sites without organ or systems involvement (principal); I10 Essential (primary) hypertension; Z79.899 Other long term (current) drug therapy; Z71.85 Encounter for immunization safety counseling | CPT/HCPCS: 72100; 73502; 99214 ==

== ENCOUNTER → 2024-11-24 10:31 | Outpatient (BNVA) | payer MEDICARE, SELFPAY | PROVIDERS: Visit Provider Internal Medicine Rheumatology | DX: M05.79 Rheumatoid arthritis with rheumatoid factor of multiple sites without organ or systems involvement (principal); Z79.899 Other long term (current) drug therapy; I10 Essential (primary) hypertension; Z71.89 Other specified counseling | CPT/HCPCS: 36415; 73562; 80076; 82565; 85025; 85651; 86140; 99214 ==

== ENCOUNTER → 2025-03-16 10:43 | Outpatient (BNVA) | payer MEDICARE, SELFPAY | PROVIDERS: Visit Provider Internal Medicine Rheumatology | DX: M05.79 Rheumatoid arthritis with rheumatoid factor of multiple sites without organ or systems involvement (principal); Z79.899 Other long term (current) drug therapy; I10 Essential (primary) hypertension; M54.50 Low back pain, unspecified; Z71.89 Other specified counseling | CPT/HCPCS: 36415; 72040; 80076; 82565; 85025; 85651; 86140; 99214 ==